=== PATIENT | male | born 1935 | race Caucasian/White ===

== ENCOUNTER 2018-06-18 09:33 | Observation (INO) | payer OTHER, MEDICARE ==
[2018-06-18] MEDS ORDERED: ADENOSINE 6 MG/2 ML VIAL IVPUSH ONE ×2 (09:41→10:01)
--- NOTE | 2018-06-18 09:43 | PDOC ---
Attending Attestation - Resident Resident Name: Franc Reynoso - ED Attending Attestation I have performed the following: I have examined & evaluated the patient, The case was reviewed & discussed with the resident, I agree w/resident's findings & plan, Exceptions are as noted - HPI HPI: 06/18/18 10:12 82y M hx of CABG raynauds syndrome, BPH, HL, hypothryoidism, htn, brought in by PMD for evaluation of sob/palpitations. Pt states he was feelnig unwell for approx 10 days with some weakness when ambulating occasionally but w/o cp, n/v, dipahorsis, cough, n/v, diarrhea, melena, bpr, dysuria. He does endorse some mild occasional discomfort in his R chest when he coughs/sneezes, takes a deep breath. Pt notse he was eating breakfast this morning when he started feeling palpitations. went to dr. grande office had an EKG that showed the pt was in SVT. pt denies any associated cp but notse he had some ROSENBERG/lightheaded this morning. no associated cristino cough, hemoptysis, leg swelling, calf pain, uri like symptoms PMD:Dr. Abdi Card: Dr. Hurt - Physicial Exam PE: 06/18/18 10:17 (exam from arrival) GENERAL: The patient is awake, alert, and fully oriented, Nontoxic - in no acute distress, pale appaering HEAD: Normocephalic, atraumatic. EYES: extraocular movements intact, sclera anicteric, conjunctiva clear. ENT: Normal voice, Moist mucous membranes. NECK: Normal range of motion, supple LUNGS: Breath sounds equal, clear to auscultation bilaterally. No wheezes, no rhonchi, no rales. HEART: tachycardic, ABDOMEN: Soft, nontender, No guarding, no rebound. . No CVA tenderness EXTREMITIES: Normal range of motion, no edema. no calf tenderness, neg homans sign NEUROLOGICAL: No facial assymetry, Normal speech, nromal gait, moving all 4 extremities spontaneously and symmetrically PSYCH: Normal mood, normal affect. SKIN: Warm, Dry, - Critical Care Time Total Critical Care Time: 45 Critical Care Statement: The care of this patient involved high complexity decision making to prevent further life threatening deterioration of the patient 's condition and/or to evaluate & treat vital organ system(s) failure or risk of failure. - Medical Decision Making 06/18/18 10:18 upon arrival, the patient's heart rate was in the 160s appeared regular. The patient was immediately placed on site monitor EKG revealed SVT. Attempted Valsalva without success. The patient was given 6 mg adenosine with success and breaking his SVT into a normal sinus rhythm sinus arrhythmia within improvement of the patient's clinically symptoms with resolution of his shortness of breath, lightheadedness and palpitations. pt placed on site monitor Will obtain blood work to rule out anemia, metabolic derangements, cardaic injury ua to r/o uti will dw dr. Abdi and Dr Hurt 06/18/18 10:46 pts cxr noted for RLL infiltrate vs effusion - suspect this may bethe cause of his discomfort th epast 10 days. labs unremarkble 06/18/18 12:37 cxr noted for effusion without signs of infiltrate will admit for further management of his effusion Heart Score/ECG Review - ECG Impressions Comment:: 06/18/18 10:20 Twelve-lead EKG was performed and reviewed by me. EKG performed at 9:41 HR of 158 axis is normal no st changes suggstive of ischemia impression SVT Twelve-lead EKG was performed and reviewed by me. ekg prformed at 9:49am There is normal sinus rhythm with a normal rate. rate of 94 normal axis There is normal R wave progression There are no ST or T wave abnormalities. Impression: sinus arrythmia
--- NOTE | 2018-06-18 09:59 | PDOC ---
History of Present Illness - General Chief Complaint: Tachycardia Stated Complaint: SVT Time Seen by Provider: 06/18/18 09:34 History Source: Patient, Primary Care Provider (Dr. Abdi accompanied pt to the department with EKG and HPI) Exam Limitations: No Limitations - History of Present Illness Initial Comments: HPI: 82 y/o male presenting to ER from Dr. Justice office complaining of rapid heart rate, palpitations, and shortness of breath. Noted to be in SVT on 12- lead EKG in clinic. Pt states the symptoms started this morning after eating breakfast. Denies caffeine intake or other stimulant use. Took ASA 325mg. Endorses exertional fatigue and loss of appetite over past several weeks. Denies chest pain, orthopnea, nocturnal paroxysmal dyspnea, or lower extremity swelling. Pt denies history of similar symptoms. Denies history of irregular heart rate. Is s/p quadruple CABG at [facility] in 1999 and stent in 2016. Family Hx: - Brother has silent arrhythmia PCP: Dr. Abdi Churn Driller: Dr. Matthew Hurt Social Hx: - Former smoker, 30-40 years, stopped 1999 Medical Hx: - CAD s/p stent 2016 - s/p CABG 1999 - HTN - HLD - Hypothyroidism - Raynauds - Osteoarthritis Surgical Hx: - Hernia repair - Left Hip replacement - Left knee replacement Past History - Past Medical History Allergies/Adverse Reactions: Allergies Allergy/AdvReac Type Severity Reaction Status Date / Time No Known Drug Allergies Allergy NASAL Verified 12/06/14 11:09 CONGESTION/SNEEZING seasonal allergies Allergy Uncoded 12/06/14 11:09 Home Medications: Ambulatory Orders Aspirin [Aspir 81] 81 mg PO DAILY 12/10/12 Cholecalciferol (Vitamin D3) [Vitamin D3] 2,000 unit PO DAILY tablet 02/12/16 Simvastatin 40 mg PO HS 06/18/18 Triamterene/Hydrochlorothiazid [Triamterene-Hctz 37.5-25 mg Cp] 1 each PO DAILY 06/18/18 Anemia: No Asthma: No 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) Cardiac Disorders: Yes (CAD) CVA: No COPD: No CHF: No Dementia: No Diabetes: No GI Disorders: No Disorders: No HTN: Yes Hypercholesterolemia: Yes (DX 1984) Liver Disease: No Seizures: No Thyroid Disease: Yes (HYPOTHYROIDISM) - Surgical History Abdominal Surgery: Yes (INGUINAL HERNIA REPAIR) Appendectomy: No Cardiac Surgery: Yes (QUINTUPLE BYPASS-2000; Stent (2017)) Cholecystectomy: No Lung Surgery: No Neurologic Surgery: No Orthopedic Surgery: Yes (LEFT HIP REPLACEMENT-2009; Left knee replacement) - Family Disease History Family Disease History: Heart Disease: Brother (A-Fib) - Suicide/Smoking/Psychosocial Hx Smoking History: Former smoker Years of Tobacco Use: 40 Have you smoked in the past 12 months: No Number of Cigarettes Smoked Daily: 25 If you are a former smoker, when did you quit?: 1999 Hx Alcohol Use: No Drug/Substance Use Hx: No Substance Use Type: None Hx Substance Use Treatment: No Review of Systems - Review of Systems Able to Perform ROS?: Yes Comments:: In addition to that documented in the HPI above, the additional ROS was obtained : Constitutional: Denies fevers or chills Head: Denies headache ENMT: Denies sore throat CV: Per HPI Resp: Per HPI GI: Denies vomiting or diarrhea : Denies painful urination MSK: Denies recent trauma Skin: Denies new rashes Neuro: Denies new numbness or tingling or weakness Endocrine: Denies polyuria Heme: Denies bleeding or bruising *Physical Exam - Vital Signs Vital Signs (72 hours) 06/18/18 06/18/18 09:34 10:00 Temperature 97.6 F Pulse Rate 159 H Pulse Rate [ 86 Apical] Respiratory 20 18 Rate Blood Pressure 120/107 H Blood Pressure 120/73 [Left Arm] O2 Sat by Pulse 100 99 Oximetry (%) - Physical Exam Comments: Constitutional: Non-toxic elderly male appearing in no acute distress or obvious discomfort. Ambulated unassisted and without difficulty to the ED accompanied by Dr. Abdi. Alert and oriented x4. Answered all questions appropriately and completely. Speech was non-labored, non-pressured. Head: Normocephalic. No obvious external signs of trauma. Eyes: Sclerae white. Ears: Hearing grossly intact. Nose: No nasal discharge. Neck: Supple, trachea is midline. Cardiovascular / Chest: Tachycardic rate and regular rhythm. No murmur, rubs, clicks, or gallops. Peripheral pulses: radial pulses full. Respiratory: Breathing unlabored. Equal chest rise and fall. Clear to auscultation bilaterally. No stridor, no wheezing, no rhonchi. Gastrointestinal: abdomen is soft, non-tender, non-distended. Neuro: Alert and oriented. Moving all four extremities spontaneously. Gait normal. Skin: Warm, dry, and intact. Psych: Affect: appropriate. Mood: normal. ED Treatment Course - LABORATORY CBC & Chemistry Diagram: 06/18/18 10:00 06/18/18 10:00 Medical Decision Making - Medical Decision Making *Reviewed vital signs, nursing notes, and prior visit documentation (if available). 82 y/o male presenting in SVT at a ventricular rate of 158 bpm. Initial vitals unremarkable for hypotension or hypoxia. Attempted vagal maneuvers without success. IV established and 6mg of Adenosine were administered rapid IVP. Continue cardiac tracing captured conversion to sinus rhythm. Repeat 12-lead EKG revealed sinus rhythm at a ventricular rate of [address] segment elevation or depression. Will obtain CXR, CBC, CMP, Troponin, and TSH to further evaluate. CXR revealed lower right pleural effusion. Will obtain noncontrast CT scan to further evaluate given smoking history and unilateral nature. No coughing or additional respiratory symptoms. Chest CT remarkable for moderate pleural effusion with ill-defined left apical nodule. Low suspicion for pneumonia. Will withhold antibiotics at this time. Will defer further workup to inpatient versus outpatient care teams. CBC unremarkable for leukocytosis or anemia. CMP unremarkable for significant electrolyte derangement or LFT elevation. Initial troponin not elevated. Will trend at 3 hour guzman. 12:09 Telephone page sent for Dr. Hurt through clinic staff. Awaiting call back. 12:[address] Hurt. Verbally appraised of the pts HPI, ED course, and current plan of management. Requests pt be admitted for observation and Dr. Orozco be consulted. 12:[address] sent for Dr. Young, attending covering for Dr. Orozco, through clinic staff. Awaiting call back. 12:[address] Young. Verbally appraised of the pts HPI, ED course, and current plan of management. Will evaluate the pt. No additional ordered requested. 12:44 Microblog sent to [facility] for admission. Awaiting call back. 13:15 Telephone consultation with JELANI Plummer. Verbally appraised of the pts HPI, ED course, and current plan of management. Will admit pt to observation on telemetry for attending Dr. Taylor. Pt admitted to telemetry. TSH and repeat troponin pending. *DC/Admit/Observation/Transfer Diagnosis at time of Disposition: SVT (supraventricular tachycardia), Pleural effusion, right, Nodule of left lung - Discharge Dispostion Condition at time of disposition: Good Decision to Admit order: Yes - Referrals Referrals: Andrew Abdi MD [Primary Care Provider] - - Patient Instructions - Post Discharge Activity
[2018-06-18 10:15] VITALS: BMI 27.6
[2018-06-18 10:53] LABS: URINE APPEARANCE Clear; URINE BILIRUBIN Negative (NEGATIVE); URINE COLOR Yellow; URINE GLUCOSE (UA) Negative (NEGATIVE); URINE KETONE Negative (NEGATIVE); URINE LEUK ESTERASE Negative (NEGATIVE); URINE NITRITE Negative (NEGATIVE); URINE PROTEIN Negative (NEGATIVE); URINE UROBILINOGEN 0.2 (0.2-1.0)
[2018-06-18 11:14] LABS: BASO % 0.1 % (0-2.0); EOS % 2.5 % (0-4.5); HEMATOCRIT 43.5 % (35.4-49); HEMOGLOBIN 14.3 GM/dl (11.7-16.9); LYMPH % 13.8 % (8-40); MCH 30.4 pg (25.7-33.7); MCHC 32.9 g/dl (32.0-35.9); MEAN CELL VOLUME 92.4 fl (80-96); MEAN PLT VOLUME 7.4 fl (7.5-11.1); NEUT % 76.6 % (42.8-82.8); PLATELET COUNT 246 K/MM3 (134-434); RBC 4.71 M/mm3 (4.00-5.60); RDW 12.9 % (11.9-15.9); WHITE BLOOD COUNT 7.5 K/mm3 (4.0-10.8)
[2018-06-18 11:25] LABS: ALBUMIN 3.3 g/dl (3.4-5.0); ALK PHOS 74 U/L (45-117); ANION GAP 9 MMOL/L (8-16); BILIRUBIN,TOTAL 0.3 mg/dl (0.2-1); BLOOD UREA NITROGEN 17 mg/dl (7-18); CALCIUM 8.8 mg/dl (8.5-10); CHLORIDE 98 mmol/L (98-107); CO2 26 mmol/L (21-32); CREATININE 1.3 mg/dl (0.55-1.3); GLUCOSE,RANDOM 155 mg/dl (74-106); POTASSIUM 4.2 mmol/L (3.5-5.1); SGOT/AST 23 U/L (15-37); SGPT/ALT 11 U/L (13-61); SODIUM 133 mmol/L (136-145); TOT PROT 6.4 g/dl (6.4-8.2)
[2018-06-18 12:32] LABS: URINE RBC 0-3 /hpf (0-3); URINE WBC 0-3 (0-2)
--- NOTE | 2018-06-18 13:15 | HP ---
CHIEF COMPLAINT: Shortness of breath, palpitations PCP: Dr. Abdi Cardiology: Dr. Hurt/[facility] cardiologists HISTORY OF PRESENT ILLNESS: 82 year-old female with a PMH of HTN, HLD, CAD s/p CABG x 5v s/p stent, hypothyroidism, Raynaud's, and BPH. Patient has been feeling unwell for approximately 10 days, experiencing weakness when ambulating, and right chest discomfort with coughing, sneezing, and deep breathing. When eating breakfast this morning, patient started feeling palpitations. He went to Dr. Abdi's office and had an ECG that showed SVT. Dr. Abdi escorted the patient to the ED. ER course was notable for: (1) SVT @158bpm; vagal maneuvers without success; adenosine 6mg x 1 with conversion to SR @ 94bpm (2) CT chest: moderate RIGHT pleural effusion with an ill-defined LEFT apical nodule (3) Troponin neg x 1 Recent Travel: No PAST MEDICAL HISTORY: Hypertension Hyperlipidemia Coronary artery disease Hypothyroidism Raynaud's BPH Scalp melanoma PAST SURGICAL HISTORY: CABG x 5v (1999) Cardiac stent (2016) Left hip replacement Left knee replacement Inguinal hernia repair Social History: Smoking: quit 1999 Alcohol: quit 1989 Drugs: no Family History: brother with afib Allergies No Known Drug Allergies Allergy (Verified 12/06/14 11:09) NASAL CONGESTION/SNEEZING seasonal allergies Allergy (Uncoded 12/06/14 11:09) HOME MEDICATIONS: Home Medications Medication Instructions Recorded Aspirin [Aspir 81] 81 mg PO DAILY 12/10/12 Cholecalciferol (Vitamin D3) 2,000 unit PO DAILY tablet 02/12/16 [Vitamin D3] Simvastatin 40 mg PO HS 06/18/18 Triamterene/Hydrochlorothiazid 1 each PO DAILY 06/18/18 [Triamterene-Hctz 37.5-25 mg Cp] REVIEW OF SYSTEMS CONSTITUTIONAL: Absent: fever, chills, diaphoresis, generalized weakness, malaise, loss of appetite, weight change HEENT: Absent: rhinorrhea, nasal congestion, throat pain, throat swelling, difficulty swallowing, mouth swelling, ear pain, eye pain, visual changes CARDIOVASCULAR: +palpitations Absent: chest pain, syncope, palpitations, irregular heart rate, lightheadedness , peripheral edema RESPIRATORY: +weakness with ambulation, right chest discomfort with cough/sneeze/deep breathing Absent: cough, shortness of breath, dyspnea with exertion, orthopnea, wheezing, stridor, hemoptysis GASTROINTESTINAL: Absent: abdominal pain, abdominal distension, nausea, vomiting, diarrhea, constipation, melena, hematochezia GENITOURINARY: Absent: dysuria, frequency, urgency, hesitancy, hematuria, flank pain, genital pain MUSCULOSKELETAL: Absent: myalgia, arthralgia, joint swelling, back pain, neck pain SKIN: Absent: rash, itching, pallor HEMATOLOGIC/IMMUNOLOGIC: Absent: easy bleeding, easy bruising, lymphadenopathy, frequent infections ENDOCRINE: +palpitations Absent: unexplained weight gain, unexplained weight loss, heat intolerance, cold intolerance NEUROLOGIC: Absent: headache, focal weakness or paresthesias, dizziness, unsteady gait, seizure, mental status changes, bladder or bowel incontinence PSYCHIATRIC: Absent: anxiety, depression, suicidal or homicidal ideation, hallucinations. PHYSICAL EXAMINATION Vital Signs - 24 hr 06/18/18 06/18/18 06/18/18 09:34 10:00 10:30 Temperature 97.6 F Pulse Rate 159 H Pulse Rate [ 86 86 Apical] Respiratory 20 18 19 Rate Blood Pressure 120/107 H Blood Pressure 120/73 114/60 [Left Arm] O2 Sat by Pulse 100 99 97 Oximetry (%) 06/18/18 11:15 Temperature Pulse Rate Pulse Rate [ 81 Apical] Respiratory 18 Rate Blood Pressure Blood Pressure 112/73 [Left Arm] O2 Sat by Pulse 98 Oximetry (%) GENERAL: Awake, alert, and fully oriented, in no acute distress. HEAD: Normal with no signs of trauma. EYES: Pupils equal, round and reactive to light, extraocular movements intact, sclera anicteric, conjunctiva clear. No lid lag. EARS, NOSE, THROAT: Ears normal, nares patent, oropharynx clear without exudates. Moist mucous membranes. NECK: Normal range of motion, supple without lymphadenopathy, JVD, or masses. LUNGS: Breath sounds equal, clear to auscultation bilaterally. No wheezes, and no crackles. No accessory muscle use. HEART: Regular rate and rhythm, normal S1 and S2 +murmur ABDOMEN: Soft, nontender, not distended, normoactive bowel sounds, no guarding, no rebound tenderness MUSCULOSKELETAL: Normal range of motion at all joints. No bony deformities or tenderness. No CVA tenderness. UPPER EXTREMITIES: 2+ pulses, warm, well-perfused. No cyanosis. No clubbing. No peripheral edema. LOWER EXTREMITIES: 2+ pulses, warm, well-perfused. No calf tenderness. No peripheral edema. NEUROLOGICAL: Cranial nerves II-XII intact. Normal speech. Laboratory Results - last 24 hr 06/18/18 06/18/18 06/18/18 10:00 10:00 10:00 WBC 7.5 RBC 4.71 Hgb 14.3 Hct 43.5 MCV 92.4 MCH 30.4 MCHC 32.9 RDW 12.9 Plt Count 246 MPV 7.4 L Absolute Neuts (auto) 5.8 Neutrophils % 76.6 Lymphocytes % 13.8 D Monocytes % 7.0 Eosinophils % 2.5 Basophils % 0.1 Sodium 133 L Potassium 4.2 Chloride 98 Carbon Dioxide 26 Anion Gap 9 BUN 17 Creatinine 1.3 Creat Clearance w eGFR 52.98 Random Glucose 155 H Calcium 8.8 Total Bilirubin 0.3 AST 23 ALT 11 L Alkaline Phosphatase 74 Troponin I < 0.03 Total Protein 6.4 Albumin 3.3 L Urine Color Urine Appearance Urine pH Ur Specific [place] Urine Protein Urine Glucose (UA) Urine Ketones Urine Blood Urine Nitrite Urine Bilirubin Urine Urobilinogen Ur Leukocyte Esterase Urine RBC Urine WBC 06/18/18 10:40 WBC RBC Hgb Hct MCV MCH MCHC RDW Plt Count MPV Absolute Neuts (auto) Neutrophils % Lymphocytes % Monocytes % Eosinophils % Basophils % Sodium Potassium Chloride Carbon Dioxide Anion Gap BUN Creatinine Creat Clearance w eGFR Random Glucose Calcium Total Bilirubin AST ALT Alkaline Phosphatase Troponin I Total Protein Albumin Urine Color Yellow Urine Appearance Clear Urine pH 6.0 Ur Specific [place] 1.015 Urine Protein Negative Urine Glucose (UA) Negative Urine Ketones Negative Urine Blood Trace-intact H Urine Nitrite Negative Urine Bilirubin Negative Urine Urobilinogen 0.2 Ur Leukocyte Esterase Negative Urine RBC 0-3 Urine WBC 0-3 3 CXR: increased markings right base possibly very early infiltrate 06/18 CT chest: moderate RIGHT pleural effusion with fluid partially loculated within the major fissure; ill-defined nodule within the LEFT lung apex ASSESSMENT/PLAN: 82 year-old female with a PMH of HTN, HLD, CAD s/p CABG x 5v s/p stent, hypothyroidism, Raynaud's, and BPH. Placed on observation following an episode of SVT. Found to have a moderate right pleural effusion with associated pleuritic chest pain. SVT --converted to SR after adenosine 6mg x 1 and has remained in SR --seen and evaluated by cardiology: continue home Toprol XL 25mg daily, BP is on low side --echo pending --telemetry monitoring Hypothyroidism --TSH elevated --inrease levothyroxine from 50 to 75mcg daily CAD s/p CABG s/p stent --serial 6-hour troponins neg x 2; third pending --continue Toprol XL, ASA, Lipitor, isosorbide Hypertension --continue Ramipril, Toprol XL, HCTZ/triamterene Hyperlipidemia --continue Lipitor Right pleural effusion --new finding --no SOB, satting 100% on room air --will discuss with Dr. Abdi in am to discuss further workup BPH --continue finasteride FEN Fluids: PO intake adequate Electrolytes: replete as indicated Nutrition: low sodium DVT prophylaxis: subq heparin Dispo: continues to require observation. Full code. Visit type - Emergency Visit Emergency Visit: Yes ED Registration Date: 06/18/18 Care time: The patient presented to the Emergency Department on the above date and was hospitalized for further evaluation of their emergent condition. - New Patient This patient is new to me today: Yes Date on this admission: 06/18/18 - Critical Care Critical Care patient: No
--- NOTE | 2018-06-18 14:01 | CON.CARD ---
Consult Consult Specialty:: Cardiology Referred by:: Medicine Reason for Consultation:: SVT - History of Present Illness Chief Complaint: palpitations History of Present Illness: 82M h/o CAD s/p stent 2017, s/p CABGx4 1999, HTN, HLD, hypothyroidism p/w palpitations. Was seen by Dr. Abdi this morning in the office had made an appointment for feeling discomfort in his R flank, as he got out of the car today he complained of rapid heart beat, palps and dyspnea, 12 lead EKG shoewd SVT. Also had exertional fatigue and lower appetite recently, no chest pain, orthopnea, edema, syncope. Sees Dr. Hurt for cardio. Vagal maneuvers attempted, given 6 mg adenosine and converted to sinus rhythm. CT chest showed mod R pleural effusion. Now feels at baseline. - History Source History Provided By: Patient - Past Medical History Cardio/Vascular: Yes: CAD, HTN, Hyperlipdemia, Other (Cardiac bypass) Endocrine: Yes: Hypothyroidism - Past Surgical History Past Surgical History: Yes: Bypass (cardiac quintriple 1999 left hip replacement 2009 hernia repair inguinal) - Alcohol/Substance Use Hx Alcohol Use: No - Smoking History Smoking history: Former smoker Have you smoked in the past 12 months: No Aproximately how many cigarettes per day: 25 If you are a former smoker, when did you quit?: 1999 Home Medications - Allergies Allergies/Adverse Reactions: Allergies Allergy/AdvReac Type Severity Reaction Status Date / Time No Known Drug Allergies Allergy NASAL Verified 12/06/14 11:09 CONGESTION/SNEEZING seasonal allergies Allergy Uncoded 12/06/14 11:09 - Home Medications Home Medications: Ambulatory Orders Aspirin [Aspir 81] 81 mg PO DAILY 12/10/12 Cholecalciferol (Vitamin D3) [Vitamin D3] 2,000 unit PO DAILY tablet 02/12/16 Simvastatin 40 mg PO HS 06/18/18 Triamterene/Hydrochlorothiazid [Triamterene-Hctz 37.5-25 mg Cp] 1 each PO DAILY 06/18/18 Family Disease History - Family Disease History Family Disease History: CA: Mother (CRC 80) Review of Systems - Review of Systems Constitutional: reports: No Symptoms Eyes: reports: No Symptoms HENT: reports: No Symptoms Neck: reports: No Symptoms Cardiovascular: reports: Palpitations, Shortness of Breath Respiratory: reports: No Symptoms Gastrointestinal: reports: No Symptoms Genitourinary: reports: No Symptoms Musculoskeletal: reports: No Symptoms Integumentary: reports: No Symptoms Neurological: reports: No Symptoms Endocrine: reports: No Symptoms Hematology/Lymphatic: reports: No Symptoms Psychiatric: reports: No Symptoms Vital Signs: Vital Signs Temperature 97.7 F 06/18/18 13:00 Pulse Rate 84 06/18/18 13:00 Respiratory Rate 19 06/18/18 13:00 Blood Pressure 97/48 L 06/18/18 13:00 O2 Sat by Pulse Oximetry (%) 100 06/18/18 13:00 Constitutional: Yes: No Distress, Calm Eyes: Yes: Conjunctiva Clear, EOM Intact HENT: Yes: Atraumatic, Normocephalic Neck: Yes: Supple, Trachea Midline Respiratory: Yes: Regular, CTA Bilaterally Gastrointestinal: Yes: Normal Bowel Sounds, Soft Cardiovascular: Yes: Regular Rate and Rhythm Heart Sounds: Yes: S1, S2 Musculoskeletal: No: Back Pain Extremities: No: Cold Edema: No Peripheral Pulses WNL: Yes Peripheral Pulses: 2+ Left Doralis Pedis, 2+ Right Dorsalis Pedis Integumentary: No: Jaundice Neurological: Yes: Alert, Oriented Psychiatric: No: Agitated - Other Data Labs, Other Data: CBC, BMP 06/18/18 10:00 06/18/18 10:00 Troponin, BNP 06/18/18 10:00 Troponin I < 0.03 Troponin, BNP 06/18/18 10:00 Troponin I < 0.03 Assessment/Plan EKG initial SVT [address] changes repeat EKG after 6 mg adenosine IV sinus with PACs CT chest mod R pleural effusion tele: sinus SVT - no prior episodes of palps or arrhythmia - now in sinus after adenosine 6 mg IV x1 - on metoprolol 25 mg daily at home, low BP currently, would uptitrate if BP tolerates, continue home dose for now - discussed with patient consideration of outpatient SVT ablation if recurrent, advised close follow up with Dr. Hurt after discharge - echo ordered, if rules out for IL and benign findings on echo no further cardiac workup as inpatient CAD s/p stent, CABG - trop neg x 2, no ischemic changes on EKG, unlikely ACS - continue home aspirin, bb, statin, isosorbide HLD - continue statin HTN - cont current meds R pleural effusion - noted on CT chest here - appears euvolemic, less likely CHF, echo pending - follow up CT and workup per primary
--- NOTE | 2018-06-18 14:04 | EKG ---
Test Reason : Blood Pressure : / mmHG Vent. Rate : 094 BPM Atrial Rate : 094 BPM P-R Int : 132 ms QRS Dur : 084 ms QT Int : 342 ms P-R-T Axes : 001 105 005 degrees QTc Int : 427 ms SINUS RHYTHM WITH PREMATURE SUPRAVENTRICULAR COMPLEXES POSSIBLE RIGHT VENTRICULAR HYPERTROPHY ABNORMAL ECG WHEN COMPARED WITH ECG OF 18-JUN-2018 09:41, FUSION COMPLEXES ARE NO LONGER PRESENT PREMATURE VENTRICULAR COMPLEXES ARE NO LONGER PRESENT PREMATURE SUPRAVENTRICULAR COMPLEXES ARE NOW PRESENT VENT. RATE HAS DECREASED BY 64 BPM Confirmed by AGNES DAMIAN MD ([id number]) on 06/18/2018 2:03:53 PM Referred By: Confirmed By:AGNES DAMIAN MD
--- NOTE | 2018-06-18 14:04 | EKG ---
Test Reason : Blood Pressure : / mmHG Vent. Rate : 081 BPM Atrial Rate : 081 BPM P-R Int : 112 ms QRS Dur : 082 ms QT Int : 376 ms P-R-T Axes : 114 -27 018 degrees QTc Int : 436 ms NORMAL SINUS RHYTHM INFERIOR INFARCT , AGE UNDETERMINED ABNORMAL ECG WHEN COMPARED WITH ECG OF 18-JUN-2018 09:49, PREMATURE SUPRAVENTRICULAR COMPLEXES ARE NO LONGER PRESENT QRS AXIS SHIFTED LEFT INFERIOR INFARCT IS NOW PRESENT NONSPECIFIC T WAVE ABNORMALITY NOW EVIDENT IN LATERAL LEADS Confirmed by AGNES DAMIAN MD ([id number]) on 06/18/2018 2:04:07 PM Referred By: ROSA M MULLINS Confirmed By:AGNES DAMIAN MD
--- NOTE | 2018-06-18 14:05 | EKG ---
Test Reason : Blood Pressure : / mmHG Vent. Rate : 158 BPM Atrial Rate : 049 BPM P-R Int : 000 ms QRS Dur : 086 ms QT Int : 284 ms P-R-T Axes : 000 114 020 degrees QTc Int : 460 ms SUPRAVENTRICULAR TACHYCARDIA WITH PREMATURE VENTRICULAR COMPLEXES OR FUSION COMPLEXES RIGHT AXIS DEVIATION RIGHT VENTRICULAR HYPERTROPHY ABNORMAL ECG NO PREVIOUS ECGS AVAILABLE Confirmed by AGNES DAMIAN MD ([id number]) on 06/18/2018 2:04:38 PM Referred By: Confirmed By:AGNES DAMIAN MD
[2018-06-18] MEDS ORDERED: ATORVASTATIN CA 20 MG TABLET (FP) PO SCH (22:00)
[2018-06-18] MEDS ORDERED: PATIENT'S OWN MEDICATION (NON-FORMULARY) (Simvastatin [Simvastatin] 40 MG) PO SCH (22:00)
[2018-06-19] MEDS: HEPARIN NA (PORCINE) 5,000 UNITS/ML 1ML VIAL SQ SCH ×2 (01:29→10:12)
[2018-06-19 06:47] VITALS: BP 152/72; PULSE 72; TEMP 97.8
[2018-06-19] MEDS ORDERED: LEVOTHYROXINE NA 75 MCG TABLET (FP) PO SCH (07:00)
[2018-06-19] MEDS ORDERED: ISOSORBIDE MONONITRATE 30 MG TAB.SR.24H (FP) PO SCH (07:00)
[2018-06-19] MEDS ORDERED: LEVOTHYROXINE NA 50 MCG TABLET (FP) PO SCH (07:00)
[2018-06-19 07:47] LABS: BASO % 0.5 % (0-2.0); EOS % 4.9 % (0-4.5); HEMATOCRIT 41.5 % (35.4-49); HEMOGLOBIN 13.9 GM/dl (11.7-16.9); MCHC 33.5 g/dl (32.0-35.9); MEAN CELL VOLUME 92.7 fl (80-96); MEAN PLT VOLUME 6.9 fl (7.5-11.1); MONO % 7.3 % (3.8-10.2); NEUT % 70.3 % (42.8-82.8); PLATELET COUNT 222 K/MM3 (134-434); RBC 4.47 M/mm3 (4.00-5.60); RDW 13.1 % (11.9-15.9); WHITE BLOOD COUNT 6.3 K/mm3 (4.0-10.8)
[2018-06-19 07:56] LABS: ALK PHOS 70 U/L (45-117); ANION GAP 7 MMOL/L (8-16); BILIRUBIN,TOTAL 0.7 mg/dl (0.2-1); BLOOD UREA NITROGEN 14 mg/dl (7-18); CALCIUM 8.7 mg/dl (8.5-10); CHLORIDE 101 mmol/L (98-107); CO2 28 mmol/L (21-32); CREATININE 1.2 mg/dl (0.55-1.3); GLUCOSE,RANDOM 115 mg/dl (74-106); POTASSIUM 4.5 mmol/L (3.5-5.1); SGOT/AST 15 U/L (15-37); SGPT/ALT 10 U/L (13-61); SODIUM 136 mmol/L (136-145); TOT PROT 5.8 g/dl (6.4-8.2)
[2018-06-19 07:57] LABS: INR 1.15 (0.82-1.09); PROTHROMBIN TIME (PATIENT) 12.8 SEC (10.2-13.0)
[2018-06-19] MEDS ORDERED: FINASTERIDE 5 MG TABLET (FP) PO SCH (10:00)
[2018-06-19] MEDS ORDERED: TRIAMTERENE AND HCTZ - 37.5 MG/25 MG CAPSULE PO SCH (10:00)
[2018-06-19] MEDS ORDERED: ASPIRIN COATED 81 MG TABLET.EC PO SCH (10:00)
[2018-06-19] MEDS ORDERED: metoPROLOL SUCCINATE 25 MG TAB.SR.24H (FP) PO SCH (10:00)
[2018-06-19] MEDS ORDERED: RAMIPRIL 5 MG CAPSULE (FP) PO SCH (10:00)
--- NOTE | 2018-06-19 10:00 | DS ---
Physical Exam: SUBJECTIVE: Patient seen and examined OBJECTIVE: Vital Signs Period Temp Pulse Resp BP Sys/Li Pulse Ox Last 24 Hr 97.4 F-98.5 F 62-86 16-19 90-152/48-73 96-100 PHYSICAL EXAM GENERAL: The patient is awake, alert, and fully oriented, in no acute distress. HEAD: Normal with no signs of trauma. EYES: PERRL, extraocular movements intact, sclera anicteric, conjunctiva clear. ENT: Ears normal, nares patent, oropharynx clear without exudates, moist mucous membranes. NECK: Trachea midline, full range of motion, supple. LUNGS: Breath sounds equal, clear to auscultation bilaterally, no wheezes, no crackles, no accessory muscle use. HEART: Regular rate and rhythm, S1, S2 without murmur, rub or gallop. ABDOMEN: Soft, nontender, nondistended, normoactive bowel sounds, no guarding, no rebound, no hepatosplenomegaly, no masses. EXTREMITIES: 2+ pulses, warm, well-perfused, no edema. NEUROLOGICAL: Cranial nerves II through XII grossly intact. Normal speech, gait not observed. PSYCH: Normal mood, normal affect. SKIN: Warm, dry, normal turgor, no rashes or lesions noted. LABS Laboratory Results - last 24 hr 06/18/18 06/18/18 06/18/18 10:00 10:00 10:00 WBC 7.5 RBC 4.71 Hgb 14.3 Hct 43.5 MCV 92.4 MCH 30.4 MCHC 32.9 RDW 12.9 Plt Count 246 MPV 7.4 L Absolute Neuts (auto) 5.8 Neutrophils % 76.6 Lymphocytes % 13.8 D Monocytes % 7.0 Eosinophils % 2.5 Basophils % 0.1 PT with INR INR PTT (Actin FS) Sodium 133 L Potassium 4.2 Chloride 98 Carbon Dioxide 26 Anion Gap 9 BUN 17 Creatinine 1.3 Creat Clearance w eGFR 52.98 Random Glucose 155 H Calcium 8.8 Magnesium Total Bilirubin 0.3 AST 23 ALT 11 L Alkaline Phosphatase 74 Troponin I < 0.03 Total Protein 6.4 Albumin 3.3 L TSH 6.15 H D Urine Color Urine Appearance Urine pH Ur Specific [place] Urine Protein Urine Glucose (UA) Urine Ketones Urine Blood Urine Nitrite Urine Bilirubin Urine Urobilinogen Ur Leukocyte Esterase Urine RBC Urine WBC 06/18/18 06/18/18 06/18/18 10:00 10:40 13:05 WBC RBC Hgb Hct MCV MCH MCHC RDW Plt Count MPV Absolute Neuts (auto) Neutrophils % Lymphocytes % Monocytes % Eosinophils % Basophils % PT with INR INR PTT (Actin FS) Sodium Potassium Chloride Carbon Dioxide Anion Gap BUN Creatinine Creat Clearance w eGFR Random Glucose Calcium Magnesium 2.2 Total Bilirubin AST ALT Alkaline Phosphatase Troponin I 0.04 Total Protein Albumin TSH Urine Color Yellow Urine Appearance Clear Urine pH 6.0 Ur Specific [place] 1.015 Urine Protein Negative Urine Glucose (UA) Negative Urine Ketones Negative Urine Blood Trace-intact H Urine Nitrite Negative Urine Bilirubin Negative Urine Urobilinogen 0.2 Ur Leukocyte Esterase Negative Urine RBC 0-3 Urine WBC 0-3 06/18/18 06/18/18 06/19/18 16:05 22:10 07:31 WBC 6.3 RBC 4.47 Hgb 13.9 Hct 41.5 MCV 92.7 MCH 31.0 MCHC 33.5 RDW 13.1 Plt Count 222 MPV 6.9 L Absolute Neuts (auto) 4.4 Neutrophils % 70.3 Lymphocytes % 17.0 D Monocytes % 7.3 Eosinophils % 4.9 H D Basophils % 0.5 D PT with INR INR PTT (Actin FS) Sodium Potassium Chloride Carbon Dioxide Anion Gap BUN Creatinine Creat Clearance w eGFR Random Glucose Calcium Magnesium Total Bilirubin AST ALT Alkaline Phosphatase Troponin I 0.05 0.04 Total Protein Albumin TSH Urine Color Urine Appearance Urine pH Ur Specific [place] Urine Protein Urine Glucose (UA) Urine Ketones Urine Blood Urine Nitrite Urine Bilirubin Urine Urobilinogen Ur Leukocyte Esterase Urine RBC Urine WBC 06/19/18 06/19/18 07:31 07:31 WBC RBC Hgb Hct MCV MCH MCHC RDW Plt Count MPV Absolute Neuts (auto) Neutrophils % Lymphocytes % Monocytes % Eosinophils % Basophils % PT with INR 12.8 INR 1.15 PTT (Actin FS) 29.0 Sodium 136 Potassium 4.5 Chloride 101 Carbon Dioxide 28 Anion Gap 7 L BUN 14 Creatinine 1.2 Creat Clearance w eGFR 58.11 Random Glucose 115 H Calcium 8.7 Magnesium 2.0 Total Bilirubin 0.7 AST 15 ALT 10 L Alkaline Phosphatase 70 Troponin I Total Protein 5.8 L Albumin 3.0 L TSH Urine Color Urine Appearance Urine pH Ur Specific [place] Urine Protein Urine Glucose (UA) Urine Ketones Urine Blood Urine Nitrite Urine Bilirubin Urine Urobilinogen Ur Leukocyte Esterase Urine RBC Urine WBC HOSPITAL COURSE: Date of Admission:06/18/18 Date of Discharge: 06/19/18 Minutes to complete discharge: 35 Discharge Summary Reason For Visit: SUPRAVENTRICULAR TACHYCARDIA,PLEURAL EFFUSION ON R Current Active Problems Nodule of left lung (Acute) Pleural effusion, right (Acute) SVT (supraventricular tachycardia) (Acute) Condition: Good - Instructions Referrals: Andrew Abdi MD [Primary Care Provider] - - Home Medications Comprehensive Discharge Medication List: Ambulatory Orders Aspirin [Aspir 81] 81 mg PO DAILY 12/10/12 Cholecalciferol (Vitamin D3) [Vitamin D3] 2,000 unit PO DAILY tablet 02/12/16 Simvastatin 40 mg PO HS 06/18/18 Triamterene/Hydrochlorothiazid [Triamterene-Hctz 37.5-25 mg Cp] 1 each PO DAILY 06/18/18 This patient is new to me today: No Emergency Visit: Yes ED Registration Date: 06/18/18 Care time: The patient presented to the Emergency Department on the above date and was hospitalized for further evaluation of their emergent condition. Critical Care patient: No - Discharge Referral Referred to [facility] Med P.C.: No
[2018-06-19] MEDS ORDERED: PT OWN MED DRAWER 7, Y5N ONE (10:06)
--- NOTE | 2018-06-19 10:06 | ECHO ---
Name: PURDYROXANN Exam:Adult Echocardiogram Study Date: 06/19/2018 08:27 AM Age: 82 yrs Reason For Study: aortic stenosis MMode/2D Measurements & Calculations Ao root diam: 3.1 cm LVOT diam: 2.2 cm LA dimension: 3.2 cm Doppler Measurements & Calculations MV E max christa: 78.0 cm/sec Ao V2 max: 349.0 cm/sec MV A max christa: 90.0 cm/sec Ao max P.7 mmHg MV E/A: 0.87 Ao V2 mean: 253.3 cm/sec Ao mean P.3 mmHg Ao V2 VTI: 85.5 cm SURENDRA(I,D): 0.98 cm2 SURENDRA(V,D): 0.88 cm2 LV V1 max P.7 mmHg SV(LVOT): 84.2 ml LV V1 mean P.5 mmHg LV V1 max: 82.8 cm/sec LV V1 mean: 57.3 cm/sec LV V1 VTI: 22.7 cm Procedure The study was technically difficult with many images being suboptimal in quality. Left Ventricle Left ventricular systolic function is normal. Ejection Fraction = 50-55%. Regional wall motion abnorm alities cannot be excluded due to limited visualization. Right Ventricle The right ventricle is normal in size and function. Atria Normal left and right atrial size and function. Mitral Valve There is mild mitral annular calcification. There is no mitral valve stenosis. There is trace mitral regurgitation. Tricuspid Valve The tricuspid valve is normal in structure and function. There is mild tricuspid regurgitation. 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 Pulmonic Valve The pulmonic valve is not well seen, but is grossly normal. There is no pulmonic valvular stenosis. Great Vessels The aortic root is normal size. Pericardium/Pleura There is no pericardial effusion. 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 The study was technically difficult with many images being suboptimal in quality. Regional wall motion abnormalities cannot be excluded due to limited visualization. Left ventricular systolic function is normal. Ejection Fraction = 50-55%. The right ventricle is normal in size and function. There is mild mitral annular calcification. There is trace mitral regurgitation. There is mild tricuspid regurgitation. There is no pericardial effusion. MD Vincenzo Frias 06/19/2018 10:06 AM
--- NOTE | 2018-06-19 13:48 | EKG ---
Test Reason : Blood Pressure : / mmHG Vent. Rate : 083 BPM Atrial Rate : 083 BPM P-R Int : 112 ms QRS Dur : 084 ms QT Int : 384 ms P-R-T Axes : 031 -37 062 degrees QTc Int : 451 ms SINUS RHYTHM WITH SINUS ARRHYTHMIA WITH OCCASIONAL PREMATURE VENTRICULAR COMPLEXES LEFT AXIS DEVIATION NONSPECIFIC ST ABNORMALITY ABNORMAL ECG Confirmed by GRACIELA PIZARRO MD ([id number]) on 06/19/2018 1:47:50 PM Referred By: ALMA Confirmed By:GRACIELA PIZARRO MD
== END 2018-06-19 11:45 | disposition home or self-care (01) ==
LOC: FER 09:33 → FM/S 12:35
PROVIDERS: ADMIT Internal Medicine; ATTEND Nurse Practitioner Acute Care
PROC: 3E033GC Introduction of Other Therapeutic Substance into Peripheral Vein, Percutaneous Approach (ICD-10-PCS; principal; 2018-06-18)
PROC: 3E013GC Introduction of Other Therapeutic Substance into Subcutaneous Tissue, Percutaneous Approach (ICD-10-PCS; 2018-06-18)
DX: I47.1 Supraventricular tachycardia (principal); J90 Pleural effusion, not elsewhere classified; R91.1 Solitary pulmonary nodule; I10 Essential (primary) hypertension; E78.5 Hyperlipidemia, unspecified; I25.10 Atherosclerotic heart disease of native coronary artery without angina pectoris; E03.9 Hypothyroidism, unspecified; I73.00 Raynaud's syndrome without gangrene; M19.90 Unspecified osteoarthritis, unspecified site; N40.0 Benign prostatic hyperplasia without lower urinary tract symptoms; Z85.820 Personal history of malignant melanoma of skin; Z96.642 Presence of left artificial hip joint; Z96.652 Presence of left artificial knee joint; Z95.1 Presence of aortocoronary bypass graft; Z95.5 Presence of coronary angioplasty implant and graft; Z87.891 Personal history of nicotine dependence; Z79.82 Long term (current) use of aspirin
CPT/HCPCS: 36415; 71045-TC-FY; 71250-TC; 80053; 81003; 81015; 83735; 84443; 84484; 85025; 85610; 85730; 93005; 93306-TC; 96372; 96374; 99285-25; G0378; J1644

== ENCOUNTER 2018-06-30 12:01 | Day surgery (SDC) | payer OTHER, MEDICARE ==
[2018-06-30 12:59] VITALS: BMI 27.6
[2018-06-30] MEDS ORDERED: ACETAMINOPHEN 325 MG TABLET (FP) ONE (15:25)
[2018-06-30 15:40] LABS: BF WBC & OTHER NUCLEATED CELLS 1547 /mm3
[2018-06-30 16:00] LABS: BODY FLUID BASOPHIL 1 %; BODY FLUID MACROPHAGES 15 %; BODY FLUID MESOTHELIAL 3 %; BODY FLUID MONOCYTE 17 %; BODYL FLD EOSINOPHIL 2 %
[2018-06-30 19:00] VITALS: BP 120/70; PULSE 68; TEMP 97.6
[2018-07-01 15:24] LABS: BODY FLUID ALBUMIN 3.2 g/dL (.)
--- NOTE | 2018-07-03 13:18 | PATH ---
Cytology Non-Gynecological Report Patient Name: ROXANN PURDY Med. Rec. #: [id number] /Age/Gender: 1935 (Age: 82) / M Account: [id number] Location: RADIOLOGY INTER Taken: 06/30/2018 Received: 07/01/2018 Reported: 07/03/2018 Physicians: Jonnathan Veras M.D. Specimen(s) Received A: RIGHT PLEURAL FLUID RECEIVED IN 50% ALCOHOL B: RIGHT PLEURAL FLUID RECEIVED FRESH Clinical History History of malignant melanoma Final Diagnosis PLEURAL FLUID, RIGHT, THORACENTESIS: SATISFACTORY FOR EVALUATION NO MALIGNANT CELLS IDENTIFIED. MESOTHELIAL CELLS, macrophages, and RARE LYMPHOCYTES PRESENT. Electronically Signed Peterson Campos M.D. Gross Description A. Approximately 50cc of yellow fluid received fixed in 50% alcohol. One slide and one cellblock prepared. B. Approximately 900cc of yellow fluid received fresh. One slide and one cellblock prepared.
== END 2018-06-30 16:45 | disposition home or self-care (01) ==
LOC: JRADIR 12:01
PROVIDERS: ATTEND Internal Medicine Pulmonary Disease
PROC: 0W993ZZ Drainage of Right Pleural Cavity, Percutaneous Approach (ICD-10-PCS; principal; 2018-06-30)
PROC: BB4BZZZ Ultrasonography of Pleura (ICD-10-PCS; 2018-06-30)
DX: J90 Pleural effusion, not elsewhere classified (principal)
CPT/HCPCS: 36415; 71045-TC-FY; 76942; 82042; 82150; 82465; 82945; 83615; 83986; 84157; 84478; 87070; 87075; 87102; 87116; 87205; 87206; 87210; 88108; 88305-TC

== ENCOUNTER 2018-07-20 07:22 | Inpatient (IN) | payer OTHER, MEDICARE ==
[2018-07-20] MEDS ORDERED: ADENOSINE 6 MG/2 ML VIAL IVPUSH ONE ×2 (07:27→08:08)
[2018-07-20 07:48] VITALS: BMI 28.6
--- NOTE | 2018-07-20 07:55 | PDOC ---
History of Present Illness - General Chief Complaint: Irregular Heart Beat Stated Complaint: Irregular Heart Beat Time Seen by Provider: 07/20/18 07:25 History Source: Patient Exam Limitations: No Limitations - History of Present Illness Initial Comments: Pt is an 82 yo M, with PMH of [place] (CABG, multiple stents), HTN, and hypothyroidism, who is presenting from pre-op surgery for tachycardia. Pt was at [facility] for a scheduled removal of lung fluid and lung biopsy with Dr. Ross. Pt presented to pre-op with palpitations and was in SVT. Pt had similar episode 2 weeks ago, around the same time that the fluid was last drained from his R lung. Pt states he has been compliant with his medications. The episode was relieved at that time with 6 mg IV adenosine (at [facility]) . Pt denies any recent fevers/chills, headache, vision changes, syncope, chest pain, productive cough, SOB, orthopnea/PND, nausea/vomiting, abdominal pain, urinary symptoms, diarrhea/constipation, or leg swelling. Social: Pt denies any cigarette, alcohol, or drug use. Pt denies any recent travel or sick contacts. Surgical: lung effusion drainage 2 weeks, CABG and stents as above. Family: brother with A-fib and SD. 07/20/18 08:18 Past History - Travel Traveled outside of the country in the last 30 days: No Close contact w/someone who was outside of country & ill: No - Past Medical History Allergies/Adverse Reactions: Allergies Allergy/AdvReac Type Severity Reaction Status Date / Time No Known Drug Allergies Allergy NASAL Verified 06/29/18 15:11 CONGESTION/SNEEZING seasonal allergies Allergy Uncoded 12/06/14 11:09 Home Medications: Ambulatory Orders Aspirin [Aspir 81] 81 mg PO DAILY 12/10/12 Cholecalciferol (Vitamin D3) [Vitamin D3] 2,000 unit PO ASDIR tablet 02/12/16 Simvastatin 40 mg PO HS 06/18/18 Triamterene/Hydrochlorothiazid [Triamterene-Hctz 37.5-25 mg Cp] 1 each PO DAILY 06/18/18 Levothyroxine [Synthroid -] 50 mcg PO DAILY@0700 06/29/18 Anemia: No Asthma: No 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) Cardiac Disorders: Yes (CAD; SVT) CVA: No COPD: No CHF: No Dementia: No Diabetes: No GI Disorders: No Disorders: No HTN: Yes Hypercholesterolemia: Yes (DX 1985) Liver Disease: No Seizures: No Thyroid Disease: Yes (HYPOTHYROIDISM) - Surgical History Abdominal Surgery: Yes (INGUINAL HERNIA REPAIR) Appendectomy: No Cardiac Surgery: Yes (QUINTUPLE BYPASS-1999; Stent (2017)) Cholecystectomy: No Lung Surgery: No (thoracentesis) Neurologic Surgery: No Orthopedic Surgery: Yes (LEFT HIP REPLACEMENT-2009; righ hip replacement) - Family Disease History Family Disease History: Heart Disease: Brother (A-Fib) - Immunization History Immunization Up to Date: Yes - Suicide/Smoking/Psychosocial Hx Smoking History: Never smoked Years of Tobacco Use: 40 Have you smoked in the past 12 months: No Number of Cigarettes Smoked Daily: 25 If you are a former smoker, when did you quit?: 1999 Information on smoking cessation initiated: No Hx Alcohol Use: No Drug/Substance Use Hx: No Substance Use Type: None Hx Substance Use Treatment: No Review of Systems - Review of Systems Able to Perform ROS?: Yes Is the patient limited Citizen [place] proficient: No Constitutional: Yes: Weight Stable. No: Chills, Diaphoresis, Fever, Loss of Appetite, Malaise, Weakness HEENTM: No: Blurred Vision, Recent change in vision, Double Vision, Nose Pain, Nose Congestion, Throat Pain, Throat Swelling, Difficulty Swallowing Respiratory: No: Cough, Orthopnea, Shortness of Breath, Wheezing, Productive cough, Hemoptysis Cardiac (ROS): Yes: Irregular Heart Rate, Palpitations. No: Chest Pain, Edema, Lightheadedness, Syncope, Chest Tightness ABD/GI: No: Constipated, Diarrhea, Nausea, Poor Appetite, Poor Fluid Intake, Rectal Bleeding, Vomiting : No: Burning, Dysuria, Pain, Urgency Musculoskeletal: No: Back Pain, Joint Pain Integumentary: No: Erythema, Flushing, Rash Neurological: No: Headache, Numbness, Weakness, Unsteady Gait, Dizziness Psychiatric: No: Sleep Pattern Change, Change in Appetite Endocrine: No: Increased Urine, Change in Weight Hematologic/Lymphatic: No: Anemia, Blood Clots, Easy Bleeding, Easy Bruising All Other Systems: Reviewed and Negative *Physical Exam - Vital Signs Last Vital Signs Temp Pulse Resp BP Pulse Ox 84 17 117/65 100 07/20/18 07:48 07/20/18 07:48 07/20/18 07:48 07/20/18 07:51 - Physical Exam Comments: SVT on arrival (narrow complex tachycardia on ECG in 150s), BP 88/60, pt afebrile. Pt appears anxious, mildly diaphoretic. Normal body habitus. PE showed pt alert and oriented. 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 Head normocephalic, atraumatic. Eyes PERRLA, EOMI. Oropharynx without erythema or exudates, no LAD b/l. No nasal congestion, hearing intact. Tachycardic on auscultation, regular rhythm. Clear heart sounds, S1/S2, no JVD, b/l pedal edema, or heart murmur. Diminished lung sounds on R anterior lobes, no respiratory distress, wheezes, crackles, or accessory muscle use. No abdominal or CVA tenderness to palpation, no rebound, no guarding. Abdomen soft, non-distended, and with normoactive bowel sounds. Skin without jaundice or rash. 07/20/18 08:13 ED Treatment Course - LABORATORY CBC & Chemistry Diagram: 07/20/18 07:52 07/20/18 07:56 Medical Decision Making - Medical Decision Making Pt was seen at bedside, also will be seen by attending Dr. Ramirez. Pt presenting from pre-op surgery for tachycardia. Pt was at [facility] for a scheduled removal of lung fluid and lung biopsy with Dr. Ross. Pt presented to pre-op with palpitations and was in SVT. Pt had similar episode 2 weeks ago, around the same time that the fluid was last drained from his R lung. Pt states he has been compliant with his medications. The episode was relieved at that time with 6 mg IV adenosine (at [facility]). Pt denies any recent fevers/chills, headache, vision changes, syncope, chest pain, productive cough, SOB, orthopnea/ PND, nausea/vomiting, abdominal pain, urinary symptoms, diarrhea/constipation, or leg swelling. SVT likely 2/2 to pulmonary effusion, as symptoms started around the same time. ECG showed no new ST segment changes, no chest pain. Ordered work-up including CBC, CMP, troponin, TSH to r/o other secondary causes of SVT (hyperthyroid, infection) and will get troponin due to increased cardiac demand. Provided 6 mg IV adenosine for improvement of tachycardia. Will continue to reassess pt and monitor for symptomatic improvement. ECG: SVT, HR 151, QRS 84, QTc 456. No TWIs or significant ST segment changes. No significant changes from prior ECG (06/19/2018). Post adenosine, pt HR improved to 80s, BP 117/65, pt feeling much more comfortable. Repeat ECG: Sinus with occasional PVCs (HR 82, QRS 84, Qtc 427), no ST segment changes. LAD (present on prior ECG). Paging Dr. Orozco to discuss work-up and if pt can return for procedure vs observation/admission. 07/20/18 08:13 Dr. Orzoco will come to see the pt to clear from cardiology perspective. CBC and CMP, troponin, TFTs pending. 07/20/18 08:[address] Orozco to determine ETA and to update on pt labs. CBC WNL. CMP generally WNL, TSH 7, trop <.02 -- TSH unlikely contributing to SVT, as hypothyroidism should cause lower HR. 07/20/18 10:01 Pt cleared with cardiology, admitted to PACU under Dr. Ross. Pt stable in ED, no further episodes of SVT. 07/20/18 10:27 *DC/Admit/Observation/Transfer Diagnosis at time of Disposition: SVT (supraventricular tachycardia) - Discharge Dispostion Condition at time of disposition: Improved Decision to Admit order: Yes - Referrals - Patient Instructions - Post Discharge Activity
--- NOTE | 2018-07-20 08:07 | PDOC ---
Attending Attestation - Resident Resident Name: Mayuri Choi - ED Attending Attestation I have performed the following: I have examined & evaluated the patient, The case was reviewed & discussed with the resident, I agree w/resident's findings & plan, Exceptions are as noted - HPI HPI: 07/20/18 08:06 Agree with resident HPI - Physicial Exam PE: 07/20/18 08:06 agree with resident exam - Medical Decision Making 07/20/18 08:06 82yo M hx [place] (CABG, multiple stents), HTN, hypothyroidism, lung mass with effusion presents to the ED from [facility] after he was found to be tachycardic to 160. EKG consistent with SVT. Pt was set to get lung biosy/catheter placed for effusion. Pt successfully converted to sinus after adenosine 6mg. 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 \ 07/20/18 10:[address] Orozco, he is cleared for procedure Labs wnl, TSH elevated to 7, but pt has no clinical signs of hypothyroidism Spoke with Dr. Ross, pt admitted to [facility] unit Case discussed in detail with admitting physician including history, physical exam and ancillary studies. Admitting physician has assumed care for the patient, will follow all pending diagnostics and will complete the evaluation and treatment. *DC/Admit/Observation/Transfer Diagnosis at time of Disposition: SVT (supraventricular tachycardia) - Discharge Dispostion Condition at time of disposition: Improved Decision to Admit order: Yes - Referrals - Patient Instructions - Post Discharge Activity - Attestations Physician Attestion: 07/20/18 10:17 I, Dr. Shonna Ramirez MD, attest that this document has been prepared under my direction and personally reviewed by me in its entirety. I further attest, that it accurately reflects all work, treatment, procedures and medical decision -making performed by me. Heart Score/ECG Review #1 07/20/18 09:20 Twelve-lead EKG was performed and reviewed by me. Supraventricular tachycardia, rate 151. LAD, no SARAH #2 07/20/18 09:22 Twelve-lead EKG was performed and reviewed by me. Sinus rhythm, rate 82. Left axis deviation. Frequent PVCs. No ST elevations. No TWI
[2018-07-20 08:14] LABS: BASO % 0.5 % (0-2.0); EOS % 3.6 % (0-4.5); HEMATOCRIT 43.5 % (35.4-49); LYMPH % 11.6 % (8-40); MCH 31.7 pg (25.7-33.7); MCHC 34.4 g/dl (32.0-35.9); MEAN PLT VOLUME 7.2 fl (7.5-11.1); MONO % 7.8 % (3.8-10.2); NEUT % 76.5 % (42.8-82.8); PLATELET COUNT 294 K/MM3 (134-434); RBC 4.73 M/mm3 (4.00-5.60); RDW 13.6 % (11.9-15.9); WHITE BLOOD COUNT 9.5 K/mm3 (4.0-10.0)
[2018-07-20 08:37] LABS: ALBUMIN 3.4 g/dl (3.4-5.0); ALK PHOS 92 U/L (45-117); ANION GAP 8 MMOL/L (8-16); BILIRUBIN,TOTAL 0.5 mg/dL (0.2-1); BLOOD UREA NITROGEN 20 mg/dL (7-18); CALCIUM 9.1 mg/dL (8.5-10.1); CHLORIDE 96 mmol/L (98-107); CO2 28 mmol/L (21-32); CREATININE 1.3 mg/dL (0.55-1.3); GLUCOSE,RANDOM 135 mg/dL (74-106); POTASSIUM 4.1 mmol/L (3.5-5.1); SGOT/AST 12 U/L (15-37); SGPT/ALT 14 U/L (13-61); SODIUM 133 mmol/L (136-145)
--- NOTE | 2018-07-20 09:19 | CON.CARD ---
Consult Consult Specialty:: cardio - History of Present Illness Chief Complaint: SVT History of Present Illness: 82 M with suspected advanced lung cancer, pleural effusion, here for biopsy and noted to be in SVT. felt vague, mild palpitations during SVT today, no cp, sob. had palpit as well during SVT 06/30. no arrhythmia sx's since then. walks 1 flight of stairs normal pace without sx's. feels sob/tired on hills--chronic sx for 2 yrs or more he says. no chest pain. sees dr gomez. PMH: remote CABG. s/p PCI 2016 HTN HPL hypothyroidism - Past Medical History Cardio/Vascular: Yes: CAD, HTN, Hyperlipdemia, Other (Cardiac bypass) Endocrine: Yes: Hypothyroidism - Past Surgical History Past Surgical History: Yes: Bypass (cardiac quintriple 1999 left hip replacement 2008 hernia repair inguinal) - Alcohol/Substance Use Hx Alcohol Use: No - Smoking History Smoking history: Former smoker Have you smoked in the past 12 months: No Aproximately how many cigarettes per day: 25 If you are a former smoker, when did you quit?: 1999 Home Medications - Allergies Allergies/Adverse Reactions: Allergies Allergy/AdvReac Type Severity Reaction Status Date / Time No Known Drug Allergies Allergy NASAL Verified 06/29/18 15:11 CONGESTION/SNEEZING seasonal allergies Allergy Uncoded 12/06/14 11:09 - Home Medications Home Medications: Ambulatory Orders Aspirin [Aspir 81] 81 mg PO DAILY 12/10/12 Cholecalciferol (Vitamin D3) [Vitamin D3] 2,000 unit PO ASDIR tablet 02/12/16 Simvastatin 40 mg PO HS 06/18/18 Triamterene/Hydrochlorothiazid [Triamterene-Hctz 37.5-25 mg Cp] 1 each PO DAILY 06/18/18 Levothyroxine [Synthroid -] 50 mcg PO DAILY@0700 06/29/18 Family Disease History - Family Disease History Family Disease History: CA: Mother (CRC 80) Review of Systems - Review of Systems Constitutional: denies: Chills, Fever Eyes: denies: Eye Pain HENT: denies: Nasal Congestion Neck: denies: Stiffness Cardiovascular: reports: Palpitations. denies: Edema Respiratory: denies: Orthopnea, PND Gastrointestinal: denies: Diarrhea, Rectal Bleeding Genitourinary: denies: Burning, Hematuria Musculoskeletal: denies: Muscle Pain Integumentary: denies: Rash Neurological: denies: Numbness, Seizure, Syncope Endocrine: denies: Excessive Sweating Hematology/Lymphatic: denies: Excessive Bleeding Vital Signs: Vital Signs Temperature 97.4 F L 07/20/18 06:48 Pulse Rate 154 H 07/20/18 06:48 Respiratory Rate 18 07/20/18 06:48 Blood Pressure 128/75 07/20/18 06:48 O2 Sat by Pulse Oximetry (%) 97 07/20/18 06:46 Constitutional: Yes: Well Nourished, No Distress Eyes: No: Sclera Icterus HENT: No: Nasal Congestion Neck: No: Decreased ROM Respiratory: Yes: CTA Bilaterally, Diminished (R base). No: Accessory Muscle Use, Rales, Wheezes Gastrointestinal: Yes: Normal Bowel Sounds. No: Distention, Hepatomegaly, Palpable Mass, Tenderness Cardiovascular: Yes: Regular Rate and Rhythm JVD: No Carotid Bruit: No PMI: Non-Displaced Heart Sounds: Yes: S1, S2. No: Gallop Murmur: Yes: Systolic Murmur (soft early peaking JD lusb, s1/s2 soft intensity no split heard). No: Diastolic Murmur Musculoskeletal: Yes: Other (No kyphosis) Extremities: No: Cool, Cyanosis Edema: No Peripheral Pulses: 2+ Left Carotid, 2+ Right Carotid, 2+ Left Doralis Pedis, 2+ Right Dorsalis Pedis Integumentary: No: Jaundice Neurological: Yes: Alert, Oriented (x3) Psychiatric: No: Agitated Assessment/Plan ECG 07/20: SVT at 151 bpm (no p waves visible); old IWMI. ST depressions #2: NSR. old IWMI. no STs Echo 06/30 (): TDS. nl LVSF. nl RV. nl LA. mod-sev note: labs not showing up under this admit but reviewed with resident-- unrevealing SVT - presented 06/30 with sx's of palps and dyspnea, aborted with adenosine (6mg x1) - on metoprolol 25 mg daily previous regimen--continued at that time - again today when came for lung biopsy - rec increase metoprolol to 25 bid at home when discharged, to prophylax recurrent symptomatic SVT CAD s/p stent, CABG - rate related ST changes during SVT (no sx's)--resolved promptly on 2nd ecg when in sinus - no angina at home or during SVT here. troponin neg. - continue home aspirin, bb, statin, isosorbide aortic stenosis: -cath at [facility] 02/2017 with no significant -echo here 06/30 with moderate to severe . the prior echo images reviewed by me , with severe restriction of parasternal long axis images, however short axis images while TDS appear to show less than severe restriction of mobility ( probably [id number] or moderate) and gradients are in moderate range. -repeat echo done by dr gomez 06/30 (verabl report from him) without significant -he has had preserved functional capacity WHICH IS STABLE FOR COUPLE OF YEARS NOW, i.e. prior to 02/2017 cath which showed no . hence he has no attributable sx's lung malignancy with pleural effusion, preop CV eval: - has been seen by dr chase and planned for biopsy today - [id number] Ao stenosis on echo done at hospital 06/30. - revised CV risk index = 1, preserved functional capacity. no s/sx of active cad or chf. - his SVT is hemodynamically stable when occurs with minimal sx's, and resolves promptly (x2 now) with adenosine 6mg IV dose. - at acceptable risk for periop CV complications, may proceed without further testing - i recommend have adenosine on hand and ready in case has PSVT recurrence during surgery HLD - continue statin HTN - bp controlled - cont current meds
[2018-07-20] MEDS ORDERED: VERAPAMIL HCL 5 MG/2 ML VIAL IVPUSH ONE (10:46)
[2018-07-20] MEDS ORDERED: PROPOFOL 20 ML ONE (10:47)
[2018-07-20] MEDS ORDERED: ROCURONIUM BROMIDE 50 MG/5 ML VIAL ONE (10:47)
[2018-07-20] MEDS ORDERED: MIDAZOLAM HCL 2 MG/2 ML SINGLE DOSE VIAL ONE (10:47)
[2018-07-20] MEDS ORDERED: ETOMIDATE 20 MG/10 ML AMPUL IVPUSH ONE (10:47)
[2018-07-20] MEDS ORDERED: SODIUM CHLORIDE 0.9% P/F 10 ML VIAL IJ ONE (10:51)
[2018-07-20] MEDS ORDERED: BUPIVACAINE HCL/PF 0.25% (2.5MG/ML) 10 ML VIAL ONE (11:40)
[2018-07-20] MEDS ORDERED: LIDOCAINE 1%-EPI 1:100,000 30 ML MDV IJ ONE ×2 (11:40)
[2018-07-20] MEDS ORDERED: ONDANSETRON 4 MG/2 ML VIAL IVPUSH PRN (13:21)
[2018-07-20] MEDS ORDERED: ACETAMINOPHEN 325 MG TABLET (FP) PO PRN (13:27)
--- NOTE | 2018-07-20 13:38 | PN ---
Progress Note (short form) - Note Progress Note: PULMONARY CONSULTATION DICTATED 07/20/18 IMP R PLEURAL EFFUSION S/P R VAT ,PLEURAL BX,PLEUR-X CATH INSERTION SVT ASHD S/P CABG,STENTS PROSTATE CA H/O MELANOMA SCALP S/P RESECTION PLAN ANALGESICS O2 INCENTIVE SPIROMETER CARDIAC MONITORING CHECK PATH DR PABON Problem List - Problems (2) SVT (supraventricular tachycardia) Code(s): I47.1 - SUPRAVENTRICULAR TACHYCARDIA (3) Melanoma of scalp Code(s): C43.4 - MALIGNANT MELANOMA OF SCALP AND NECK (4) Nodule of left lung Code(s): R91.1 - SOLITARY PULMONARY NODULE (5) Pleural effusion, right Code(s): J90 - PLEURAL EFFUSION, NOT ELSEWHERE CLASSIFIED (6) Aortic stenosis Code(s): I35.0 - NONRHEUMATIC AORTIC (VALVE) STENOSIS
--- NOTE | 2018-07-20 14:19 | OP ---
Operative Note - Note: Operative Date: 07/20/18 Pre-Operative Diagnosis: Right pleural effusion Operation: Bronchoscopy right vats pleural and diaphragmatic pleura biopsy placement of pleur-x Findings: Multiple pleural nodules, ~800cc pleural fluid not bloody Surgeon: Rick Ross Display Trimmer: Joanne Lopez Anesthesia: General Estimated Blood Loss (mls): 5 Drains & Tubes with Location: Right pleurx Operative Report Dictated: Yes
--- NOTE | 2018-07-20 14:31 | OPR ---
Patient Name: Taj Yen MR#: [id number] Procedure Date: 07/20/2018; Date of Admission: 07/20/2018; Inpatient Procedure. Preoperative Diagnosis: 1. Pleural effusion; H/O: 2. Melanoma; 3. Prostate Cancer; 4. CAD s/p CABG; 5. SVT; 6. Hypothyroid. Postoperative Diagnosis: Same Procedure: 1. Flexible Bronchoscopy; 2. Right thoracoscopy, pleural biopsy, intercostal nerve block; 3. Placement of pleur-x. Indication: Pleural effusion (recurrent); Surgeon(s): Rick Ross MD Cosurgeon: na Superintendent Institution Surgeon: MAKAYLA Bird Anesthesia: General endotracheal with double-lumen tube; Findings: Bronchoscopy: no lesions; but collapsed edematous airway with secretions Thoracoscopy: ~900cc serous fluid. Specimens Sent: 1. Pleural fluid for cytology; 2. Diaphragmatic pleura for frozen and permanent; 3. Pleura for permanent. Complications: none Drains / Tubes / Catheters: na Hardware / Implants: na Blood / Fluid Losses: 10cc Post-Operative Condition: Stable. Indications: This patient is an 81 year-old male former smoker referred for a recurrent effusion and dyspnea on exertion. Risks, benefits, and alternatives of the procedure were discussed with the patient. All questions were addressed and answered and he agreed to surgery. Details of Procedure: The patient was brought into the operating room. He was placed supine on the table, sedated, and intubated. A bronchoscopy was performed with the above findings through the double-lumen. Next, he was placed in the left lateral decubitus position. The lung was collapsed and the patient was prepared and draped. We made one incision and surveyed the pleura. We gave an intercostal block. Fluid was removed and biopsies were taken. Next we obtained hemostasis and placed a tunneled pleur-x and secured it. The lung was expanded. All wounds were closed. Sterile dressings were placed. He was awakened and extubated and tolerated the procedure well. I was present for the entire procedure and was available postoperatively to care for him. I will follow him as an inpatient and as an outpatient.
--- NOTE | 2018-07-20 14:58 | CONSULT ---
Consult Consult Specialty:: Internal Medicine Referred by:: Dr Ross Reason for Consultation:: Medical management - History of Present Illness Chief Complaint: I feel ok History of Present Illness: Mr Yen is a very pleasant 82 year old male who is s/o VATS procedure. He is currently comfortable, he says that he was having pain at the site of the chest tube but this improved with medication. Aside from this he is feeling well. He denies fevers, chills, lightheadedness, dizziness, chest pain or pressure, shortness of breath, nausea, vomiting, diarrhea, swelling, or any other concerns. Looks very comfortable. - History Source History Provided By: Patient Limitations to Obtaining History: No Limitations - Past Medical History Cardio/Vascular: Yes: CAD, HTN, Hyperlipdemia, Other (Cardiac bypass) Endocrine: Yes: Hypothyroidism - Past Surgical History Past Surgical History: Yes: Bypass (cardiac quintriple 1999 left hip replacement 2008 hernia repair inguinal), Joint Replacement - Alcohol/Substance Use Hx Alcohol Use: No - Smoking History Smoking history: Former smoker Have you smoked in the past 12 months: No Aproximately how many cigarettes per day: 25 If you are a former smoker, when did you quit?: 1999 - Social History ADL: Independent Home Medications - Allergies Allergies/Adverse Reactions: Allergies Allergy/AdvReac Type Severity Reaction Status Date / Time No Known Drug Allergies Allergy NASAL Verified 06/29/18 15:11 CONGESTION/SNEEZING seasonal allergies Allergy Uncoded 12/06/14 11:09 - Home Medications Home Medications: Ambulatory Orders Aspirin [Aspir 81] 81 mg PO DAILY 12/10/12 Cholecalciferol (Vitamin D3) [Vitamin D3] 2,000 unit PO ASDIR tablet 02/12/16 Simvastatin 40 mg PO HS 06/18/18 Triamterene/Hydrochlorothiazid [Triamterene-Hctz 37.5-25 mg Cp] 1 each PO DAILY 06/18/18 Levothyroxine [Synthroid -] 50 mcg PO DAILY@0700 06/29/18 Family Disease History - Family Disease History Family Disease History: CA: Mother (CRC 80), Other: Father () Review of Systems Findings/Remarks: Full review of systems obtained, as per HPI and otherwise negative Physical Exam Vital Signs: Vital Signs Temperature 36.5 C 07/20/18 13:18 Pulse Rate 68 07/20/18 14:45 Respiratory Rate 15 07/20/18 14:45 Blood Pressure 132/63 07/20/18 14:45 O2 Sat by Pulse Oximetry (%) 100 07/20/18 14:45 Constitutional: Yes: Well Nourished, No Distress, Calm Eyes: Yes: Conjunctiva Clear, EOM Intact, PERRL Cardiovascular: Yes: Regular Rate and Rhythm. No: Gallop, Murmur, Rub Respiratory: Yes: Regular, CTA Bilaterally, Other (chest tube in place with serosanguinous drainage). No: Rales, Rhonchi, Wheezes Gastrointestinal: Yes: Normal Bowel Sounds, Soft. No: Distention, Tenderness Extremities: Yes: WNL Edema: No Labs: CBC, BMP 07/20/18 07:52 07/20/18 07:56 Imaging - Results Chest X-ray: Report Reviewed Problem List - Problems (1) S/P thoracotomy Assessment/Plan: -CT surgery following -Chest tube in place -ICU monitoring (2) SVT (supraventricular tachycardia) Assessment/Plan: -resolved Code(s): I47.1 - SUPRAVENTRICULAR TACHYCARDIA (3) HTN (hypertension) Assessment/Plan: -continue toprol xl -continue triamterene HCTZ -continue imdur Code(s): I10 - ESSENTIAL (PRIMARY) HYPERTENSION (4) HLD (hyperlipidemia) Assessment/Plan: -continue statin Code(s): E78.5 - HYPERLIPIDEMIA, UNSPECIFIED (5) CAD (coronary artery disease) Assessment/Plan: -quiescent Code(s): I25.10 - ATHSCL HEART DISEASE OF [place] CORONARY ARTERY W/O ANG PCTRS (6) BPH (benign prostatic hyperplasia) Assessment/Plan: -continue proscar Code(s): N40.0 - BENIGN PROSTATIC HYPERPLASIA WITHOUT LOWER URINRY TRACT SYMP (7) Hypothyroid Assessment/Plan: -continue synthroid Code(s): E03.9 - HYPOTHYROIDISM, UNSPECIFIED
--- NOTE | 2018-07-20 15:21 | EKG ---
Test Reason : Blood Pressure : / mmHG Vent. Rate : 082 BPM Atrial Rate : 082 BPM P-R Int : 130 ms QRS Dur : 084 ms QT Int : 366 ms P-R-T Axes : 029 -47 027 degrees QTc Int : 427 ms SINUS RHYTHM WITH OCCASIONAL PREMATURE VENTRICULAR COMPLEXES LEFT AXIS DEVIATION INFERIOR INFARCT (CITED ON OR BEFORE 20-JUL-2018) ABNORMAL ECG WHEN COMPARED WITH ECG OF 20-JUL-2018 06:49, PREMATURE VENTRICULAR COMPLEXES ARE NOW PRESENT VENT. RATE HAS DECREASED BY 69 BPM Confirmed by ELOISE KIM MD ([id number]) on 07/20/2018 3:20:57 PM Referred By: Confirmed By:ELOISE KIM MD
[2018-07-20] MEDS ORDERED: oxyCODONE HCL 5 MG TABLET PO PRN (18:34)
[2018-07-20] MEDS: MORPHINE SULFATE 2 MG/ML VIAL IVPUSH PRN (18:52)
--- NOTE | 2018-07-20 18:55 | CONS ---
DATE OF CONSULTATION: 07/20/2018 PULMONARY CONSULTATION REFERRING PHYSICIAN: Rick Ross MD HISTORY OF PRESENT ILLNESS: The patient is an 82-year-old white male with a past medical history of ASHD status post bypass graft in 1999, status post stent in 2016, history of hip arthroplasty, BPH, history of prostate CA, history of melanoma on scalp status post removal, hypertension, hyperlipidemia, history of tobacco use quit in 1999, admitted to [facility] right VATS and pleural biopsy. Originally saw the patient in my office approximately 1 month ago. At the time , he was evaluated with complaints of shortness of breath. He had chest x-ray performed which revealed right pleural effusion, subsequently underwent a right thoracentesis and pleural fluid was consistent with exudate by T.P,albumin gradient and cholesterol criteria. Cytology was negative a. He underwent a PET scan and it showed a nodule implants in the right pleura region, right 8 distal pleural mass suv of 8.5 and a right lung lesion that is suv 12.6. Patient was referred to Dr. Ross for further evaluation. Patient underwent a right VATS with pleural biopsy and Pleurx placement earlier today and tolerated procedure well. Of note is prior to procedure had episode of SVT, for which he was transferred to the ER, and was given adenosine with conversion back to normal sinus rhythm. The patient has a history of tobacco use. No history of COPD or asthma in the past. 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 There is no recent history of travel. PAST MEDICAL HISTORY: Again includes ASHD status post coronary bypass graft, as well as stent, hypertension, hyperlipidemia, melanoma to scalp in November 2014, prostate CA. 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 MEDICATION: Prior to admission include metoprolol ER, Zocor, Altace, Proscar, aspirin, Imdur, levothyroxine, and triamterene. REVIEW OF SYSTEMS: Currently patient is in recovery room, groggy and drowsy, unable to obtain review of systems at this time. PHYSICAL EXAMINATION: GENERAL: The patient is a well-developed, well-nourished male, drowsy but in no acute distress. He is afebrile. VITAL SIGNS: Blood pressure 122/73, respiratory rate 17, O2 saturation is 100% . HEENT: Normocephalic, atraumatic. NECK: Supple. HEART: Regular S1, S2. CHEST: Clear. ABDOMEN: Soft, bowel sounds positive. EXTREMITIES: No cyanosis, edema. LABORATORY: WBC 9.5, hemoglobin 15, hematocrit 43.5 with platelet count of 294, 000. Chemistries: BUN 20, creatinine 1.3. Chest x-ray preoperative: Moderate right pleural effusion. IMPRESSION: 1. Right pleural effusion status post right video-assisted thoracoscopic surgery, pleural biopsy, Pleurx placement. 2. Likely metastatic bronchogenic carcinoma with avid nodules, pleural lesions. 3. Supraventricular tachycardia status post conversion with adenosine. 4. Arteriosclerotic heart disease status post stent. 5. History of prostate carcinoma. 6. History of melanoma status post resection. PLAN: Analgesics, O2, monitor heart rate, cardiac monitoring, incentive spirometer, and check final pathology. Further workup pending. ANGEL PABON M.D. [id number] MTDD
[2018-07-20] MEDS: LACTATED RINGERS SOLUTION 1,000 ML IV SCH (21:56)
[2018-07-20] MEDS: DOCUSATE SODIUM 100 MG CAPSULE (FP) PO SCH (21:56)
[2018-07-20] MEDS: HEPARIN NA (PORCINE) 5,000 UNITS/ML 1ML VIAL SQ SCH (21:56)
[2018-07-20] MEDS ORDERED: PATIENT'S OWN MEDICATION (NON-FORMULARY) (Simvastatin [Simvastatin] 40 MG) PO SCH (22:00)
[2018-07-20] MEDS ORDERED: ATORVASTATIN CA 20 MG TABLET (FP) PO SCH (22:00)
[2018-07-21] MEDS: MORPHINE SULFATE 2 MG/ML VIAL IVPUSH PRN
[2018-07-21] MEDS ORDERED: LEVOTHYROXINE NA 50 MCG TABLET (FP) PO SCH (07:00)
[2018-07-21] MEDS ORDERED: ISOSORBIDE MONONITRATE 30 MG TAB.SR.24H (FP) PO SCH (07:00)
[2018-07-21 07:05] LABS: BASO % 0.4 % (0-2.0); EOS % 2.4 % (0-4.5); HEMATOCRIT 40.5 % (35.4-49); HEMOGLOBIN 14.3 GM/dL (11.7-16.9); LYMPH % 8.3 % (8-40); MCH 32.1 pg (25.7-33.7); MCHC 35.3 g/dl (32.0-35.9); MEAN CELL VOLUME 91.1 fl (80-96); MEAN PLT VOLUME 6.9 fl (7.5-11.1); MONO % 7.9 % (3.8-10.2); PLATELET COUNT 258 K/MM3 (134-434); RBC 4.45 M/mm3 (4.00-5.60); RDW 13.9 % (11.9-15.9); WHITE BLOOD COUNT 8.7 K/mm3 (4.0-10.0)
[2018-07-21 07:34] LABS: ALBUMIN 2.8 g/dl (3.4-5.0); ALK PHOS 84 U/L (45-117); ANION GAP 6 MMOL/L (8-16); BILIRUBIN,TOTAL 0.7 mg/dL (0.2-1); BLOOD UREA NITROGEN 18 mg/dL (7-18); CALCIUM 8.4 mg/dL (8.5-10.1); CHLORIDE 100 mmol/L (98-107); CO2 31 mmol/L (21-32); CREATININE 1.3 mg/dL (0.55-1.3); GLUCOSE,RANDOM 114 mg/dL (74-106); POTASSIUM 4.6 mmol/L (3.5-5.1); SGOT/AST 11 U/L (15-37); SGPT/ALT 10 U/L (13-61); SODIUM 137 mmol/L (136-145); TOT PROT 5.8 g/dl (6.4-8.2)
--- NOTE | 2018-07-21 08:59 | SURG ---
Surgery Application Support Intern Note Application Support Intern: Joanne Lopez PA-C Date of Service: 07/21/18 Diagnosis: Right pleural effusion Procedure: Bronchoscopy right vats pleural and diaphragmatic pleura biopsy placement of pleur-x I was present for the entirety of the operative procedure. For further detail, please refer to operative report. Visit type - Case Type Case Type: Scheduled - Emergency Emergency Visit: No - New patient This patient is new to me today: Yes Date on this admission: 07/21/18
--- NOTE | 2018-07-21 09:20 | PN ---
Progress Note (short form) - Note Progress Note: Surgery POD #1 Bronchoscopy right vats pleural and diaphragmatic pleura biopsy placement of pleur-x, patient seen and examined at bedside with no new complaints. He has been OOB to the bathroom and tolerating his diet. His pain is controlled and he denies any Cp, N/V/D, fever or chills. Vital Signs Temp 97.7 F 07/21/18 06:00 Pulse 80 07/21/18 06:00 Resp 20 07/21/18 06:00 BP 127/66 07/21/18 06:00 Pulse Ox 97 07/21/18 05:00 Intake & Output 07/20/18 07/20/18 07/21/18 11:59 23:59 11:59 Intake Total 600 900 Output Total 480 250 Balance 120 650 Weight 172 lb Intake: IV 600 900 Lactated Ringers Solution 900 1,000 ml @ 75 mls/hr IV ASDIR SAVANNA Rx#:[id number] Output: Chest Tube Drainage 470 250 Right Lateral Chest 250 Urine 0 Estimated Blood Loss 10 Other: Voiding Method Toilet Toilet # Unmeasured Voids Void 3 Height 5 ft 5 in Body Mass Index (BMI) 28.6 Weight Measurement Method Est/Stated by Patient CBC, BMP 07/21/18 06:30 07/21/18 06:30 PE: A&Ox3, NAD, VSS Unlabored resp on 2L NC right chest pleur-x catheter site and surgical site dressings, C/D/I with surrounding tissue intact, no tracking erythema edema or ecchymosis. Pleur-X output 750cc post op. moving all extremities without limitation. Chest X-ray: progressive fluid c atelectasis or infiltrate in Right hemithorax, right chest tube and SQ air. No evidence of pneumothorax Problem List - Problems (1) Pleural effusion Assessment/Plan: POD #1 Bronchoscopy right vats pleural and diaphragmatic pleura biopsy placement of pleur-x doing well. 1) Cardiology recommendations for d/c appreciated 2) D/c planning with [facility]NS today if medicine agrees 3) OOb as tolerated 4) Encourage pulmonary toilet Evaluation and plan discussed with Dr Ross Code(s): J90 - PLEURAL EFFUSION, NOT ELSEWHERE CLASSIFIED
[2018-07-21] MEDS ORDERED: PATIENT'S OWN MEDICATION (NON-FORMULARY) (Ramipril [Ramipril] 10 MG) PO SCH (10:00)
[2018-07-21] MEDS ORDERED: FINASTERIDE 5 MG TABLET (FP) PO SCH (10:00)
[2018-07-21] MEDS ORDERED: RAMIPRIL 5 MG CAPSULE (FP) PO SCH (10:00)
[2018-07-21] MEDS ORDERED: TRIAMTERENE AND HCTZ - 37.5 MG/25 MG CAPSULE PO SCH (10:00)
[2018-07-21] MEDS ORDERED: metoPROLOL SUCCINATE 25 MG TAB.SR.24H (FP) PO SCH ×2 (10:00→22:00)
[2018-07-21] MEDS ORDERED: ASPIRIN COATED 81 MG TABLET.EC PO SCH (10:00)
[2018-07-21] MEDS: DOCUSATE SODIUM 100 MG CAPSULE (FP) PO SCH (10:26)
[2018-07-21] MEDS: HEPARIN NA (PORCINE) 5,000 UNITS/ML 1ML VIAL SQ SCH (10:26)
--- NOTE | 2018-07-21 11:00 | PN ---
Progress Note (short form) - Note Progress Note: s: no chest pain, palps, dizziness, dyspnea Current Medications Acetaminophen (Tylenol -) 650 mg PO Q4H PRN PRN Reason: PAIN LEVEL 4 - 6 Aspirin (Ecotrin -) 81 mg PO DAILY [facility] Last Admin: 07/21/18 10:26 Dose: 81 mg Atorvastatin Calcium (Lipitor -) 20 mg PO HS [facility] Last Admin: 07/20/18 21:57 Dose: Not Given Docusate Sodium (Colace -) 100 mg PO BID [facility] Last Admin: 07/21/18 10:26 Dose: 100 mg Finasteride (Proscar -) 5 mg PO DAILY [facility] Last Admin: 07/21/18 10:26 Dose: 5 mg Heparin Sodium (Porcine) (Heparin -) 5,000 unit SQ BID [facility] Last Admin: 07/21/18 10:26 Dose: 5,000 unit Lactated Ringer's (Lactated Ringers Solution) 1,000 mls @ 75 mls/hr IV ASDIR [facility] Last Admin: 07/20/18 21:56 Dose: 75 mls/hr Isosorbide Mononitrate (Imdur -) 30 mg PO AM [facility] Last Admin: 07/21/18 06:04 Dose: 30 mg Levothyroxine Sodium (Synthroid -) 50 mcg PO DAILY@0700 [facility] Last Admin: 07/21/18 06:04 Dose: 50 mcg Metoprolol Succinate (Toprol Xl -) 25 mg PO DAILY [facility] Last Admin: 07/21/18 10:26 Dose: 25 mg Morphine Sulfate (Morphine Sulfate) 1 mg IVPUSH Q4H PRN PRN Reason: PAIN LEVEL 6-10 Last Admin: 07/21/18 00:00 Dose: 1 mg Ondansetron HCl (Zofran Injection) 4 mg IVPUSH Q6H PRN PRN Reason: NAUSEA AND/OR VOMITING Oxycodone HCl (Roxicodone -) 5 mg PO Q4H PRN PRN Reason: PAIN LEVEL 4 - 6 Ramipril (Altace -) 10 mg PO DAILY [facility] Last Admin: 07/21/18 10:25 Dose: 10 mg Triamterene/HCTZ (Dyazide 25/37.5mg) 1 cap PO DAILY [facility] Last Admin: 07/21/18 10:26 Dose: 1 cap Vital Signs: Vital Signs Period Temp Pulse Resp BP Sys/Li Pulse Ox Last 24 Hr 97.4 F-98.6 F 64-82 14-22 105-142/49-74 97-100 Constitutional: Yes: Well Nourished, No Distress Eyes: No: Sclera Icterus HENT: No: Nasal Congestion Neck: No: Decreased ROM Respiratory: Yes: CTA Bilaterally, Diminished (R base). No: Accessory Muscle Use, Rales, Wheezes Gastrointestinal: Yes: Normal Bowel Sounds. No: Distention, Hepatomegaly, Palpable Mass, Tenderness Cardiovascular: Yes: Regular Rate and Rhythm JVD: No Carotid Bruit: No PMI: Non-Displaced Heart Sounds: Yes: S1, S2. No: Gallop Murmur: Yes: Systolic Murmur (soft early peaking JD lusb, s1/s2 soft intensity no split heard). No: Diastolic Murmur Musculoskeletal: Yes: Other (No kyphosis) Extremities: No: Cool, Cyanosis Edema: No Peripheral Pulses: 2+ Left Carotid, 2+ Right Carotid, 2+ Left Doralis Pedis, 2+ Right Dorsalis Pedis Integumentary: No: Jaundice Neurological: Yes: Alert, Oriented (x3) Psychiatric: No: Agitated Assessment/Plan ECG 07/20: SVT at 151 bpm (no p waves visible); old IWMI. ST depressions #2: NSR. old IWMI. no STs Echo 06/30 (): TDS. nl LVSF. nl RV. nl LA. mod-sev tele: sinus SVT - presented 06/30 with sx's of palps and dyspnea, aborted with adenosine (6mg x1) - on metoprolol 25 mg daily previous regimen--continued at that time - again on admission when came for lung biopsy - increase metoprolol succinate to 25 mg BID on discharge, prophylaxis for recurrent symptomatic SVT - stable for dc from cardiac perspective CAD s/p stent, CABG - rate related ST changes during SVT (no sx's)--resolved promptly on 2nd ecg when in sinus - no angina at home or during SVT here. troponin neg. - continue home aspirin, bb, statin, isosorbide aortic stenosis: -cath at [facility] 02/2017 with no significant -echo here 06/30 with moderate to severe . the prior echo images reviewed by Dr. Orozco with severe restriction of parasternal long axis images, however short axis images while TDS appear to show less than severe restriction of mobility (probably [id number] or moderate) and gradients are in moderate range. -repeat echo done by dr gomez 06/30 (verbal report from him) without significant -he has had preserved functional capacity WHICH IS STABLE FOR COUPLE OF YEARS NOW, i.e. prior to 02/2017 cath which showed no . hence he has no attributable sx's lung malignancy with pleural effusion, preop CV eval: - s/p bronch, VATS and pleurx placement - manage per surgery HLD - continue statin HTN - bp controlled - cont current meds
[2018-07-21] MEDS ORDERED: POLYETHYLENE GLYCOL 3350 119 GM BTL PO ONE (12:45)
[2018-07-21] MEDS ORDERED: TAMSULOSIN HCL 0.4 MG CAP PO ONE (12:45)
[2018-07-21] MEDS: LACTATED RINGERS SOLUTION 1,000 ML IV SCH (12:57)
[2018-07-21 15:19] VITALS: BP 109/54; PULSE 77; TEMP 98.1
--- NOTE | 2018-07-21 17:16 | DS ---
Physical Examination Vital Signs: Vital Signs Temperature 36.7 C 07/21/18 14:00 Pulse Rate 77 07/21/18 14:00 Respiratory Rate 18 07/21/18 14:00 Blood Pressure 109/54 L 07/21/18 14:00 O2 Sat by Pulse Oximetry (%) 97 07/21/18 13:00 Constitutional: Yes: Well Nourished, No Distress, Calm Cardiovascular: Yes: Regular Rate and Rhythm. No: Gallop, Murmur, Rub Respiratory: Yes: Regular, CTA Bilaterally. No: Rales, Rhonchi, Wheezes Gastrointestinal: Yes: Normal Bowel Sounds, Soft. No: Distention, Tenderness Extremities: Yes: WNL Edema: No Labs: CBC, BMP 07/21/18 06:30 07/21/18 06:30 Discharge Summary Reason For Visit: SUPRAVENTRICULAR TACHYCARDIA PLEURAL EFFUSION ON R Current Active Problems Aortic stenosis (Acute) BPH (benign prostatic hyperplasia) (Acute) CAD (coronary artery disease) (Acute) HLD (hyperlipidemia) (Acute) HTN (hypertension) (Acute) Hypothyroid (Acute) Pleural effusion (Acute) S/P thoracotomy (Acute) S/P thoracotomy (Acute) SVT (supraventricular tachycardia) (Acute) Hospital Course: 1) S/P thoracotomy (2) SVT (supraventricular tachycardia) Code(s): I47.1 - SUPRAVENTRICULAR TACHYCARDIA (3) HTN (hypertension) Code(s): I10 - ESSENTIAL (PRIMARY) HYPERTENSION (4) HLD (hyperlipidemia) Code(s): E78.5 - HYPERLIPIDEMIA, UNSPECIFIED (5) CAD (coronary artery disease) Code(s): I25.10 - ATHSCL HEART DISEASE OF [place] CORONARY ARTERY W/O ANG PCTRS (6) BPH (benign prostatic hyperplasia) Code(s): N40.0 - BENIGN PROSTATIC HYPERPLASIA WITHOUT LOWER URINRY TRACT SYMP (7) Hypothyroid Code(s): E03.9 - HYPOTHYROIDISM, UNSPECIFIED Mr Yen is a very pleasant 82 year old male who was admitted after thoracotomy. He was monitored on telemetry and did well. His pain was controlled with oxycodone. He was seen this morning and was noted to have urinary retention, he does not have a history of this and expect this is secondary to anesthesia. He was given flomax and this resolved. He was able to urinate without difficulty and was safe for discharge home. 32 minutes spent in preparation of this discharge Condition: Good - Instructions Diet, Activity, Other Instructions: Dr. Ross Discharge Instructions Dear ROXANN YEN, Post Operative Instructions Physical activity Resume your normal everyday activity as tolerated no heavy lifting or exercise until seen by your surgeon. You may walk unlimited amounts of and climb stairs. You may resume driving the car when you feel safe and comfortable behind the wheel and are no longer taking narcotic medication. Wound care Keep your pleur-x site clean and dry. Clean and drain bottles as instructed by your visiting nurse service. Drain Pleur-x @500cc every other day. Keep surgical and drain sites clean and dry. Your surgeon will advise you as to when you can shower. Diet There are no dietary restrictions. Eat healthy, high-fiber foods. Drink 6 to 8 glasses of liquid each day. This will assist in keeping your bowels are regular. Pain management You may take Tylenol or acetaminophen or Ibuprofen (for example, Motrin, Advil etc.) Any pain prescription medication ordered should be taken as prescribed for moderate to severe pain. Call Dr. Ross for any of the following: Severe pain not relieved by medication Fever of 101 or higher Excessive bleeding or drainage on dressing Inability to urinate If you experience any chest pain or shortness of breath please seek emergency treatment immediately. Follow up with your earth science technical officer as out patient. Call the office to confirm your post operative appointment. Referrals: Andrew Abdi MD [Primary Care Provider] - Rick Ross MD [Staff Physician] - Disposition: HOME - Home Medications Comprehensive Discharge Medication List: Ambulatory Orders Aspirin [Aspir 81] 81 mg PO DAILY 12/10/12 Cholecalciferol (Vitamin D3) [Vitamin D3] 2,000 unit PO ASDIR tablet 02/12/16 Simvastatin 40 mg PO HS 06/18/18 Triamterene/Hydrochlorothiazid [Triamterene-Hctz 37.5-25 mg Cp] 1 each PO DAILY 06/18/18 Levothyroxine [Synthroid -] 50 mcg PO DAILY@0700 06/29/18 Docusate Sodium [Colace -] 100 mg PO BID #60 capsule 07/21/18 Metoprolol Succinate [Toprol XL -] 25 mg PO DAILY #60 tab.sr.24h 07/21/18 oxyCODONE HCL [Roxicodone -] 5 mg PO Q4H PRN #14 tablet MDD 20mg 07/21/18
--- NOTE | 2018-07-27 10:25 | PATH ---
Surgical Pathology Report Patient Name: ROXANN PURDY [facility]. Rec. #: [id number] /Age/Gender: 1935 (Age: 82) / M Account: [id number] Location: 4 SO PEDS/ADOL Taken: 07/20/2018 Received: 07/20/2018 Reported: 07/27/2018 Physicians: Rick Ross M.D. Specimen(s) Received A: RIGHT DIAPHRAGM NODULE B: RIGHT DIAPHRAGM C: RIGHT PLEURAL TISSUE Clinical History Right diaphragm nodule Intraoperative Consult Diagnosis Right diaphragm nodule for frozen section: Lesional tissue. Defer to permanent sections for definitive classification and immunophenotypic workup. Kenneth Asencio M.D., 07/20/2018 Final Diagnosis A. DIAPHRAGM NODULE, RIGHT, BIOPSY (FS): ADENOCARCINOMA. SEE PART C. B. DIAPHRAGM TISSUE, RIGHT, BIOPSY: ADENOCARCINOMA. SEE PART C. C. PLEURAL TISSUE, RIGHT, BIOPSY: ADENOCARCINOMA, POORLY DIFFERENTIATED, COMPATIBLE WITH LUNG ORIGIN. SEE COMMENT. Comment: The tumor in parts A-C are morphologically similar, primarily differ in cellularity, and comprised of diffusely infiltrating malignant epithelial cells dispersed as clusters, cords and single cells in a desmoplastic background. Immunohistochemical stains performed and interpreted at [facility] (parts A & C) show the tumor is positive for AE1/3, and CK7, while negative for TTF-1. S100 shows non-specific staining. Additional Immunohistochemical stains performed at [place], [place] ([id number], part C) and interpreted at [facility] show the tumor is positive for GALLO, Cade-ep4 and MOC-31, while negative for Napsin A, WT-1, D2-40, calretinin, PSAP, DULCE MARIA-3, CK20, Melan-A, and SOX-10. NKX-3.1 shows weak focal non-specific staining .Although non-specific, this immunophenotype is compatible with a poorly differentiated adenocarcinoma of lung origin. However the possibility of upper GI and pancreaticobiliary tract cannot be completely excluded. Suggest clinical and radiologic correlation. History of melanoma and prostate carcinoma noted. See concurrent cytology ([id number]). Case seen in intradepartmental review with consensus in diagnosis. PDL-1 pending, results will be signed out as an addendum. Findings discussed with Dr. Ross. Electronically Signed Roya Castro M.D. Addendum Reported: 07/31/2018 Addendum Diagnosis PD-L1 performed and reported by [facility], [place], [place] shows the following: Marker Tumor Proportion Score Interpretation Description PD-L1 Lung (KEYTRUDA) >50% High Expression Programmed Ligand 1 (PD-L1), Clone 22C3 pharmDx(tm) kit for KEYTRUDA in lung cancer Reference Range: TPS = Tumor Proportion Score = % of at least 100 viable tumor cells showing complete or partial membrane staining at > 1+. TPS < 1% = No Expression. TPS 1 49% = Low Expression. Eligible for second-line treatment with KEYTRUDA (pembrolizumab). TPS > 50% = High Expression. Eligible for first or second-line treatment with KEYTRUDA (pembrolizumab). See [facility] report (Specimen #: [id number]) for additional details. Roya Castro M.D. Gross Description A. Received fresh labeled "right diaphragm nodule," is a 0.7 x 0.6 x 0.1 cm rojo-pink soft tissue fragment. The specimen is submitted in toto for frozen section. The frozen section residue is entirely submitted in one cassette. B. Received in formalin labeled "right diaphragm tissue," is a 0.4 cm in greatest dimension rojo soft tissue fragment. The specimen is submitted in toto in one cassette. C. Received in formalin labeled "right pleural tissue," is a 1.1 x 1.0 x 0.3 cm aggregate of rojo-yellow soft tissue fragments. The specimen is submitted in toto in one cassette. 07/20/2018 saudi07/20/2018
--- NOTE | 2018-08-03 11:07 | EKG ---
Test Reason : Blood Pressure : / mmHG Vent. Rate : 151 BPM Atrial Rate : 159 BPM P-R Int : 000 ms QRS Dur : 084 ms QT Int : 288 ms P-R-T Axes : 000 -51 049 degrees QTc Int : 456 ms SUPRAVENTRICULAR TACHYCARDIA LEFT AXIS DEVIATION INFERIOR INFARCT , AGE UNDETERMINED ABNORMAL ECG WHEN COMPARED WITH ECG OF 19-JUN-2018 09:30, PREMATURE VENTRICULAR COMPLEXES ARE NO LONGER PRESENT VENT. RATE HAS INCREASED BY 68 BPM Confirmed by ELOISE KIM MD ([id number]) on 07/20/2018 3:21:33 PM Also confirmed by ELOISE KIM MD ([id number]), dictionary editor MARIANA BERGER ([id number]) on 08/03/2018 11:07:15 AM Referred By: Mariana Ross Confirmed By:ELOISE KIM MD
== END 2018-07-21 17:35 | disposition home health service (06) | DRG 167 ==
LOC: JER 07:22 → JASUSAT 10:17 → JERBED 10:18 → J4S 16:18
PROVIDERS: ADMIT Internal Medicine; ATTEND Surgery
PROC: 0WH Anatomical Regions, General, Insertion (ICD-10-PCS; 2018-07-20)
PROC: 0W9940Z Drainage of Right Pleural Cavity with Drainage Device, Percutaneous Endoscopic Approach (ICD-10-PCS; principal; 2018-07-20 08:00)
PROC: 0BJ08ZZ Inspection of Tracheobronchial Tree, Via Natural or Artificial Opening Endoscopic (ICD-10-PCS; 2018-07-20 08:00)
DX: J90 Pleural effusion, not elsewhere classified (principal); J98.11 Atelectasis; I47.1 Supraventricular tachycardia; I35.0 Nonrheumatic aortic (valve) stenosis; Z95.1 Presence of aortocoronary bypass graft; I10 Essential (primary) hypertension; I25.10 Atherosclerotic heart disease of native coronary artery without angina pectoris; N40.0 Benign prostatic hyperplasia without lower urinary tract symptoms; I25.2 Old myocardial infarction; E03.9 Hypothyroidism, unspecified; E78.00 Pure hypercholesterolemia, unspecified; Z87.891 Personal history of nicotine dependence; Z96.643 Presence of artificial hip joint, bilateral; Z85.46 Personal history of malignant neoplasm of prostate
CPT/HCPCS: 36415; 71045-TC-FY; 80053; 84443; 84484; 85025; 86850; 86900; 86901; 88108; 88305-TC; 88331-TC; 88341-TC; 88342-TC; 93005; 93010; 94760; 99285-25; J1644

== ENCOUNTER 2018-11-26 10:52 | Emergency (ER) | payer OTHER, MEDICARE | END 2018-11-26 13:32 | disposition home or self-care (01) | LOC: FER 10:52 ==

== ENCOUNTER 2019-02-08 13:45 | Observation (INO) | payer OTHER, MEDICARE ==
[2019-02-08 13:52] VITALS: BMI 24.5
[2019-02-08] MEDS ORDERED: SODIUM CHLORIDE 0.9% 1000 ML INFUS.BAG IV ONE ×2 (14:18→17:01)
[2019-02-08 14:48] LABS: HEMATOCRIT 34.8 % (35.4-49); HEMOGLOBIN 11.8 GM/dl (11.7-16.9); MCH 31.5 pg (25.7-33.7); MCHC 34.1 g/dl (32.0-35.9); MEAN CELL VOLUME 92.4 fl (80-96); MEAN PLT VOLUME 7.4 fl (7.5-11.1); PLATELET COUNT 114 K/MM3 (134-434); RBC 3.76 M/mm3 (4.00-5.60); RDW 14.7 % (11.9-15.9); WHITE BLOOD COUNT 2.1 K/mm3 (4.0-10.8)
[2019-02-08 14:52] LABS: ALBUMIN 2.3 g/dl (3.4-5.0); BILIRUBIN,TOTAL 0.1 mg/dl (0.2-1); CALCIUM 8.2 mg/dl (8.5-10); CREATININE 1.3 mg/dl (0.55-1.3); POTASSIUM 4.4 mmol/L (3.5-5.1); TOT PROT 5.7 g/dl (6.4-8.2)
--- NOTE | 2019-02-08 15:52 | EKG ---
Test Reason : Blood Pressure : / mmHG Vent. Rate : 070 BPM Atrial Rate : 070 BPM P-R Int : 154 ms QRS Dur : 098 ms QT Int : 418 ms P-R-T Axes : 028 -52 -01 degrees QTc Int : 451 ms NORMAL SINUS RHYTHM LEFT AXIS DEVIATION ABNORMAL ECG WHEN COMPARED WITH ECG OF 20-JUL-2018 07:26, PREMATURE VENTRICULAR COMPLEXES ARE NO LONGER PRESENT T WAVE VARIATION Confirmed by JULIO DOWLING, ELOISE ([id number]) on 02/08/2019 3:52:12 PM Referred By: AGNES LUNDBERG Confirmed By:ELOISE KIM MD
--- NOTE | 2019-02-08 16:44 | PDOC ---
Documentation entered by Angeles Moreira SCRIBE, acting as scribe for Stanton Ahuja MD. Stanton Ahuja MD: This documentation has been prepared by the Harish pop Aiswarya, SCRIBE, under my direction and personally reviewed by me in its entirety. I confirm that the documentation accurately reflects all work, treatment, procedures, and medical decision making performed by me. History of Present Illness - General Chief Complaint: Lightheaded Stated Complaint: LIGHTHEADED,ACHY LEGS, ARMS,CHEST PAIN WHEN MOVING Time Seen by Provider: 02/08/19 13:56 - History of Present Illness Initial Comments: 02/08/19 14:45 The patient is a 83 year old male, with a significant PMH of melanoma scalp diagnosed 11/2014, CAD,SVT, HTN, HLD, and hypothyroidism, who presents to the emergency department with chest pain that began a few days ago. Patient states non radiating , intermittent chest pain is located to the left anterior chest wall that is exacerbated with movement. He state he endorses associated symptoms of generalized leg and arm weakness, lightheadedness, intermittent cough, nasal congestion and a fever of 101 at home. The patient denies shortness of breath, headache and dizziness.Denies fever, chills, nausea, vomit , diarrhea and constipation.Denies dysuria, frequency, urgency and hematuria. Allergies: sulfa Past surgical history: inguinal hernia repair, quintuple bypass 1999, stent done 2016, thoracentesis, and left hip replacement 2008 Social history: None reported PCP: Andrew Abdi Past History - Past Medical History Allergies/Adverse Reactions: Allergies Allergy/AdvReac Type Severity Reaction Status Date / Time Sulfa (Sulfonamide Allergy Verified 02/08/19 13:47 Antibiotics) sulfamethoxazole Allergy Verified 02/08/19 13:47 [From Bactrim] trimethoprim [From Bactrim] Allergy Verified 02/08/19 13:47 Home Medications: Ambulatory Orders Aspirin [Aspir 81] 81 mg PO DAILY 12/10/12 Cholecalciferol (Vitamin D3) [Vitamin D3] 2,000 unit PO DAILY tablet 02/12/16 Simvastatin 40 mg PO HS 06/18/18 Levothyroxine [Synthroid -] 50 mcg PO DAILY@0700 06/29/18 Dabrafenib Mesylate [Tafinlar] 100 mg PO BID 11/26/18 Metoprolol Succinate [Toprol XL -] 37.5 mg PO AM 11/26/18 Ramipril 5 mg PO DAILY 11/26/18 Trametinib Dimethyl Sulfoxide [Mekinist] 1.5 mg PO DAILY 11/26/18 Anemia: No Asthma: No 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) Cardiac Disorders: Yes (CAD; SVT) CVA: No COPD: No CHF: No Dementia: No Diabetes: No GI Disorders: No Disorders: No HTN: Yes Hypercholesterolemia: Yes (DX 1984) Liver Disease: No Seizures: No Thyroid Disease: Yes (HYPOTHYROIDISM) - Surgical History Abdominal Surgery: Yes (INGUINAL HERNIA REPAIR) Appendectomy: No Cardiac Surgery: Yes (QUINTUPLE BYPASS-1999; Stent (2016)) Cholecystectomy: No Lung Surgery: (thoracentesis) Neurologic Surgery: No Orthopedic Surgery: Yes (LEFT HIP REPLACEMENT-2008; righ hip replacement) - Immunization History Immunization Up to Date: Yes - Psycho Social/Smoking Cessation Hx Smoking History: Never smoked Years of Tobacco Use: 40 Have you smoked in the past 12 months: No Number of Cigarettes Smoked Daily: 25 If you are a former smoker, when did you quit?: 1999 Information on smoking cessation initiated: No Hx Alcohol Use: No Drug/Substance Use Hx: No Substance Use Type: None Hx Substance Use Treatment: No Cardiac Specific PMH - Complaint Specific PMHX Pacemaker: No Review of Systems - Review of Systems Able to Perform ROS?: Yes Comments:: 02/08/19 14:46 A complete review of 10 out of 10 review of systems is taken and is negative apart from what is previously mentioned below and in the HPI. *Physical Exam - Vital Signs Last Vital Signs Temp Pulse Resp BP Pulse Ox 98.9 F 67 18 137/60 100 02/08/19 17:19 02/08/19 17:19 02/08/19 17:19 02/08/19 17:19 02/08/19 17:19 - Physical Exam Comments: 02/08/19 14:46 Vitals: Triage Vital signs reviewed General Appearance: no acute distress, well nourished well developed, Chest Wall: Nontender Cardiac: Regular rate and rhythm, no murmurs, no rubs, no gallops, Lungs: Clear to auscultation bilateral, good air movement bilaterally, Rectal: Exam deferred Extremities: Full range of motion to all extremities, no cyanosis, clubbing, or edema Skin: Warm and dry, no rashes or lesions, no petechiae Neuro: AOX3; Cranial Nerves 2-12 grossly c intact, Strength intact to all extremities, Sensation intact to all extremities. Psych: normal mood, normal affect Heart Score/ECG Review - ECG Impressions Comment:: 02/08/19 17:26 EKG performed at 1356 demonstrates normal sinus rhythm left axis deviation no ST elevations isolated T wave inversion in lead III Interpreted by me ED Treatment Course - LABORATORY CBC & Chemistry Diagram: 02/08/19 14:09 02/08/19 14:09 - ADDITIONAL ORDERS Additional order review: Laboratory Results 02/08/19 02/08/19 02/08/19 16:12 14:30 14:09 Sodium Potassium Chloride Carbon Dioxide Anion Gap BUN Creatinine Est GFR (CKD-EPI)AfAm Est GFR (CKD-EPI)NonAf Random Glucose Lactic Acid 1.9 Calcium Total Bilirubin AST ALT Alkaline Phosphatase Troponin I < 0.03 Total Protein Albumin Urine Color Yellow Urine Appearance Clear Urine pH 5.5 D Urine Protein 1+ H Urine Glucose (UA) Negative Urine Ketones Negative Urine Blood Negative Urine Nitrite Negative Urine Bilirubin Negative Urine Urobilinogen 0.2 Ur Leukocyte Esterase Negative 02/08/19 14:09 Sodium 130 L Potassium 4.4 Chloride 98 Carbon Dioxide 25 Anion Gap 7 L BUN 27.0 H Creatinine 1.3 Est GFR (CKD-EPI)AfAm 58.89 Est GFR (CKD-EPI)NonAf 50.81 Random Glucose 160 H Lactic Acid Calcium 8.2 L Total Bilirubin 0.1 L AST 54 H ALT 23 Alkaline Phosphatase 102 Troponin I Total Protein 5.7 L Albumin 2.3 L Urine Color Urine Appearance Urine pH Urine Protein Urine Glucose (UA) Urine Ketones Urine Blood Urine Nitrite Urine Bilirubin Urine Urobilinogen Ur Leukocyte Esterase 02/08/19 14:09 RBC 3.76 L MCV 92.4 MCHC 34.1 RDW 14.7 MPV 7.4 L Neutrophils % No Result Required. Lymphocytes % No Result Required. - RADIOLOGY Radiology Studies Ordered: Category Date Time Status CXRPORT [CHEST X-RAY PORTABLE*] [RAD] Stat Radiology 02/08/19 13:59 Completed - Medications Given in the ED: ED Medications Discontinued Medications Generic Name Dose Route Start Last Admin Trade Name Freq PRN Reason Stop Dose Admin Sodium Chloride 1,000 ml 02/08/19 14:18 02/08/19 14:20 Normal Saline - IV 02/08/19 14:19 1,000 ml ONCE ONE Administration Sodium Chloride 1,000 ml 02/08/19 17:01 02/08/19 16:00 Normal Saline - IV 02/08/19 17:02 1,000 ml ONCE ONE Administration Medical Decision Making - Medical Decision Making 02/08/19 17:26 83 years old with episode of fever yesterday dizziness lightheadedness and intermittent chest pressure. EKG nonischemic troponin negative laboratory analysis notable for mild hyponatremia serum and urine osmolarity added on as well as urine lites Will observe overnight for ACS lightheadedness and hyponatremia Discharge - Discharge Information Problems reviewed: Yes Clinical Impression/Diagnosis: Hyponatremia Chest pain Qualifiers: Chest pain type: unspecified Qualified Code(s): R07.9 - Chest pain, unspecified Condition: Stable - Admission Yes - Follow up/Referral - Patient Discharge Instructions - Post Discharge Activity
[2019-02-08] MEDS ORDERED: SODIUM CHLORIDE 1,000 ML IV SCH (17:30)
--- NOTE | 2019-02-08 17:37 | HP ---
CHIEF COMPLAINT:worsening weakness, chest pain and fever PCP:Dr. Andrew Rivers Sanitation Tank Washer:Dr. Vincenzo Hurt Oncologist: Dr. Caraballo at [facility] HISTORY OF PRESENT ILLNESS: 83 year old male with a significant past medical history of scalp melanoma diagnosed 11/2014, coronary artery disease, prior CABG X4 in 1999 and stent in 2016,SVT, HTN, HLD,hypothyroidism and lung cancer on targeted therapy -on Mekinst and Tafinlar, follows with Dr. Caraballo at [facility] who presents to the emergency department with intermittent, nonradiating chest pain that began a few days ago and worse on positional changes. He reported generalized leg and arm weakness, lightheadedness, intermittent cough, nasal congestion and a fever of 101.2 at home this morning. He denied shortness of breath, headache,dizziness, syncopy, chills, nausea, vomit, diarrhea and constipation.Denies dysuria, frequency, urgency and hematuria. Upon workup in the ER he was found to have a sodium of 130, creatinine 1.3, WBC 2.1, platelets 113,000, hemoglobin 11.8 and hematocrit 34.8. He has a normal troponin. EKG- normal sinus rhythm ,no acute ischemia. UA and influenzae negative. SBP ranging in the 90's Recent Travel: denies PAST MEDICAL HISTORY: Scalp melanoma diagnosed 11/2014 Coronary artery disease prior CABG X4 in 1999 and stent in 2016 SVT HTN HLD Hypothyroidism Lung cancer PAST SURGICAL HISTORY: inguinal hernia repair, quintuple bypass 1999, stent done 2016, thoracentesis, and left hip replacement 2008 Social History: Smoking:denies Alcohol:denies Drugs: denies Allergies Sulfa (Sulfonamide Antibiotics) Allergy (Verified 02/08/19 13:47) sulfamethoxazole [From Bactrim] Allergy (Verified 02/08/19 13:47) trimethoprim [From Bactrim] Allergy (Verified 02/08/19 13:47) HOME MEDICATIONS: Home Medications Medication Instructions Recorded Aspirin [Aspir 81] 81 mg PO DAILY 12/10/12 Cholecalciferol (Vitamin D3) 2,000 unit PO DAILY tablet 02/12/16 [Vitamin D3] Simvastatin 40 mg PO HS 06/18/18 Levothyroxine [Synthroid -] 50 mcg PO DAILY@0700 06/29/18 Dabrafenib Mesylate [Tafinlar] 100 mg PO BID 11/26/18 Metoprolol Succinate [Toprol XL -] 37.5 mg PO AM 11/26/18 Ramipril 5 mg PO DAILY 11/26/18 Trametinib Dimethyl Sulfoxide 1.5 mg PO DAILY 11/26/18 [Mekinist] REVIEW OF SYSTEMS CONSTITUTIONAL: Absent: fever, chills, diaphoresis, generalized weakness, malaise, loss of appetite, weight change HEENT: Absent: rhinorrhea, nasal congestion, throat pain, throat swelling, difficulty swallowing, mouth swelling, ear pain, eye pain, visual changes CARDIOVASCULAR: Absent: chest pain, syncope, palpitations, irregular heart rate, lightheadedness , peripheral edema RESPIRATORY: Absent: cough, shortness of breath, dyspnea with exertion, orthopnea, wheezing, stridor, hemoptysis GASTROINTESTINAL: Absent: abdominal pain, abdominal distension, nausea, vomiting, diarrhea, constipation, melena, hematochezia GENITOURINARY: Absent: dysuria, frequency, urgency, hesitancy, hematuria, flank pain, genital pain MUSCULOSKELETAL: Absent: myalgia, arthralgia, joint swelling, back pain, neck pain SKIN: Absent: rash, itching, pallor HEMATOLOGIC/IMMUNOLOGIC: Absent: easy bleeding, easy bruising, lymphadenopathy, frequent infections ENDOCRINE: Absent: unexplained weight gain, unexplained weight loss, heat intolerance, cold intolerance NEUROLOGIC: Absent: headache, focal weakness or paresthesias, dizziness, unsteady gait, seizure, mental status changes, bladder or bowel incontinence PSYCHIATRIC: Absent: anxiety, depression, suicidal or homicidal ideation, hallucinations. PHYSICAL EXAMINATION Vital Signs - 24 hr 02/08/19 02/08/19 02/08/19 13:45 13:50 14:00 Temperature 98.3 F 99.2 F Pulse Rate 68 Pulse Rate [ 68 Left Apical] Respiratory 18 16 Rate Blood Pressure 107/56 L Blood Pressure 89/57 L [Right Arm] O2 Sat by Pulse 100 97 Oximetry (%) 02/08/19 02/08/19 02/08/19 15:13 16:34 17:00 Temperature 98.3 F 98.3 F Pulse Rate Pulse Rate [ 67 64 69 Left Apical] Respiratory 16 16 16 Rate Blood Pressure Blood Pressure 93/54 L 103/58 L 95/64 [Right Arm] O2 Sat by Pulse 100 97 99 Oximetry (%) 02/08/19 17:19 Temperature 98.9 F Pulse Rate 67 Pulse Rate [ Left Apical] Respiratory 18 Rate Blood Pressure 137/60 Blood Pressure [Right Arm] O2 Sat by Pulse 100 Oximetry (%) GENERAL: awake, alert, and fully oriented no acute distress HEAD: normal EYES: pupils equal, round and reactive to light EARS, NOSE, THROAT: ears normal, nares patent, oropharynx clear without exudates NECK: normal LUNGS: breath sounds equal and clear to auscultation bilaterally no rales no wheezing HEART: regular rate and rhythm normal S1 and S2 without murmur ABDOMEN: soft nontender not distended, normoactive bowel sounds, no guarding, no rebound, no masses MUSCULOSKELETAL: normal range of motion at all joints UPPER EXTREMITIES: 2+ pulses warm well-perfused LOWER EXTREMITIES: 2+ pulses warm, well-perfused no pitting edema NEUROLOGICAL: normal speech PSYCHIATRIC: cooperative good eye contact SKIN: warm dry no rashes or lesions noted normal capillary refill Laboratory Results - last 24 hr 02/08/19 02/08/19 02/08/19 14:09 14:09 14:09 WBC 2.1 L RBC 3.76 L Hgb 11.8 Hct 34.8 L MCV 92.4 MCH 31.5 MCHC 34.1 RDW 14.7 Plt Count 114 L D MPV 7.4 L Absolute Neuts (auto) 1.4 Neutrophils % No Result Required. Lymphocytes % No Result Required. Sodium 130 L Potassium 4.4 Chloride 98 Carbon Dioxide 25 Anion Gap 7 L BUN 27.0 H Creatinine 1.3 Est GFR (CKD-EPI)AfAm 58.89 Est GFR (CKD-EPI)NonAf 50.81 Random Glucose 160 H Lactic Acid Calcium 8.2 L Total Bilirubin 0.1 L AST 54 H ALT 23 Alkaline Phosphatase 102 Troponin I < 0.03 Total Protein 5.7 L Albumin 2.3 L Urine Color Urine Appearance Urine pH Urine Protein Urine Glucose (UA) Urine Ketones Urine Blood Urine Nitrite Urine Bilirubin Urine Urobilinogen Ur Leukocyte Esterase Influenza A (Rapid) Influenza B (Rapid) 02/08/19 02/08/19 02/08/19 14:30 14:30 16:12 WBC RBC Hgb Hct MCV MCH MCHC RDW Plt Count MPV Absolute Neuts (auto) Neutrophils % Lymphocytes % Sodium Potassium Chloride Carbon Dioxide Anion Gap BUN Creatinine Est GFR (CKD-EPI)AfAm Est GFR (CKD-EPI)NonAf Random Glucose Lactic Acid 1.9 Calcium Total Bilirubin AST ALT Alkaline Phosphatase Troponin I Total Protein Albumin Urine Color Yellow Urine Appearance Clear Urine pH 5.5 D Urine Protein 1+ H Urine Glucose (UA) Negative Urine Ketones Negative Urine Blood Negative Urine Nitrite Negative Urine Bilirubin Negative Urine Urobilinogen 0.2 Ur Leukocyte Esterase Negative Influenza A (Rapid) Negative Influenza B (Rapid) Negative ASSESSMENT/PLAN: In summary Mr. Yen is a 83 year old male with a significant past medical history of scalp melanoma diagnosed 11/2014, coronary artery disease, prior CABG X4 in 1999 and stent in 2017, SVT,hypertension,hyperlipidemia,hypothyroidism and lung cancer on Mekinst and Tafinlar, follows with Dr. Caraballo at [facility] with intermittent, nonradiating chest pain that began a few days ago and worse on positional changes associtaed with generalized leg and arm weakness, lightheadedness, intermittent cough, nasal congestion and a fever of 101.2 at home this morning. He denied shortness of breath, headache,dizziness , syncopy, chills, nausea, vomit, diarrhea and constipation.Denies dysuria, frequency, urgency and hematuria. He is being admitted to observation for hyponatremia and R/O SD. #1 Weakness likely secondary to Hyponatremia Continue with NS at 75cc/hr BMP in am Urine osmolarity pending #2 Atypical Chest Pain/History CAD/CABG and Stent now asymptomatic, first troponin normal, EKG -nsr w/ no acute ischemia Continue to trend troponins Continue with aspirin and statin therapy Hold ramipril, imdur and metoprolol in setting of SBP in the 90's Cardiology - Dr. Pyle consulted Check echocardiogram #3 Lung Cancer CBC abnormal w/ WBC 2.1, platelets 113,000 Continue with Mekinst Continue with Tafinlar #4 Fever ?Neutropenic Fever lactic acid, normal, WBC 2.1 urine and blood culture pending Continue to monitor #5 Hypothyroidism Check thyroid profile Continue with synthroid #6 Hypertension SBP 90's Hold ramipril, metoprolol and imdur Resume meds as above once blood pressure improves DVT Lovenox 40 mg once daily FEN IVF NS at 75c/hr low sodium diet repeat BMP in am, monitor electrolytes closely Visit type - Emergency Visit Emergency Visit: Yes ED Registration Date: 02/08/19 Care time: The patient presented to the Emergency Department on the above date and was hospitalized for further evaluation of their emergent condition. - New Patient This patient is new to me today: Yes Date on this admission: 02/08/19 - Critical Care Critical Care patient: No
[2019-02-08 17:55] LABS: CREATININE, URINE RANDOM 152.7 mg/dL
[2019-02-08] MEDS: ENOXAPARIN NA (PORCINE) 40 MG/0.4 ML DISP.SYRIN SQ SCH (18:18)
[2019-02-08 20:57] LABS: PLATELET ESTIMATE SLT DECREASE
[2019-02-08 20:57] LABS: CALCIUM OXALATE CRYSTALS FEW /hpf (NONE SEEN)
[2019-02-08] MEDS ORDERED: ATORVASTATIN CA 20 MG TABLET (FP) PO SCH (22:00)
[2019-02-09] MEDS ORDERED: LEVOTHYROXINE NA 50 MCG TABLET (FP) PO SCH (07:00)
[2019-02-09 08:17] LABS: CALCIUM 7.5 mg/dl (8.5-10); POTASSIUM 4.3 mmol/L (3.5-5.1)
[2019-02-09 08:30] LABS: HEMATOCRIT 32.1 % (35.4-49); HEMOGLOBIN 11.1 GM/dl (11.7-16.9); MCH 31.7 pg (25.7-33.7); MCHC 34.7 g/dl (32.0-35.9); MEAN CELL VOLUME 91.4 fl (80-96); MEAN PLT VOLUME 8.5 fl (7.5-11.1); PLATELET COUNT 101 K/MM3 (134-434); RBC 3.51 M/mm3 (4.00-5.60); RDW 14.9 % (11.9-15.9)
--- NOTE | 2019-02-09 08:44 | CON.CARD ---
Consult Consult Specialty:: cardiology Reason for Consultation:: chest pain; hx CABG - History of Present Illness History of Present Illness: The patient is an 83 year old male, with a significant PMH of lung CA, melanoma scalp diagnosed 11/2014, CAD, s/p CABG 1999 and coronary stent 2016,normal LVEF with moderately severe on 06/2018 ECHO, SVT, HTN, HLD, and hypothyroidism, who presents to the emergency department with chest pain that began a few days ago. Patient states non radiating , intermittent chest pain is located to the left anterior chest wall that is exacerbated with movement. He state he endorses associated symptoms of generalized leg and arm weakness, lightheadedness, intermittent cough, nasal congestion and a fever of 101 at home. The patient denies shortness of breath, headache and dizziness.Denies fever, chills, nausea, vomit, diarrhea and constipation.Denies dysuria, frequency, urgency and hematuria. Allergies: sulfa Past surgical history: inguinal hernia repair, quintuple bypass 1999, stent done 2016, thoracentesis, and left hip replacement 2008 Social history: None reported PCP: Andrew Abdi - History Source History Provided By: Patient, Medical Record - Past Medical History Cardio/Vascular: Yes: CAD, HTN, Hyperlipdemia, Other (Cardiac bypass) Pulmonary: Yes: Cancer (lung; melanoma) Endocrine: Yes: Hypothyroidism - Past Surgical History Past Surgical History: Yes: Bypass (cardiac quintriple 1999 left hip replacement 2008 hernia repair inguinal), Joint Replacement - Alcohol/Substance Use Hx Alcohol Use: No - Smoking History Smoking history: Never smoked Have you smoked in the past 12 months: No Aproximately how many cigarettes per day: 25 If you are a former smoker, when did you quit?: 1999 - Social History ADL: Independent Home Medications - Allergies Allergies/Adverse Reactions: Allergies Allergy/AdvReac Type Severity Reaction Status Date / Time Sulfa (Sulfonamide Allergy Verified 02/08/19 13:47 Antibiotics) sulfamethoxazole Allergy Verified 02/08/19 13:47 [From Bactrim] trimethoprim [From Bactrim] Allergy Verified 02/08/19 13:47 - Home Medications Home Medications: Ambulatory Orders Aspirin [Aspir 81] 81 mg PO DAILY 12/10/12 Cholecalciferol (Vitamin D3) [Vitamin D3] 2,000 unit PO DAILY tablet 02/12/16 Simvastatin 40 mg PO HS 06/18/18 Levothyroxine [Synthroid -] 50 mcg PO DAILY@0700 06/29/18 Dabrafenib Mesylate [Tafinlar] 100 mg PO BID 11/26/18 Metoprolol Succinate [Toprol XL -] 37.5 mg PO AM 11/26/18 Ramipril 5 mg PO DAILY 11/26/18 Trametinib Dimethyl Sulfoxide [Mekinist] 1.5 mg PO DAILY 11/26/18 Vital Signs: Vital Signs Temperature 98.5 F 02/09/19 05:00 Pulse Rate 79 02/09/19 05:00 Respiratory Rate 18 02/09/19 07:36 Blood Pressure 125/57 L 02/09/19 05:00 O2 Sat by Pulse Oximetry (%) 97 02/09/19 07:36 - Other Data Labs, Other Data: CBC, BMP 02/09/19 06:59 Troponin, BNP 02/08/19 02/08/19 02/09/19 14:09 16:14 04:00 Troponin I < 0.03 < 0.02 B-Natriuretic Peptide 2143.4 H Troponin, BNP 02/08/19 02/08/19 02/09/19 14:09 16:14 04:00 Troponin I < 0.03 < 0.02 B-Natriuretic Peptide 2143.4 H Problem List - Problems (1) Moderate to severe aortic stenosis Assessment/Plan: ECHO 06/2018: normal LVEF; moderately severe ; mild TR; no pericardial effusion. For ECHO today. Code(s): I35.0 - NONRHEUMATIC AORTIC (VALVE) STENOSIS (2) Lung cancer Assessment/Plan: PT says he is scheduled for brain MRI here in am. Marked leukopenia; SOB; weakness. F/u with oncologist (pt is anxious, says he already has an oncologist at [facility]). Code(s): C34.90 - MALIGNANT NEOPLASM OF UNSP PART OF UNSP BRONCHUS OR LUNG (3) Leukopenia Code(s): D72.819 - DECREASED WHITE BLOOD CELL COUNT, UNSPECIFIED (4) Atypical chest pain Assessment/Plan: Pt played tennis Friday; no chest pain then. He slept on his left side on Friday or Friday evening, and woke up with mild ( 2/10) sharp/achy pain left anterior chest wall that lasted a few seconds; it came back a few times throughout the day when he moved left arm/side. TNI 0.03-->0.02. EKG: NSR; LAD; no acute ST-T changes. 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 Vincenzo Hurt. Pt had CABG 1999, + stress MIBI 2016-->coronary stent at [facility]. Moderately severe Aortic stenosis. Pt has had lung CA diagnosed 06/2018, with pleural effusion requiring right thoracentesis; significant amount noted now on CXR.He has been having serial PET scans, and is on chemotherapy.Worsening leukopenia. Will manage chest pain conservatively at the moment. F/u ECHO today for LVEF,wall motion; state of , r/o pericardial effusion. Code(s): R07.89 - OTHER CHEST PAIN (5) Anxiety Code(s): F41.9 - ANXIETY DISORDER, UNSPECIFIED (6) Melanoma of scalp Code(s): C43.4 - MALIGNANT MELANOMA OF SCALP AND NECK (7) Pleural effusion, right Code(s): J90 - PLEURAL EFFUSION, NOT ELSEWHERE CLASSIFIED (9) SVT (supraventricular tachycardia) Code(s): I47.1 - SUPRAVENTRICULAR TACHYCARDIA
[2019-02-09 08:54] LABS: WHITE BLOOD COUNT 1.6 K/mm3 (4.0-10.8)
[2019-02-09] MEDS: ASPIRIN COATED 81 MG TABLET.EC PO SCH ×2 (09:16→10:25)
[2019-02-09] MEDS: ENOXAPARIN NA (PORCINE) 40 MG/0.4 ML DISP.SYRIN SQ SCH (09:16)
[2019-02-09] MEDS ORDERED: FINASTERIDE 5 MG TABLET (FP) PO SCH (10:00)
[2019-02-09] MEDS ORDERED: CHOLECALCIFEROL (VIT D3) 1,000 UNIT (25 MCG) TABLET PO SCH (10:00)
[2019-02-09] MEDS ORDERED: TRAMETINIB DIMETHYL SULFOXIDE PO SCH (10:00)
--- NOTE | 2019-02-09 10:12 | PN ---
Progress Note, Physician Chief Complaint: 24HR Events Seen by cardiology on the morning of 02/09 WBC dropped to 1.6 this morning. Patient reports speaking with his oncologist yesterday (02/08) and was told to hold Mekinist and Tafinlar due to decreasing WBCs. History of Present Illness: 83 year old male with a significant past medical history of scalp melanoma diagnosed 11/2014, coronary artery disease, prior CABG X4 in 1999 and stent in 2016,SVT, HTN, HLD,hypothyroidism and lung cancer on targeted therapy -on Mekinst and Tafinlar, follows with Dr. Caraballo at [facility] who presents to the emergency department with intermittent, nonradiating chest pain that began a few days ago and worse on positional changes. He reported generalized leg and arm weakness, lightheadedness, intermittent cough, nasal congestion and a fever of 101.2 at home this morning. He denied shortness of breath, headache,dizziness, syncopy, chills, nausea, vomit, diarrhea and constipation.Denies dysuria, frequency, urgency and hematuria. Upon workup in the ER he was found to have a sodium of 130, creatinine 1.3, WBC 2.1, platelets 113,000, hemoglobin 11.8 and hematocrit 34.8. He has a normal troponin. EKG- normal sinus rhythm ,no acute ischemia. UA and influenzae negative. SBP ranging in the 90's therefore ramipril, imdur and metoprolol placed on hold at time of admission - Current Medication List Current Medications: Active Medications Aspirin (Ecotrin -) 81 mg PO DAILY [facility] Last Admin: 02/09/19 09:16 Dose: 81 mg Atorvastatin Calcium (Lipitor -) 20 mg PO HS [facility] Last Admin: 02/08/19 21:11 Dose: 20 mg Cholecalciferol (Vitamin D3 -) 2,000 unit PO DAILY [facility] Last Admin: 02/09/19 09:16 Dose: 2,000 unit Enoxaparin Sodium (Lovenox -) 40 mg SQ DAILY [facility] Last Admin: 02/09/19 09:16 Dose: 40 mg Finasteride (Proscar -) 5 mg PO DAILY [facility] Last Admin: 02/09/19 09:16 Dose: 5 mg Sodium Chloride (Normal Saline -) 1,000 mls @ 75 mls/hr IV ASDIR [facility] Last Admin: 02/08/19 18:18 Dose: 75 mls/hr Isosorbide Mononitrate (Imdur -) 30 mg PO DAILY [facility] Levothyroxine Sodium (Synthroid -) 50 mcg PO DAILY@0700 [facility] Last Admin: 02/09/19 08:19 Dose: Not Given Metoprolol Succinate (Toprol Xl -) 37.5 mg PO DAILY [facility] - Objective Vital Signs: Vital Signs Temperature 98.1 F 02/09/19 09:57 Pulse Rate 78 02/09/19 09:57 Respiratory Rate 20 02/09/19 09:57 Blood Pressure 121/56 L 02/09/19 09:57 O2 Sat by Pulse Oximetry (%) 97 02/09/19 07:36 Constitutional: Yes: Cachectic, Thin Eyes: Yes: PERRL, Ptosis, Other (conjunctiva w/ erythema) HENT: Yes: Atraumatic, Normocephalic Neck: Yes: Supple Cardiovascular: Yes: Regular Rate and Rhythm, Murmur (systolic murmur) Respiratory: Yes: Regular, Other (rhonchi/rales b/l lower lung herrera) Gastrointestinal: Yes: Soft, Hyperactive Bowel Sounds ...Rectal Exam: Yes: Deferred Genitourinary: Yes: Other (voids freely) Musculoskeletal: Yes: Muscle Weakness Extremities: Yes: WNL Edema: Yes Edema: LLE: Trace Peripheral Pulses WNL: Yes Peripheral Pulses: Left Radial: 2+, Right Radial: 2+, Left Doralis Pedis: 2+, Right Dorsalis Pedis: 2+ Neurological: Yes: Alert, Oriented ...Motor Strength: WNL Psychiatric: Yes: Alert, Oriented Labs: CBC, BMP 02/09/19 06:59 02/09/19 06:59 - ....Imaging Chest X-ray: Report Reviewed (CXR 02/08/2019 Comparison studies: 09/17/2018 Normal heart size, median sternotomy wires and CABG clips in place with normal aeration left lung. Normal aeration right upper lobe. Interval improvement with interval decrease in right pleural effusion. Persistent blunting right costophrenic angle, residual right pleural effusion suspected. CT scan correlation recommended Impression: Persistence of right pleural effusion suspected, CT scan correlation recommended. Reported By: Franc Early MD 1600) Problem List - Problems (1) Prophylactic measure Assessment/Plan: SCDs SC lovenox 40mg once daily OOB to chair Ambulate as tolerated start colace BID Code(s): Z29.9 - ENCOUNTER FOR PROPHYLACTIC MEASURES, UNSPECIFIED (2) Leukopenia Assessment/Plan: trend WBCs trend temp curve heme-onc consult placed follow up blood and urine cultures neutropenic precautions Problems reviewed: Yes Code(s): D72.819 - DECREASED WHITE BLOOD CELL COUNT, UNSPECIFIED Qualifiers: Neutropenia type: secondary to cancer chemotherapy (3) Lung cancer Assessment/Plan: hold Mekinist and Tafinlar PRN O2 NC Problems reviewed: Yes Code(s): C34.90 - MALIGNANT NEOPLASM OF UNSP PART OF UNSP BRONCHUS OR LUNG (4) Moderate to severe aortic stenosis Assessment/Plan: echo pending to reassess valve function cardiology following Code(s): I35.0 - NONRHEUMATIC AORTIC (VALVE) STENOSIS (5) BPH (benign prostatic hyperplasia) Assessment/Plan: continue proscar monitor urine output, observe for retention Problems reviewed: Yes Code(s): N40.0 - BENIGN PROSTATIC HYPERPLASIA WITHOUT LOWER URINRY TRACT SYMP (6) CAD (coronary artery disease) Assessment/Plan: continue ASA/ statin restart Imdur and BB hold ramipril as BP well controlled continuous tele monitoring serial EKGs cardiac enzymes if pt c/o chest pain/dyspnea Problems reviewed: Yes Code(s): I25.10 - ATHSCL HEART DISEASE OF [place] CORONARY ARTERY W/O ANG PCTRS (7) HLD (hyperlipidemia) Assessment/Plan: ASA 81mg lipitor 20mg qhs cardiac -neutropenic diet Problems reviewed: Yes Code(s): E78.5 - HYPERLIPIDEMIA, UNSPECIFIED (8) HTN (hypertension) Assessment/Plan: norvasc at bedtime Toprol XL 37.5mg qam holding ACEi Code(s): I10 - ESSENTIAL (PRIMARY) HYPERTENSION (9) Hypothyroid Assessment/Plan: synthroid 50mcg qam TSH elevated, T4 Free to be sent with AM labs Code(s): E03.9 - HYPOTHYROIDISM, UNSPECIFIED (10) Pleural effusion, right Assessment/Plan: serial CXRs will hold off on CT scan, since pt is due for PET scan with oncologist and can perform if discharged within the next 48hrs O2 via NC as needed d/c IVF, encourage PO intake BNP with AM labs Code(s): J90 - PLEURAL EFFUSION, NOT ELSEWHERE CLASSIFIED Impression/Plan Impression/Plan: Code status: Full code TIME SPENT: 45min Visit type - Emergency Visit Emergency Visit: Yes ED Registration Date: 02/08/19 Care time: The patient presented to the Emergency Department on the above date and was hospitalized for further evaluation of their emergent condition. - New Patient This patient is new to me today: Yes Date on this admission: 02/09/19 - Critical Care Critical Care patient: No - Discharge Referral Referred to [facility] Med P.C.: No
[2019-02-09] MEDS: DABRAFENIB MESYLATE PO SCH (10:25)
[2019-02-09] MEDS ORDERED: DOCUSATE SODIUM 100 MG CAPSULE (FP) PO SCH ×2 (10:53→22:00)
--- NOTE | 2019-02-09 11:07 | EKG ---
Test Reason : Blood Pressure : / mmHG Vent. Rate : 073 BPM Atrial Rate : 073 BPM P-R Int : 158 ms QRS Dur : 098 ms QT Int : 384 ms P-R-T Axes : 021 -47 017 degrees QTc Int : 423 ms SINUS RHYTHM WITH OCCASIONAL PREMATURE VENTRICULAR COMPLEXES LEFT AXIS DEVIATION ABNORMAL ECG WHEN COMPARED WITH ECG OF 08-FEB-2019 13:56, PREMATURE VENTRICULAR COMPLEXES ARE NOW PRESENT Confirmed by Nito Dai MD ([id number]) on 02/09/2019 11:06:39 AM Referred By: TOYA Confirmed By:Nito Dai MD
[2019-02-09] MEDS ORDERED: metoPROLOL SUCCINATE 25 MG TAB.SR.24H (FP) PO SCH ×3 (12:00→22:00)
[2019-02-09] MEDS ORDERED: ISOSORBIDE MONONITRATE 30 MG TAB.SR.24H (FP) PO SCH (12:00)
[2019-02-09 14:12] VITALS: BP 113/42; PULSE 75; TEMP 97.9
--- NOTE | 2019-02-09 15:40 | ECHO ---
Version: 1 Name: ROXANN PURDY Exam: Adult Echocardiogram Study Date: 02/09/2019, 2:00 PM Age: 83 Years MMode/2D Measurements & Calculations IVSd: 0.91 cm LVIDs: 3.7 cm LVIDd: 4.8 cm LVPWd: 0.93 cm LVOT diam: 1.99 cm Ao root diam: 2.9 cm LA dimension: 3.5 cm Doppler Measurements & Calculations MV E max christa: 86.1 cm/sec MV A max christa: 82.8 cm/sec MV E/A: 1.04 MR max P.8 mmHg Ao max P.8 mmHg SURENDRA(I,D): 0.68 cm Ao mean P.3 mmHg LV V1 mean: 47.7 cm/sec Ao V2 max: 286.5 cm/sec LV V1 mean P.02 mmHg TR max christa: 270.5 cm/sec TR max P.5 mmHg Left Ventricle Normal LV size with mild LV dysfunction. EF 47%. Abnormal diastolic relaxation. Right Ventricle The right ventricle is normal in size and function. Atria Mild left atrial enlargement. Right atrial size is normal. Mitral Valve The mitral valve is normal. Mild to moderate MR. Tricuspid Valve The tricuspid valve is normal. Mild to moderate TR, PASP 38 mmHG. Aortic Valve Calicified aortic valve with moderate aortic stenosis. SURENDRA 0.75 cm2, Peak Gradient 33 mmHg, Mean 21 mmHg. Pulmonic Valve The pulmonic valve is not well visualized. Great Vessels The aortic root is normal size. Pericardium/Pleura There is no pericardial effusion. Summary Statements Normal LV size with mild LV dysfunction. EF 47% Abnormal diastolic relaxation The right ventricle is normal in size and function. Mild left atrial enlargement Right atrial size is normal. Mild to moderate MR Mild to moderate TR, PASP 38 mmHG SURENDRA 0.75 cm2, Peak Gradient 33 mmHg, Mean 21 mmHg Calicified aortic valve with moderate aortic stenosis. The aortic root is normal size. There is no pericardial effusion. MD Rick Arcos 02/09/2019, 2:39 PM Ordering Physician: Amalia Lloyd Performed By: Diane Vallejo
[2019-02-09] MEDS ORDERED: ASPIRIN COATED 81 MG TABLET.EC PO SCH (22:00)
--- NOTE | 2019-02-10 09:15 | PN ---
Progress Note, Physician History of Present Illness: 83 year old M with H/O scalp melanoma diagnosed 11/2014, CAD s/p CABG X4 in 1999 and stent in 2016,SVT, HTN, HLD,hypothyroidism and lung cancer on targeted therapy -on Mekinst and Tafinlar, follows with Dr. Caraballo at [facility] admitted with intermittent, non-radiating chest pain that began a few days ago and worse on positional changes. He reported generalized leg and arm weakness, lightheadedness, intermittent cough, nasal congestion, t amx 101.2 at home - Current Medication List Current Medications: Active Medications Aspirin (Ecotrin -) 81 mg PO HS [facility] Atorvastatin Calcium (Lipitor -) 20 mg PO HS [facility] Last Admin: 02/08/19 21:11 Dose: 20 mg Cholecalciferol (Vitamin D3 -) 2,000 unit PO DAILY [facility] Last Admin: 02/09/19 09:16 Dose: 2,000 unit Docusate Sodium (Colace -) 100 mg PO BID [facility] Enoxaparin Sodium (Lovenox -) 40 mg SQ DAILY [facility] Last Admin: 02/09/19 09:16 Dose: 40 mg Finasteride (Proscar -) 5 mg PO DAILY [facility] Last Admin: 02/09/19 09:16 Dose: 5 mg Isosorbide Mononitrate (Imdur -) 30 mg PO DAILY@1200 [facility] Last Admin: 02/09/19 11:20 Dose: 30 mg Levothyroxine Sodium (Synthroid -) 50 mcg PO DAILY@0700 [facility] Last Admin: 02/09/19 08:19 Dose: Not Given Metoprolol Succinate (Toprol Xl -) 25 mg PO DAILY@1200 [facility] Last Admin: 02/09/19 11:20 Dose: 25 mg Metoprolol Succinate (Toprol Xl -) 12.5 mg PO DAILY@2200 [facility] - Objective Vital Signs: Vital Signs Temperature 97.9 F 02/09/19 14:10 Pulse Rate 75 02/09/19 14:10 Respiratory Rate 18 02/09/19 17:00 Blood Pressure 113/42 L 02/09/19 14:10 O2 Sat by Pulse Oximetry (%) 94 L 02/09/19 17:00 Elderly M remained stable not in distress HEENT: Mm moist, mild anemia NECK: No JVd No Bruit CHEST: CTA B/L CVS: S1S2 R ABDL No distention, non tender EXT: No ninfa afeet YARN WRAPPER: AOX3 non focal Labs: CBC, BMP 02/09/19 06:59 02/09/19 06:59 - ....Imaging Chest X-ray: Report Reviewed (Rt sided effusion) Other: Report Reviewed (ECHO EF 47 % Diastolic dysfunction, Modertae ) Problem List - Problems (1) Atypical chest pain Code(s): R07.89 - OTHER CHEST PAIN (2) Moderate to severe aortic stenosis Code(s): I35.0 - NONRHEUMATIC AORTIC (VALVE) STENOSIS (3) Lung cancer Code(s): C34.90 - MALIGNANT NEOPLASM OF UNSP PART OF UNSP BRONCHUS OR LUNG (4) Leukopenia Code(s): D72.819 - DECREASED WHITE BLOOD CELL COUNT, UNSPECIFIED Qualifiers: Neutropenia type: secondary to cancer chemotherapy Qualified Code(s): D70.1 - Agranulocytosis secondary to cancer chemotherapy; T45.1X5A - Adverse effect of antineoplastic and immunosuppressive drugs, initial encounter (5) CAD (coronary artery disease) Code(s): I25.10 - ATHSCL HEART DISEASE OF [place] CORONARY ARTERY W/O ANG PCTRS (6) HLD (hyperlipidemia) Code(s): E78.5 - HYPERLIPIDEMIA, UNSPECIFIED (7) Prophylactic measure Code(s): Z29.9 - ENCOUNTER FOR PROPHYLACTIC MEASURES, UNSPECIFIED (8) HTN (hypertension) Code(s): I10 - ESSENTIAL (PRIMARY) HYPERTENSION (9) Pleural effusion Code(s): J90 - PLEURAL EFFUSION, NOT ELSEWHERE CLASSIFIED Assessment/Plan signed AMA last night
--- NOTE | 2019-02-10 09:48 | PN ---
Progress Note, Physician History of Present Illness: The patient is an 83 year old male, with a significant PMH of lung CA, melanoma scalp diagnosed 11/2014, CAD, s/p CABG 1999 and coronary stent 2016,normal LVEF with moderately severe on 06/2018 ECHO, SVT, HTN, HLD, and hypothyroidism, who presents to the emergency department with chest pain that began a few days ago. Patient states non radiating , intermittent chest pain is located to the left anterior chest wall that is exacerbated with movement. He state he endorses associated symptoms of generalized leg and arm weakness, lightheadedness, intermittent cough, nasal congestion and a fever of 101 at home. The patient denies shortness of breath, headache and dizziness.Denies fever, chills, nausea, vomit, diarrhea and constipation.Denies dysuria, frequency, urgency and hematuria. Allergies: sulfa Past surgical history: inguinal hernia repair, quintuple bypass 1999, stent done 2016, thoracentesis, and left hip replacement 2008 Social history: None reported PCP: Andrew Abdi - Current Medication List Current Medications: Active Medications Aspirin (Ecotrin -) 81 mg PO HS [facility] Atorvastatin Calcium (Lipitor -) 20 mg PO [facility] Last Admin: 02/08/19 21:11 Dose: 20 mg Cholecalciferol (Vitamin D3 -) 2,000 unit PO DAILY [facility] Last Admin: 02/09/19 09:16 Dose: 2,000 unit Docusate Sodium (Colace -) 100 mg PO BID [facility] Enoxaparin Sodium (Lovenox -) 40 mg SQ DAILY [facility] Last Admin: 02/09/19 09:16 Dose: 40 mg Finasteride (Proscar -) 5 mg PO DAILY [facility] Last Admin: 02/09/19 09:16 Dose: 5 mg Isosorbide Mononitrate (Imdur -) 30 mg PO DAILY@1200 [facility] Last Admin: 02/09/19 11:20 Dose: 30 mg Levothyroxine Sodium (Synthroid -) 50 mcg PO DAILY@0700 [facility] Last Admin: 02/09/19 08:19 Dose: Not Given Metoprolol Succinate (Toprol Xl -) 25 mg PO DAILY@1200 [facility] Last Admin: 02/09/19 11:20 Dose: 25 mg Metoprolol Succinate (Toprol Xl -) 12.5 mg PO DAILY@2200 [facility] - Objective Vital Signs: Vital Signs Temperature 97.9 F 02/09/19 14:10 Pulse Rate 75 02/09/19 14:10 Respiratory Rate 18 02/09/19 17:00 Blood Pressure 113/42 L 02/09/19 14:10 O2 Sat by Pulse Oximetry (%) 94 L 02/09/19 17:00 Eyes: Yes: WNL, Conjunctiva Clear, EOM Intact HENT: Yes: WNL, Atraumatic, Normocephalic Neck: Yes: WNL, Supple, Trachea Midline Cardiovascular: Yes: WNL, Regular Rate and Rhythm Respiratory: Yes: Diminished Gastrointestinal: Yes: WNL, Normal Bowel Sounds Genitourinary: Yes: WNL Musculoskeletal: Yes: WNL Extremities: Yes: WNL Edema: No Integumentary: Yes: WNL Neurological: Yes: WNL, Alert, Oriented ...Motor Strength: WNL Psychiatric: Yes: WNL Labs: CBC, BMP 02/09/19 06:59 02/09/19 06:59 Assessment/Plan - Problems (1) Moderate to severe aortic stenosis Assessment/Plan: ECHO 06/2018: normal LVEF; moderately severe ; mild TR; no pericardial effusion. For ECHO today. Code(s): I35.0 - NONRHEUMATIC AORTIC (VALVE) STENOSIS (2) Lung cancer Assessment/Plan: PT says he is scheduled for brain MRI here in am. Marked leukopenia; SOB; weakness. F/u with oncologist (pt is anxious, says he already has an oncologist at [facility]). Code(s): C34.90 - MALIGNANT NEOPLASM OF UNSP PART OF UNSP BRONCHUS OR LUNG (3) Leukopenia Code(s): D72.819 - DECREASED WHITE BLOOD CELL COUNT, UNSPECIFIED (4) Atypical chest pain Assessment/Plan: Pt played tennis Friday; no chest pain then. He slept on his left side on Friday or Friday evening, and woke up with mild ( 2/10) sharp/achy pain left anterior chest wall that lasted a few seconds; it came back a few times throughout the day when he moved left arm/side. TNI 0.03-->0.02. EKG: NSR; LAD; no acute ST-T changes. 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 Vincenzo Hurt. Pt had CABG 1999, + stress MIBI 2016-->coronary stent at [facility]. Moderately severe Aortic stenosis. Pt has had lung CA diagnosed 06/2018, with pleural effusion requiring right thoracentesis; significant amount noted now on CXR.He has been having serial PET scans, and is on chemotherapy.Worsening leukopenia. Will manage chest pain conservatively at the moment. F/u ECHO today for LVEF,wall motion; state of , r/o pericardial effusion. Code(s): R07.89 - OTHER CHEST PAIN (5) Anxiety Code(s): F41.9 - ANXIETY DISORDER, UNSPECIFIED (6) Melanoma of scalp Code(s): C43.4 - MALIGNANT MELANOMA OF SCALP AND NECK (7) Pleural effusion, right Code(s): J90 - PLEURAL EFFUSION, NOT ELSEWHERE CLASSIFIED (9) SVT (supraventricular tachycardia) Code(s): I47.1 - SUPRAVENTRICULAR TACHYCARDIA
--- NOTE | 2019-02-10 09:49 | DS ---
Physical Examination Vital Signs: Vital Signs Temperature 97.9 F 02/09/19 14:10 Pulse Rate 75 02/09/19 14:10 Respiratory Rate 18 02/09/19 17:00 Blood Pressure 113/42 L 02/09/19 14:10 O2 Sat by Pulse Oximetry (%) 94 L 02/09/19 17:00 Elderly M remained stable not in distress HEENT: Mm moist, mild anemia NECK: No JVd No Bruit CHEST: CTA B/L CVS: S1S2 R ABD: No distention, non tender EXT: No edema feet GLOBAL COORDINATOR: AOX3 non focal Labs: CBC, BMP 02/09/19 06:59 02/09/19 06:59 Discharge Summary Problems reviewed: Yes Reason For Visit: CHEST PAIN-HTN Current Active Problems Anxiety (Acute) Atypical chest pain (Acute) Leukopenia (Acute) Lung cancer (Acute) Moderate to severe aortic stenosis (Acute) Prophylactic measure (Acute) Hospital Course: 83 year old M with H/O scalp melanoma diagnosed 11/2014, CAD s/p CABG X4 in 1999 and stent in 2016,SVT, HTN, HLD,hypothyroidism and lung cancer on targeted therapy -on Mekinst and Tafinlar, follows with Dr. Caraballo at [facility] admitted with intermittent, non-radiating chest pain that began a few days ago and worse on positional changes. He reported generalized leg and arm weakness, lightheadedness, intermittent cough, nasal congestion, t amx 101.2 at home , while recovering patient signed AMA Condition: Stable - Instructions Diet, Activity, Other Instructions: Low Salt low Cholstrol Referrals: Andrew Abdi MD [Primary Care Provider] - Disposition: AGAINST MEDICAL ADVICE - Home Medications Comprehensive Discharge Medication List: Ambulatory Orders Aspirin [Aspir 81] 81 mg PO DAILY 12/10/12 Cholecalciferol (Vitamin D3) [Vitamin D3] 2,000 unit PO DAILY tablet 02/12/16 Simvastatin 40 mg PO HS 06/18/18 Levothyroxine [Synthroid -] 50 mcg PO DAILY@0700 06/29/18 Dabrafenib Mesylate [Tafinlar] 100 mg PO BID 11/26/18 Metoprolol Succinate [Toprol XL -] 37.5 mg PO AM 11/26/18 Ramipril 5 mg PO DAILY 11/26/18 Trametinib Dimethyl Sulfoxide [Mekinist] 1.5 mg PO DAILY 11/26/18
== END 2019-02-09 19:15 | disposition left against medical advice (07) ==
LOC: FER 13:45 → FM/S 16:56
PROVIDERS: ATTEND Internal Medicine
PROC: 3E013GC Introduction of Other Therapeutic Substance into Subcutaneous Tissue, Percutaneous Approach (ICD-10-PCS; principal; 2019-02-08)
PROC: 3E0337Z Introduction of Electrolytic and Water Balance Substance into Peripheral Vein, Percutaneous Approach (ICD-10-PCS; 2019-02-08)
DX: E87.1 Hypo-osmolality and hyponatremia (principal); R07.89 Other chest pain; I10 Essential (primary) hypertension; E78.5 Hyperlipidemia, unspecified; E03.9 Hypothyroidism, unspecified; I25.10 Atherosclerotic heart disease of native coronary artery without angina pectoris; E53.1 Pyridoxine deficiency; D50.9 Iron deficiency anemia, unspecified; I35.0 Nonrheumatic aortic (valve) stenosis; D72.819 Decreased white blood cell count, unspecified; J90 Pleural effusion, not elsewhere classified; F41.9 Anxiety disorder, unspecified; I47.1 Supraventricular tachycardia; N40.0 Benign prostatic hyperplasia without lower urinary tract symptoms; C34.90 Malignant neoplasm of unspecified part of unspecified bronchus or lung; Z95.1 Presence of aortocoronary bypass graft; Z95.5 Presence of coronary angioplasty implant and graft; Z96.643 Presence of artificial hip joint, bilateral; Z79.82 Long term (current) use of aspirin; Z88.1 Allergy status to other antibiotic agents; Z85.820 Personal history of malignant melanoma of skin; Z29.8 Encounter for other specified prophylactic measures
CPT/HCPCS: 36415; 71045-TC-FY; 80048; 80053; 81003; 81015; 82565; 83605; 83880; 83930; 83935; 84300; 84436; 84443; 84479; 84484; 85025; 85027; 87040; 87086; 87804; 93005; 93306-TC; 96372; 99284-25; G0378; J7030

== ENCOUNTER 2019-06-08 14:13 | Inpatient (IN) | payer OTHER, MEDICARE ==
[2019-06-08 14:46] VITALS: BMI 25.7
[2019-06-08 15:47] LABS: BASO % 0.4 % (0-2.0); EOS % 0.5 % (0-4.5); HEMATOCRIT 20.6 % (35.4-49); LYMPH % 28.7 % (8-40); MCH 31.1 pg (25.7-33.7); MCHC 32.6 g/dl (32.0-35.9); MEAN CELL VOLUME 95.5 fl (80-96); MEAN PLT VOLUME 6.8 fl (7.5-11.1); NEUT % 59.4 % (42.8-82.8); PLATELET COUNT 412 K/MM3 (134-434); RBC 2.15 M/mm3 (4.00-5.60); RDW 17.3 % (11.9-15.9); WHITE BLOOD COUNT 5.8 K/mm3 (4.0-10.8)
[2019-06-08 15:49] LABS: HEMOGLOBIN 6.7 GM/dl (11.7-16.9)
[2019-06-08 15:55] LABS: ALBUMIN 2.2 g/dl (3.4-5.0); BILIRUBIN,TOTAL 0.5 mg/dl (0.2-1); CALCIUM 7.9 mg/dl (8.5-10); POTASSIUM 4.1 mmol/L (3.5-5.1); TOT PROT 5.1 g/dl (6.4-8.2)
[2019-06-08 16:00] LABS: INR 1.16 (0.82-1.09); PROTHROMBIN TIME (PATIENT) 12.9 SEC (10.2-13.0)
--- NOTE | 2019-06-08 16:08 | PDOC ---
Documentation entered by Roya Claros SCRIBE, acting as scribe for Stanton Ahuja MD. Stanton Ahuja MD: This documentation has been prepared by the scribeHarlan Maria, SCRIBE, under my direction and personally reviewed by me in its entirety. I confirm that the documentation accurately reflects all work, treatment, procedures, and medical decision making performed by me. History of Present Illness - General Chief Complaint: Shortness of Breath Stated Complaint: ANEMIA Time Seen by Provider: 06/08/19 14:29 History Source: Patient - History of Present Illness Initial Comments: 06/08/19 15:21 The patient is an 83 year old male with a significant past medical history of scalp melanoma diagnosed 11/2014, prior CABG X4 in 1999 and stent in 2016,CAD,SVT , HTN, HLD, hypothyroidism and lung cancer on targeted therapy who presents to the emergency room for evaluation of having a hemoglobin of 7. As per patient, he reports coming into [place] for his routine blood work for Dr. Abdi and was referred to the emergency room by phlebotomy due to a low hemoglobin, he reports having his blood drawn on 05/05/19, and states having a hemoglobin of 12.1. Patient also endorses associated shortness of breath and worsens with exertion, generalized weakness, multiple episodes of dark stools, and lightheadedness. Denies loss of consciousness. He denies any recent fevers, chills.He denies any recent chest pain or shortness of breath. He denies any recent dysuria, frequency, urgency or hematuria. Allergies: Sulfa,sulfamethoxazole and trimethoprim. Past surgical history: Inguinal hernia repair, quintuple bypass-1999; Stent ( 2016), thoracentesis, Left hip replacement 2008, right hip replacement Past History - Past Medical History Allergies/Adverse Reactions: Allergies Allergy/AdvReac Type Severity Reaction Status Date / Time Sulfa (Sulfonamide Allergy Verified 06/08/19 14:14 Antibiotics) sulfamethoxazole Allergy Verified 06/08/19 14:14 [From Bactrim] trimethoprim [From Bactrim] Allergy Verified 06/08/19 14:14 Home Medications: Ambulatory Orders Aspirin [Aspir 81] 81 mg PO DAILY 12/10/12 Cholecalciferol (Vitamin D3) [Vitamin D3] 2,000 unit PO DAILY tablet 10/31/16 Simvastatin 40 mg PO HS 06/18/18 Levothyroxine [Synthroid -] 50 mcg PO DAILY@0700 06/29/18 Dabrafenib Mesylate [Tafinlar] 100 mg PO BID 11/26/18 Metoprolol Succinate [Toprol XL -] 37.5 mg PO AM 11/26/18 Ramipril 5 mg PO DAILY 11/26/18 Trametinib Dimethyl Sulfoxide [Mekinist] 1.5 mg PO DAILY 11/26/18 Anemia: No Asthma: No 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) Cardiac Disorders: Yes (CAD; SVT) CVA: No COPD: No CHF: No Dementia: No Diabetes: No GI Disorders: No Disorders: No HTN: Yes Hypercholesterolemia: Yes (DX 1984) Liver Disease: No Seizures: No Thyroid Disease: Yes (HYPOTHYROIDISM) - Surgical History Abdominal Surgery: Yes (INGUINAL HERNIA REPAIR) Appendectomy: No Cardiac Surgery: Yes (QUINTUPLE BYPASS-1999; Stent (2016)) Cholecystectomy: No Lung Surgery: (thoracentesis) Neurologic Surgery: No Orthopedic Surgery: Yes (LEFT HIP REPLACEMENT-2008; righ hip replacement) - Immunization History Immunization Up to Date: Yes - Psycho Social/Smoking Cessation Hx Smoking History: Unknown if ever smoked Years of Tobacco Use: 40 Have you smoked in the past 12 months: No Number of Cigarettes Smoked Daily: 25 If you are a former smoker, when did you quit?: 1999 Information on smoking cessation initiated: No Hx Alcohol Use: No Drug/Substance Use Hx: No Substance Use Type: None Hx Substance Use Treatment: No Review of Systems - Review of Systems Able to Perform ROS?: Yes Comments:: 06/08/19 15:22 A complete review of 10 out of 10 review of systems is taken and is negative apart from what is previously mentioned below and in the HPI. *Physical Exam - Vital Signs Last Vital Signs Temp Pulse Resp BP Pulse Ox 97.4 F L 81 20 105/44 L 99 06/08/19 14:14 06/08/19 14:14 06/08/19 14:14 06/08/19 14:14 06/08/19 14:14 - Physical Exam 06/08/19 15:25 Vitals: Triage Vital signs reviewed General Appearance:+Pale. No acute distress, well nourished well developed, Head: Atraumatic, normocephalic Neck: Supple;No Nuchal rigidity Chest Wall: Nontender Cardiac: Regular rate and rhythm, no murmurs, no rubs, no gallops, Lungs: Clear to auscultation bilateral, good air movement bilaterally, Abdomen: Soft, nondistended, normal bowel sounds, nontender to palpation Rectal: Exam deferred Extremities: Full range of motion to all extremities, no cyanosis, clubbing, or edema Skin: Warm and dry, no rashes or lesions, no petechiae Psych: normal mood, normal affect ED Treatment Course - LABORATORY CBC & Chemistry Diagram: 06/08/19 15:14 06/08/19 15:14 - ADDITIONAL ORDERS Additional order review: Laboratory Results 06/08/19 06/08/19 06/08/19 15:17 15:14 15:14 PT with INR 12.9 INR 1.16 PTT (Actin FS) Sodium 136 Potassium 4.1 Chloride 107 Carbon Dioxide 26 Anion Gap 3 L BUN 16.0 Creatinine 1.0 Est GFR (CKD-EPI)AfAm 80.88 Est GFR (CKD-EPI)NonAf 69.78 Random Glucose 153 H Calcium 7.9 L Total Bilirubin 0.5 AST 22 ALT 21 Alkaline Phosphatase 106 Total Protein 5.1 L Albumin 2.2 L Stool Occult Blood Blood Type Cancelled 06/08/19 06/08/19 15:14 15:00 PT with INR INR PTT (Actin FS) 29.9 Sodium Potassium Chloride Carbon Dioxide Anion Gap BUN Creatinine Est GFR (CKD-EPI)AfAm Est GFR (CKD-EPI)NonAf Random Glucose Calcium Total Bilirubin AST ALT Alkaline Phosphatase Total Protein Albumin Stool Occult Blood Negative Blood Type 06/08/19 15:14 RBC 2.15 L MCV 95.5 MCHC 32.6 RDW 17.3 H MPV 6.8 L Neutrophils % 59.4 D Lymphocytes % 28.7 D Monocytes % 11.0 H Eosinophils % 0.5 Basophils % 0.4 - RADIOLOGY Radiology Studies Ordered: Category Date Time Status CXRPORT [CHEST X-RAY PORTABLE*] [RAD] Stat Radiology 06/08/19 14:33 Completed Medical Decision Making - Medical Decision Making 06/08/19 16:07 Symptomatic anemia hemoglobin 6.73 to 4 days of melena now resolved guaiac negative brown stool on exam today very remote GI history last colonoscopy was by Dr. Zavaleta with the [facility] many years ago per the patient No evidence of active bleed at this time will transfuse 2 units PRBC and admit to medicine for further management. Discharge - Discharge Information Problems reviewed: Yes Clinical Impression/Diagnosis: GI bleed Qualifiers: GI bleed type/associated pathology: melena Qualified Code(s): K92.1 - Melena Condition: Fair - Admission Yes - Follow up/Referral - Patient Discharge Instructions - Post Discharge Activity
[2019-06-08 20:02] LABS: MAGNESIUM 1.8 mg/dL (1.8-2.4); PHOSPHOROUS 3.4 mg/dl (2.5-4.9)
[2019-06-08 21:09] LABS: IRON SERUM 21 ug/dL (50-175); TOTAL IRON BINDING CAPACITY 228 ug/dL (250-450)
[2019-06-08] MEDS ORDERED: ATORVASTATIN CA 20 MG TABLET (FP) PO SCH (22:00)
--- NOTE | 2019-06-08 22:11 | HP ---
CHIEF COMPLAINT: fatigue PCP: Edmundoer HISTORY OF PRESENT ILLNESS: This is an 83 year old male with a past medical history significant for CAD s/p CABG and PCI, lung CA on tafinlar and mekinist who presented to the ED at the request of his PCP for anemia. Pt reports feeling fatigued with lightheadedness for the past week. He had routine lab work today which revealed H/H 7.0/21.3. He denies chest pain, palpitations but reports dyspnea on exertion. Denies abdominal pain, N/V/D, poor appetite. ER course was notable for: (1) Hgb 6.7 Recent Travel: pt denies PAST MEDICAL HISTORY: melanoma 2014, CAD, 5vCABG 200, PCI 2017, SVT, HTN, HLD, hypothyroid, lung CA PAST SURGICAL HISTORY: CABG L hip replacement approx 10y ago R hip replacement 01/2018 hernia repair many years ago Social History: Smoking: quit 1999, 45 pack year history Alcohol: none x 20 years Drugs: pt denies Allergies Sulfa (Sulfonamide Antibiotics) Allergy (Verified 06/08/19 14:14) sulfamethoxazole [From Bactrim] Allergy (Verified 06/08/19 14:14) HOME MEDICATIONS: 3 Medication Instructions Recorded Aspirin [Aspir 81] 81 mg PO DAILY 12/10/12 Cholecalciferol (Vitamin D3) 2,000 unit PO DAILY tablet 02/12/16 [Vitamin D3] Simvastatin 40 mg PO HS 06/18/18 Levothyroxine [Synthroid -] 50 mcg PO DAILY@0700 06/29/18 Dabrafenib Mesylate [Tafinlar] 100 mg PO BID 11/26/18 Metoprolol Succinate [Toprol XL -] 25 mg PO AM; 12.5mg HS 11/26/18 Ramipril 5 mg PO DAILY 11/26/18 Trametinib Dimethyl Sulfoxide 1.5 mg PO DAILY 11/26/18 [Mekinist] REVIEW OF SYSTEMS CONSTITUTIONAL: Present: generalized weakness, malaise Absent: fever, chills, diaphoresis, loss of appetite, weight change HEENT: Absent: rhinorrhea, nasal congestion, throat pain, throat swelling, difficulty swallowing, mouth swelling, ear pain, eye pain, visual changes CARDIOVASCULAR: Absent: chest pain, syncope, palpitations, irregular heart rate, lightheadedness , peripheral edema RESPIRATORY: Present: dyspnea with exertion Absent: cough, orthopnea, wheezing, stridor, hemoptysis GASTROINTESTINAL: Absent: abdominal pain, abdominal distension, nausea, vomiting, diarrhea, constipation, melena, hematochezia GENITOURINARY: Absent: dysuria, frequency, urgency, hesitancy, hematuria, flank pain, genital pain MUSCULOSKELETAL: Absent: myalgia, arthralgia, joint swelling, back pain, neck pain SKIN: Absent: rash, itching, pallor HEMATOLOGIC/IMMUNOLOGIC: Absent: easy bleeding, easy bruising, lymphadenopathy, frequent infections ENDOCRINE: Absent: unexplained weight gain, unexplained weight loss, heat intolerance, cold intolerance NEUROLOGIC: Absent: headache, focal weakness or paresthesias, dizziness, unsteady gait, seizure, mental status changes, bladder or bowel incontinence PSYCHIATRIC: Absent: anxiety, depression, suicidal or homicidal ideation, hallucinations. PHYSICAL EXAMINATION Vital Signs - 24 hr 3 06/08/19 06/08/19 06/08/19 14:14 18:00 18:03 Temperature 97.4 F L 97.8 F 98.1 F Pulse Rate 81 79 86 Respiratory 20 16 20 Rate Blood Pressure 105/44 L 129/53 L 100/50 L O2 Sat by Pulse 99 Oximetry (%) 3 06/08/19 20:57 Temperature 98.1 F Pulse Rate 78 Respiratory 18 Rate Blood Pressure 111/48 L O2 Sat by Pulse Oximetry (%) GENERAL: Awake, alert, and fully oriented, in no acute distress. HEAD: Normal with no signs of trauma. EYES: Pupils equal, round and reactive to light, extraocular movements intact, sclera anicteric, conjunctiva clear. No lid lag. EARS, NOSE, THROAT: Ears normal, nares patent, oropharynx clear without exudates. Moist mucous membranes. NECK: Normal range of motion, supple without lymphadenopathy, JVD, or masses. LUNGS: Breath sounds diminished right base, otherwise clear to auscultation bilaterally. No wheezes, and no crackles. No accessory muscle use. HEART: Regular rate and rhythm, normal S1 and S2 without murmur, rub or gallop. ABDOMEN: Soft, nontender, not distended, normoactive bowel sounds, no guarding, no rebound, no masses. No hepatomegaly or splenomegaly. MUSCULOSKELETAL: Normal range of motion at all joints. No bony deformities or tenderness. No CVA tenderness. UPPER EXTREMITIES: 2+ pulses, warm, well-perfused. No cyanosis. No clubbing. No peripheral edema. LOWER EXTREMITIES: 2+ pulses, warm, well-perfused. No calf tenderness. tr peripheral edema right. NEUROLOGICAL: Cranial nerves II-XII intact. Normal speech. Normal gait. PSYCHIATRIC: Cooperative. Good eye contact. Appropriate mood and affect. SKIN: Warm, dry, normal turgor, no rashes or lesions noted, normal capillary refill. Laboratory Results - last 24 hr 3 06/08/19 06/08/19 06/08/19 15:00 15:14 15:14 WBC 5.8 RBC 2.15 L Hgb 6.7 L* Hct 20.6 L MCV 95.5 MCH 31.1 MCHC 32.6 RDW 17.3 H Plt Count 412 MPV 6.8 L Absolute Neuts (auto) 3.5 Neutrophils % 59.4 D Lymphocytes % 28.7 D Monocytes % 11.0 H Eosinophils % 0.5 Basophils % 0.4 PT with INR INR PTT (Actin FS) 29.9 Sodium Potassium Chloride Carbon Dioxide Anion Gap BUN Creatinine Est GFR (CKD-EPI)AfAm Est GFR (CKD-EPI)NonAf Random Glucose Calcium Phosphorus Magnesium Iron TIBC Iron Saturation Unsaturated IBC Total Bilirubin AST ALT Alkaline Phosphatase LD Total Troponin I Total Protein Albumin Vitamin B12 Serum Folate TSH Stool Occult Blood Negative Blood Type Antibody Screen Crossmatch 3 06/08/19 06/08/19 06/08/19 15:14 15:14 15:14 WBC RBC Hgb Hct MCV MCH MCHC RDW Plt Count MPV Absolute Neuts (auto) Neutrophils % Lymphocytes % Monocytes % Eosinophils % Basophils % PT with INR 12.9 INR 1.16 PTT (Actin FS) Sodium 136 Potassium 4.1 Chloride 107 Carbon Dioxide 26 Anion Gap 3 L BUN 16.0 Creatinine 1.0 Est GFR (CKD-EPI)AfAm 80.88 Est GFR (CKD-EPI)NonAf 69.78 Random Glucose 153 H Calcium 7.9 L Phosphorus Magnesium Iron TIBC Iron Saturation Unsaturated IBC Total Bilirubin 0.5 AST 22 ALT 21 Alkaline Phosphatase 106 LD Total Troponin I Total Protein 5.1 L Albumin 2.2 L Vitamin B12 Serum Folate TSH Stool Occult Blood Blood Type O POSITIVE Antibody Screen Negative Crossmatch See Detail 3 06/08/19 06/08/19 06/08/19 15:14 15:17 18:10 WBC RBC Hgb Hct MCV MCH MCHC RDW Plt Count MPV Absolute Neuts (auto) Neutrophils % Lymphocytes % Monocytes % Eosinophils % Basophils % PT with INR INR PTT (Actin FS) Sodium Potassium Chloride Carbon Dioxide Anion Gap BUN Creatinine Est GFR (CKD-EPI)AfAm Est GFR (CKD-EPI)NonAf Random Glucose Calcium Phosphorus 3.4 Magnesium 1.8 Iron 21 L TIBC 228 L Iron Saturation 9 L Unsaturated IBC 207 Total Bilirubin AST ALT Alkaline Phosphatase LD Total 125 Troponin I < 0.03 < 0.03 Total Protein Albumin Vitamin B12 629 Serum Folate > 20 H TSH 6.39 H D Stool Occult Blood Blood Type Cancelled Antibody Screen Crossmatch ECG: Normal sinus rhythm rate 73, QYC 418 T wave inversions lead 3, aVF, V4-V6, flattening lead 2; new when c/w ECG 2018 CXR: A single view the chest was been submitted. Since the prior study of 02/08/2019 , again noted is the pleural fluid and atelectasis at the right base with sternal sutures and clips and clear left lung. The right upper lobe is clear. Correlation recommended. ASSESSMENT/PLAN: 83 year old male with a past medical history significant for CAD s/p CABG and PCI, lung CA on tafinlar and mekinist who presented to the ED at the request of his PCP for anemia now admitted for acute anemia. anemia - likely SOL, ? GI bleed - 2uPRBC as ordered - stool for occult blood - GI consult - NPO after midnight lung cancer - hold tafinlar and mekinist for now CAD/HTN/HLD - cont home lipitor, bp meds held for now in s/o soft BP, resume in am if BP ok - trop neg hypothyroid - resume home levothyroxine FEN - liquids as tolerated until MN - BMP in am, replete lytes as indicated - NPO after MN Dispo: pt currently requires inpatient management of his emergent condition. Family Medical History Family Hx Cardiac Disorders: Mother Family Hx Coronary Artery Disease: Brother Visit type - Emergency Visit Emergency Visit: Yes ED Registration Date: 06/08/19 Care time: The patient presented to the Emergency Department on the above date and was hospitalized for further evaluation of their emergent condition. - New Patient This patient is new to me today: Yes Date on this admission: 06/08/19 - Critical Care Critical Care patient: No
[2019-06-08] MEDS ORDERED: FUROSEMIDE 40 MG/4 ML INJECTABLE VIAL IVPUSH ONE (22:35)
[2019-06-08] MEDS ORDERED: MAGNESIUM SULF 50% (8.12 MEQ/2 ML-1 GM VIAL) IVPB ONE (22:45)
[2019-06-09 06:35] VITALS: BP 145/56; PULSE 69; TEMP 98.2
[2019-06-09] MEDS ORDERED: LEVOTHYROXINE NA 50 MCG TABLET (FP) PO SCH (07:00)
[2019-06-09 07:51] LABS: ALBUMIN 2.2 g/dl (3.4-5.0); BILIRUBIN,TOTAL 0.5 mg/dl (0.2-1); CALCIUM 7.9 mg/dl (8.5-10); PHOSPHOROUS 3.4 mg/dl (2.5-4.9); POTASSIUM 4.3 mmol/L (3.5-5.1); TOT PROT 5.2 g/dl (6.4-8.2)
[2019-06-09 07:53] LABS: BASO % 0.2 % (0-2.0); EOS % 0.6 % (0-4.5); HEMATOCRIT 27.7 % (35.4-49); HEMOGLOBIN 9.4 GM/dl (11.7-16.9); MCH 30.9 pg (25.7-33.7); MCHC 33.7 g/dl (32.0-35.9); MEAN CELL VOLUME 91.7 fl (80-96); MEAN PLT VOLUME 6.7 fl (7.5-11.1); MONO % 11.2 % (3.8-10.2); PLATELET COUNT 363 K/MM3 (134-434); RBC 3.02 M/mm3 (4.00-5.60); RDW 15.2 % (11.9-15.9); WHITE BLOOD COUNT 5.9 K/mm3 (4.0-10.8)
[2019-06-09] MEDS ORDERED: LIDOCAINE HCL/PF 2% SDV 5ML VIAL ONE (09:02)
[2019-06-09] MEDS ORDERED: PROPOFOL 20 ML ONE ×2 (09:02)
--- NOTE | 2019-06-09 09:05 | PN ---
Progress Note (short form) - Note Progress Note: Patient seen and consult dictated. Appears improved s/p PRBC transfusion. Would hold aspirin, treat empirically with PPI daily and to arrange for EGD this am.
--- NOTE | 2019-06-09 09:41 | PN ---
Physical Exam: SUBJECTIVE: Patient seen and examined OBJECTIVE: Vital Signs Period Temp Pulse Resp BP Sys/Li Pulse Ox Last 24 Hr 97.4 F-98.5 F 68-86 16-20 100-145/44-58 98-100 GENERAL: The patient is awake, alert, and fully oriented, in no acute distress. HEAD: Normal with no signs of trauma. EYES: PERRL, extraocular movements intact, sclera anicteric, conjunctiva clear. No ptosis. ENT: Ears normal, nares patent, oropharynx clear without exudates, moist mucous membranes. NECK: Trachea midline, full range of motion, supple. LUNGS: Breath sounds equal, clear to auscultation bilaterally, no wheezes, no crackles, no accessory muscle use. HEART: Regular rate and rhythm, S1, S2 without murmur, rub or gallop. ABDOMEN: Soft, nontender, nondistended, normoactive bowel sounds, no guarding, no rebound, no hepatosplenomegaly, no masses. EXTREMITIES: 2+ pulses, warm, well-perfused, no edema. NEUROLOGICAL: Cranial nerves II through XII grossly intact. Normal speech, gait not observed. PSYCH: Normal mood, normal affect. SKIN: Warm, dry, normal turgor, no rashes or lesions noted Laboratory Results - last 24 hr 06/08/19 06/08/19 06/08/19 15:00 15:14 15:14 WBC 5.8 RBC 2.15 L Hgb 6.7 L* Hct 20.6 L MCV 95.5 MCH 31.1 MCHC 32.6 RDW 17.3 H Plt Count 412 MPV 6.8 L Absolute Neuts (auto) 3.5 Neutrophils % 59.4 D Lymphocytes % 28.7 D Monocytes % 11.0 H Eosinophils % 0.5 Basophils % 0.4 PT with INR INR PTT (Actin FS) 29.9 Sodium Potassium Chloride Carbon Dioxide Anion Gap BUN Creatinine Est GFR (CKD-EPI)AfAm Est GFR (CKD-EPI)NonAf POC Glucometer Random Glucose Calcium Phosphorus Magnesium Iron TIBC Iron Saturation Unsaturated IBC Total Bilirubin AST ALT Alkaline Phosphatase LD Total Troponin I Total Protein Albumin Vitamin B12 Serum Folate TSH Stool Occult Blood Negative Blood Type Antibody Screen Crossmatch 06/08/19 06/08/19 06/08/19 15:14 15:14 15:14 WBC RBC Hgb Hct MCV MCH MCHC RDW Plt Count MPV Absolute Neuts (auto) Neutrophils % Lymphocytes % Monocytes % Eosinophils % Basophils % PT with INR 12.9 INR 1.16 PTT (Actin FS) Sodium 136 Potassium 4.1 Chloride 107 Carbon Dioxide 26 Anion Gap 3 L BUN 16.0 Creatinine 1.0 Est GFR (CKD-EPI)AfAm 80.88 Est GFR (CKD-EPI)NonAf 69.78 POC Glucometer Random Glucose 153 H Calcium 7.9 L Phosphorus Magnesium Iron TIBC Iron Saturation Unsaturated IBC Total Bilirubin 0.5 AST 22 ALT 21 Alkaline Phosphatase 106 LD Total Troponin I Total Protein 5.1 L Albumin 2.2 L Vitamin B12 Serum Folate TSH Stool Occult Blood Blood Type O POSITIVE Antibody Screen Negative Crossmatch See Detail 06/08/19 06/08/19 06/08/19 15:14 15:17 18:10 WBC RBC Hgb Hct MCV MCH MCHC RDW Plt Count MPV Absolute Neuts (auto) Neutrophils % Lymphocytes % Monocytes % Eosinophils % Basophils % PT with INR INR PTT (Actin FS) Sodium Potassium Chloride Carbon Dioxide Anion Gap BUN Creatinine Est GFR (CKD-EPI)AfAm Est GFR (CKD-EPI)NonAf POC Glucometer Random Glucose Calcium Phosphorus Magnesium Iron TIBC Iron Saturation Unsaturated IBC Total Bilirubin AST ALT Alkaline Phosphatase LD Total 125 Troponin I < 0.03 Total Protein Albumin Vitamin B12 Serum Folate TSH 6.39 H D Stool Occult Blood Blood Type Cancelled Antibody Screen Crossmatch 06/08/19 06/08/19 06/08/19 18:10 18:10 18:10 WBC RBC Hgb Hct MCV MCH MCHC RDW Plt Count MPV Absolute Neuts (auto) Neutrophils % Lymphocytes % Monocytes % Eosinophils % Basophils % PT with INR INR PTT (Actin FS) Sodium Potassium Chloride Carbon Dioxide Anion Gap BUN Creatinine Est GFR (CKD-EPI)AfAm Est GFR (CKD-EPI)NonAf POC Glucometer Random Glucose Calcium Phosphorus Magnesium Iron 21 L TIBC 228 L Iron Saturation 9 L Unsaturated IBC 207 Total Bilirubin AST ALT Alkaline Phosphatase LD Total Troponin I < 0.03 Total Protein Albumin Vitamin B12 629 Serum Folate > 20 H TSH Stool Occult Blood Blood Type Antibody Screen Crossmatch 06/08/19 06/09/19 06/09/19 18:10 06:18 07:10 WBC 5.9 RBC 3.02 L Hgb 9.4 L Hct 27.7 L D MCV 91.7 MCH 30.9 MCHC 33.7 RDW 15.2 D Plt Count 363 MPV 6.7 L Absolute Neuts (auto) 3.6 Neutrophils % 60.0 Lymphocytes % 28.0 Monocytes % 11.2 H Eosinophils % 0.6 Basophils % 0.2 PT with INR INR PTT (Actin FS) Sodium Potassium Chloride Carbon Dioxide Anion Gap BUN Creatinine Est GFR (CKD-EPI)AfAm Est GFR (CKD-EPI)NonAf POC Glucometer 121 Random Glucose Calcium Phosphorus 3.4 Magnesium 1.8 Iron TIBC Iron Saturation Unsaturated IBC Total Bilirubin AST ALT Alkaline Phosphatase LD Total Troponin I Total Protein Albumin Vitamin B12 Serum Folate TSH Stool Occult Blood Blood Type Antibody Screen Crossmatch 06/09/19 07:10 WBC RBC Hgb Hct MCV MCH MCHC RDW Plt Count MPV Absolute Neuts (auto) Neutrophils % Lymphocytes % Monocytes % Eosinophils % Basophils % PT with INR INR PTT (Actin FS) Sodium 136 Potassium 4.3 Chloride 102 Carbon Dioxide 28 Anion Gap 6 L BUN 14.0 Creatinine 1.0 Est GFR (CKD-EPI)AfAm 80.88 Est GFR (CKD-EPI)NonAf 69.78 POC Glucometer Random Glucose 124 H Calcium 7.9 L Phosphorus 3.4 Magnesium 2.0 Iron TIBC Iron Saturation Unsaturated IBC Total Bilirubin 0.5 AST 18 ALT 19 Alkaline Phosphatase 110 LD Total Troponin I Total Protein 5.2 L Albumin 2.2 L Vitamin B12 Serum Folate TSH Stool Occult Blood Blood Type Antibody Screen Crossmatch Active Medications Generic Name Dose Route Start Last Admin Trade Name Freq PRN Reason Stop Dose Admin Atorvastatin Calcium 20 mg 06/08/19 22:00 06/08/19 21:57 Lipitor - PO 20 mg HS [facility] Administration Cholecalciferol 2,000 unit 06/09/19 10:00 Vitamin D3 - PO DAILY SAVANNA Finasteride 5 mg 06/09/19 10:00 Proscar - PO DAILY SAVANNA Levothyroxine Sodium 50 mcg 06/09/19 07:00 06/09/19 06:21 Synthroid - PO 50 mcg DAILY@0700 SAVANNA Administration ASSESSMENT/PLAN:
--- NOTE | 2019-06-09 09:47 | PN ---
Progress Note (short form) - Note Progress Note: Upper endoscopy performed with findings notable for a moderate-sized duodenal bulb ulcer and moderate gastritis. No active bleeding seen and report in chart. Rec: avoid ASA, NSAIDs begin PPI clear liquid diet follow CBC await gastric biopsy/pathology (r/o H pylori)
[2019-06-09] MEDS ORDERED: PANTOPRAZOLE 40 MG TABLET PO SCH (10:00)
[2019-06-09] MEDS ORDERED: CHOLECALCIFEROL (VIT D3) 1,000 UNIT (25 MCG) TABLET PO SCH (10:00)
[2019-06-09] MEDS ORDERED: FINASTERIDE 5 MG TABLET (FP) PO SCH (10:00)
[2019-06-09] MEDS ORDERED: PRESCRIPTION PAD 1 EACH EACH NR ONE (13:01)
--- NOTE | 2019-06-09 13:18 | DS ---
Physical Exam: SUBJECTIVE: Patient seen and examined OBJECTIVE: Vital Signs Period Temp Pulse Resp BP Sys/Li Pulse Ox Last 24 Hr 97.4 F-98.5 F 68-86 16-20 100-145/44-58 98-100 PHYSICAL EXAM GENERAL: The patient is awake, alert, and fully oriented, in no acute distress. HEAD: Normal with no signs of trauma. EYES: PERRL, extraocular movements intact, sclera anicteric, conjunctiva clear. ENT: Ears normal, nares patent, oropharynx clear without exudates, moist mucous membranes. NECK: Trachea midline, full range of motion, supple. LUNGS: Breath sounds equal, clear to auscultation bilaterally, no wheezes, no crackles, no accessory muscle use. HEART: Regular rate and rhythm, S1, S2 without murmur, rub or gallop. ABDOMEN: Soft, nontender, nondistended, normoactive bowel sounds, no guarding, no rebound, no hepatosplenomegaly, no masses. EXTREMITIES: 2+ pulses, warm, well-perfused, no edema. NEUROLOGICAL: Cranial nerves II through XII grossly intact. Normal speech, gait not observed. PSYCH: Normal mood, normal affect. SKIN: Warm, dry, normal turgor, no rashes or lesions noted. LABS Laboratory Results - last 24 hr 06/08/19 06/08/19 06/08/19 15:00 15:14 15:14 WBC 5.8 RBC 2.15 L Hgb 6.7 L* Hct 20.6 L MCV 95.5 MCH 31.1 MCHC 32.6 RDW 17.3 H Plt Count 412 MPV 6.8 L Absolute Neuts (auto) 3.5 Neutrophils % 59.4 D Lymphocytes % 28.7 D Monocytes % 11.0 H Eosinophils % 0.5 Basophils % 0.4 PT with INR INR PTT (Actin FS) 29.9 Sodium Potassium Chloride Carbon Dioxide Anion Gap BUN Creatinine Est GFR (CKD-EPI)AfAm Est GFR (CKD-EPI)NonAf POC Glucometer Random Glucose Calcium Phosphorus Magnesium Iron TIBC Iron Saturation Unsaturated IBC Total Bilirubin AST ALT Alkaline Phosphatase LD Total Troponin I Total Protein Albumin Vitamin B12 Serum Folate TSH Stool Occult Blood Negative Blood Type Antibody Screen Crossmatch 06/08/19 06/08/19 06/08/19 15:14 15:14 15:14 WBC RBC Hgb Hct MCV MCH MCHC RDW Plt Count MPV Absolute Neuts (auto) Neutrophils % Lymphocytes % Monocytes % Eosinophils % Basophils % PT with INR 12.9 INR 1.16 PTT (Actin FS) Sodium 136 Potassium 4.1 Chloride 107 Carbon Dioxide 26 Anion Gap 3 L BUN 16.0 Creatinine 1.0 Est GFR (CKD-EPI)AfAm 80.88 Est GFR (CKD-EPI)NonAf 69.78 POC Glucometer Random Glucose 153 H Calcium 7.9 L Phosphorus Magnesium Iron TIBC Iron Saturation Unsaturated IBC Total Bilirubin 0.5 AST 22 ALT 21 Alkaline Phosphatase 106 LD Total Troponin I Total Protein 5.1 L Albumin 2.2 L Vitamin B12 Serum Folate TSH Stool Occult Blood Blood Type O POSITIVE Antibody Screen Negative Crossmatch See Detail 06/08/19 06/08/19 06/08/19 15:14 15:17 18:10 WBC RBC Hgb Hct MCV MCH MCHC RDW Plt Count MPV Absolute Neuts (auto) Neutrophils % Lymphocytes % Monocytes % Eosinophils % Basophils % PT with INR INR PTT (Actin FS) Sodium Potassium Chloride Carbon Dioxide Anion Gap BUN Creatinine Est GFR (CKD-EPI)AfAm Est GFR (CKD-EPI)NonAf POC Glucometer Random Glucose Calcium Phosphorus Magnesium Iron TIBC Iron Saturation Unsaturated IBC Total Bilirubin AST ALT Alkaline Phosphatase LD Total 125 Troponin I < 0.03 Total Protein Albumin Vitamin B12 Serum Folate TSH 6.39 H D Stool Occult Blood Blood Type Cancelled Antibody Screen Crossmatch 06/08/19 06/08/19 06/08/19 18:10 18:10 18:10 WBC RBC Hgb Hct MCV MCH MCHC RDW Plt Count MPV Absolute Neuts (auto) Neutrophils % Lymphocytes % Monocytes % Eosinophils % Basophils % PT with INR INR PTT (Actin FS) Sodium Potassium Chloride Carbon Dioxide Anion Gap BUN Creatinine Est GFR (CKD-EPI)AfAm Est GFR (CKD-EPI)NonAf POC Glucometer Random Glucose Calcium Phosphorus Magnesium Iron 21 L TIBC 228 L Iron Saturation 9 L Unsaturated IBC 207 Total Bilirubin AST ALT Alkaline Phosphatase LD Total Troponin I < 0.03 Total Protein Albumin Vitamin B12 629 Serum Folate > 20 H TSH Stool Occult Blood Blood Type Antibody Screen Crossmatch 06/08/19 06/09/19 06/09/19 18:10 06:18 07:10 WBC 5.9 RBC 3.02 L Hgb 9.4 L Hct 27.7 L D MCV 91.7 MCH 30.9 MCHC 33.7 RDW 15.2 D Plt Count 363 MPV 6.7 L Absolute Neuts (auto) 3.6 Neutrophils % 60.0 Lymphocytes % 28.0 Monocytes % 11.2 H Eosinophils % 0.6 Basophils % 0.2 PT with INR INR PTT (Actin FS) Sodium Potassium Chloride Carbon Dioxide Anion Gap BUN Creatinine Est GFR (CKD-EPI)AfAm Est GFR (CKD-EPI)NonAf POC Glucometer 121 Random Glucose Calcium Phosphorus 3.4 Magnesium 1.8 Iron TIBC Iron Saturation Unsaturated IBC Total Bilirubin AST ALT Alkaline Phosphatase LD Total Troponin I Total Protein Albumin Vitamin B12 Serum Folate TSH Stool Occult Blood Blood Type Antibody Screen Crossmatch 06/09/19 07:10 WBC RBC Hgb Hct MCV MCH MCHC RDW Plt Count MPV Absolute Neuts (auto) Neutrophils % Lymphocytes % Monocytes % Eosinophils % Basophils % PT with INR INR PTT (Actin FS) Sodium 136 Potassium 4.3 Chloride 102 Carbon Dioxide 28 Anion Gap 6 L BUN 14.0 Creatinine 1.0 Est GFR (CKD-EPI)AfAm 80.88 Est GFR (CKD-EPI)NonAf 69.78 POC Glucometer Random Glucose 124 H Calcium 7.9 L Phosphorus 3.4 Magnesium 2.0 Iron TIBC Iron Saturation Unsaturated IBC Total Bilirubin 0.5 AST 18 ALT 19 Alkaline Phosphatase 110 LD Total Troponin I Total Protein 5.2 L Albumin 2.2 L Vitamin B12 Serum Folate TSH Stool Occult Blood Blood Type Antibody Screen Crossmatch HOSPITAL COURSE: Date of Admission:06/08/19 Date of Discharge: 06/09/19 Minutes to complete discharge: 35 Discharge Summary Problems reviewed: Yes Reason For Visit: GASTROINTESTIANL HEMORRHAGE Current Active Problems GI bleed (Acute) Condition: Improved - Instructions Diet, Activity, Other Instructions: Advance your diet slowly. Stay with clear liquids for 24 hours, then advance to full, then to low residue. A prescription has been sent to your pharmacy for Pepcid which you should take daily. We checked with your oncologist's office and they prefer you be on Pepcid rather than a proton pump inhibitor. Follow up care 1. Follow up with Dr. Swift within one week for results from the biopsy and further treatment and evaluation. His contact information is enclosed. 2. You have been given a prescription to have your blood drawn. Come back to [facility] on Friday, 06/11, register as an outpatient, and have your blood drawn. Stop by on the second floor and see [employer] Casandra Plummer. 3. You have an appointment to see Dr. Doss on Friday, 06/13 at 10:45am. He is a partner of Dr. Abdi and will give you a post-discharge examination. Return to the emergency department for any new or worsening symptoms. Referrals: Nik Doss MD [Staff Physician] - 06/14/19 10:45 am Benny Swfit MD [Staff Physician] - 1 Week Anderson Beasley MD [Non Staff, Medical] - Disposition: HOME - Home Medications Comprehensive Discharge Medication List: Ambulatory Orders Aspirin [Aspir 81] 81 mg PO DAILY 12/10/12 Cholecalciferol (Vitamin D3) [Vitamin D3] 2,000 unit PO DAILY tablet 02/12/16 Simvastatin 40 mg PO HS 06/18/18 Levothyroxine [Synthroid -] 50 mcg PO DAILY@0700 06/29/18 Dabrafenib Mesylate [Tafinlar] 100 mg PO BID 11/26/18 Metoprolol Succinate [Toprol XL -] 37.5 mg PO AM 11/26/18 Ramipril 5 mg PO DAILY 11/26/18 Trametinib Dimethyl Sulfoxide [Mekinist] 1.5 mg PO DAILY 11/26/18 Famotidine [Pepcid -] 40 mg PO DAILY #30 tablet 06/09/19 This patient is new to me today: Yes Date on this admission: 06/09/19 Emergency Visit: Yes ED Registration Date: 06/08/19 Care time: The patient presented to the Emergency Department on the above date and was hospitalized for further evaluation of their emergent condition. Critical Care patient: No - Discharge Referral Referred to [facility] Yes Physician Referral: Andrew Abdi MD (Int Med)
--- NOTE | 2019-06-09 15:06 | CONS ---
DATE OF CONSULTATION: 06/09/2019 I was asked to evaluate this 83-year-old gentleman, with anemia and dark stool last week, for possible GI blood loss. The patient is an 83-year-old gentleman with history of coronary artery disease, status post CABG, as well as a history of lung cancer, currently undergoing treatment at [facility]. The patient has had some mild fatigue over the past week and on routine blood work was noted to have a hemoglobin of 7 with a hematocrit of 21.3. He did note some dark stool for several days last week and has been on aspirin chronically. He denies any prior history of GI bleeding and denies any nausea, vomiting, or abdominal pain. He believes he had a colonoscopy 6 to 7 years ago with several benign polyps removed. The patient currently is seen status post 2 units of packed red blood cells and feels better with no respiratory complaints and less fatigue. On exam, he is a well-developed older gentleman, alert and oriented, with slightly pale conjunctivae, bilaterally clear lungs, and a regular rate and rhythm on cardiac exam. His abdomen is soft, flat, and nontender. His blood work this morning includes a hemoglobin of 9.4, hematocrit of 27.7. He has normal red cell indices and a normal platelet count. His BUN is 14 and creatinine 1.0. His serum iron level was 21 with a 9% saturation. Patient with anemia, possibly due to chronic blood loss. The patient has been on aspirin and did have dark stools last week, raising the possibility of chronic GI blood loss from gastritis or an ulcer. Patient currently is having aspirin held and has been transfused with packed blood cells. Arrangements will be made for upper endoscopy to evaluate further. KRISTEL GONSALEZ M.D. [id number]
--- NOTE | 2019-06-09 16:49 | EKG ---
Test Reason : Blood Pressure : / mmHG Vent. Rate : 073 BPM Atrial Rate : 073 BPM P-R Int : 148 ms QRS Dur : 090 ms QT Int : 380 ms P-R-T Axes : 049 -41 -38 degrees QTc Int : 418 ms NORMAL SINUS RHYTHM LEFT AXIS DEVIATION ABNORMAL ECG Confirmed by MD SASHA, LIDIA ([id number]) on 06/09/2019 4:49:12 PM Referred By: DR LUNDBERG Confirmed By:LIDIA BAEZ MD
--- NOTE | 2019-06-11 15:44 | PATH ---
Surgical Pathology Report Patient Name: ROXANN PURDY Med. Rec. 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 IMMUNOHISTOCHEMICAL STAIN FOR H. PYLORI IS NEGATIVE. Positive and negative controls (internal if applicable) show appropriate results. Electronically Signed Roya Castro M.D. Gross Description Received in formalin, labeled "biopsy stomach" is a rojo, irregular portion of soft tissue measuring 0.5 cm. in greatest dimension. The specimen is submitted in toto in one cassette. /06/10/2019 [facility]06/10/2019
== END 2019-06-09 13:37 | disposition home or self-care (01) | DRG 384 ==
LOC: FER 14:13 → FM/S 16:08
PROVIDERS: ADMIT Internal Medicine; ATTEND Nurse Practitioner Acute Care
PROC: 30233N1 Transfusion of Nonautologous Red Blood Cells into Peripheral Vein, Percutaneous Approach (ICD-10-PCS; 2019-06-08)
PROC: 0DB68ZX Excision of Stomach, Via Natural or Artificial Opening Endoscopic, Diagnostic (ICD-10-PCS; principal; 2019-06-09 09:38)
DX: K26.3 Acute duodenal ulcer without hemorrhage or perforation (principal); C34.90 Malignant neoplasm of unspecified part of unspecified bronchus or lung; K29.50 Unspecified chronic gastritis without bleeding; D50.9 Iron deficiency anemia, unspecified; I10 Essential (primary) hypertension; I25.10 Atherosclerotic heart disease of native coronary artery without angina pectoris; E78.5 Hyperlipidemia, unspecified; K44.9 Diaphragmatic hernia without obstruction or gangrene; Z95.1 Presence of aortocoronary bypass graft; Z95.5 Presence of coronary angioplasty implant and graft; E03.9 Hypothyroidism, unspecified
CPT/HCPCS: 36415; 36430; 36511; 71045-TC-FY; 80053; 80061; 82272; 82550; 82607; 82746; 82962; 83010; 83540; 83550; 83615; 83735; 84100; 84153; 84439; 84443; 84484; 85025; 85027; 85610; 85730; 86850; 86900; 86901; 86922; 88305-TC; 93005; 99285-25; P9038; P9058

== ENCOUNTER 2021-07-13 12:44 | Observation (INO) | payer OTHER, MEDICARE ==
[2021-07-13] MEDS ORDERED: ADENOSINE 6 MG/2 ML VIAL IVPUSH ONE ×2 (13:54→13:58)
[2021-07-13 14:09] LABS: BASO % 0.4 % (0-2.0); EOS % 2.8 % (0-4.5); HEMATOCRIT 38.9 % (35.4-49); HEMOGLOBIN 13.2 GM/dL (11.7-16.9); LYMPH % 13.6 % (8-40); MCH 31.3 pg (25.7-33.7); MCHC 33.9 g/dl (32.0-35.9); MEAN CELL VOLUME 92.3 fl (80-96); MEAN PLT VOLUME 7.4 fl (7.5-11.1); MONO % 10.6 % (3.8-10.2); NEUT % 72.6 % (42.8-82.8); PLATELET COUNT 158 10^3/uL (134-434); RBC 4.21 M/mm3 (4.00-5.60); RDW 14.1 % (11.9-15.9); WHITE BLOOD COUNT 4.7 K/mm3 (4.0-10.0)
[2021-07-13 14:12] LABS: INR 1.07 (0.83-1.09); PROTHROMBIN TIME (PATIENT) 12.3 SEC (9.7-13.0)
[2021-07-13 14:15] LABS: ACTIVATED PTT 36.8 SECONDS (25.2-36.5)
[2021-07-13] MEDS ORDERED: metoPROLOL SUCCINATE 25 MG TAB.SR.24H (FP) PO ONE (14:17)
[2021-07-13] MEDS ORDERED: metoPROLOL SUCCINATE 25 MG TAB.SR.24H (FP) ONE (14:24)
[2021-07-13 14:28] LABS: CALCIUM 9.2 mg/dL (8.5-10.1)
[2021-07-13 14:29] LABS: ALBUMIN 2.9 g/dl (3.4-5.0); BLOOD UREA NITROGEN 21.8 mg/dL (7-18)
[2021-07-13 14:32] LABS: CREATININE 1.2 mg/dL (0.55-1.3)
[2021-07-13 14:33] LABS: BILIRUBIN,TOTAL 0.3 mg/dL (0.2-1)
[2021-07-13 14:34] LABS: TOT PROT 6.7 g/dl (6.4-8.2)
[2021-07-13] MEDS ORDERED: SODIUM ZIRCONIUM CYCLOSILICATE (LOKELMA) 5 GM PACKET PO ONE (17:58)
[2021-07-13] MEDS ORDERED: SODIUM ZIRCONIUM CYCLOSILICATE (LOKELMA) 5 GM PACKET ONE (18:09)
[2021-07-13 22:41] LABS: URINE APPEARANCE CLEAR; URINE BILIRUBIN NEGATIVE (NEGATIVE); URINE COLOR YELLOW; URINE GLUCOSE (UA) NEGATIVE (NEGATIVE); URINE KETONE NEGATIVE (NEGATIVE); URINE LEUK ESTERASE NEGATIVE (NEGATIVE); URINE NITRITE NEGATIVE (NEGATIVE); URINE PROTEIN NEGATIVE (NEGATIVE); URINE UROBILINOGEN 0.2 mg/dL (0.2-1.0)
[2021-07-14 03:32] VITALS: BMI 27.4
[2021-07-14] MEDS ORDERED: LEVOTHYROXINE NA 75 MCG TABLET (FP) PO SCH (07:00)
[2021-07-14] MEDS ORDERED: ISOSORBIDE MONONITRATE 30 MG TAB.SR.24H (FP) PO SCH (07:00)
[2021-07-14 07:19] LABS: ALBUMIN 2.7 g/dl (3.4-5.0); CALCIUM 8.8 mg/dL (8.5-10.1)
[2021-07-14 07:20] LABS: BLOOD UREA NITROGEN 17.9 mg/dL (7-18)
[2021-07-14 07:24] LABS: BILIRUBIN,TOTAL 0.3 mg/dL (0.2-1); TOT PROT 6.3 g/dl (6.4-8.2)
[2021-07-14] MEDS ORDERED: ASPIRIN COATED 81 MG TABLET.EC PO SCH (10:00)
[2021-07-14] MEDS ORDERED: RAMIPRIL 5 MG CAPSULE PO SCH (10:00)
[2021-07-14] MEDS ORDERED: FINASTERIDE 5 MG TABLET (FP) PO SCH (10:00)
[2021-07-14] MEDS ORDERED: ENOXAPARIN NA (PORCINE) 40 MG/0.4 ML DISP.SYRIN SQ SCH (10:00)
[2021-07-14 15:16] VITALS: BP 127/56; PULSE 72; TEMP 98.7
[2021-07-14] MEDS ORDERED: SODIUM ZIRCONIUM CYCLOSILICATE (LOKELMA) 5 GM PACKET PO ONE (17:34)
[2021-07-14] MEDS ORDERED: ATORVASTATIN CA 20 MG TABLET (FP) PO SCH (22:00)
== END 2021-07-14 12:00 | disposition home or self-care (01) ==
LOC: JER 12:44 → JERBED 16:07 → INTOOBSV 16:07 → OBSVTOIN 16:07 → UNDOADMOB 16:07 → JERBED 21:07 → J4W 07-14 01:56 → UNDODISOB 07-14 12:00
PROVIDERS: ADMIT Internal Medicine; ATTEND Internal Medicine
PROC: 3E023GC Introduction of Other Therapeutic Substance into Muscle, Percutaneous Approach (ICD-10-PCS; principal; 2021-07-13)
PROC: 3E033GC Introduction of Other Therapeutic Substance into Peripheral Vein, Percutaneous Approach (ICD-10-PCS; 2021-07-13)
DX: I25.10 Atherosclerotic heart disease of native coronary artery without angina pectoris (principal); I47.1 Supraventricular tachycardia; Z85.820 Personal history of malignant melanoma of skin; Z95.1 Presence of aortocoronary bypass graft; Z96.642 Presence of left artificial hip joint; I11.9 Hypertensive heart disease without heart failure; Z95.5 Presence of coronary angioplasty implant and graft; C34.90 Malignant neoplasm of unspecified part of unspecified bronchus or lung; I35.0 Nonrheumatic aortic (valve) stenosis; Z88.2 Allergy status to sulfonamides; Z88.8 Allergy status to other drugs, medicaments and biological substances; Z87.891 Personal history of nicotine dependence; E03.9 Hypothyroidism, unspecified
CPT/HCPCS: 36415; 71046-TC-FY; 80053; 81003; 82550; 84484; 85025; 85610; 85730; 86850; 86900; 86901; 87086; 93005; 93010; 93306-TC; 96372; 96374; 99291; C9803-CS; G0378; U0003; U0005

== ENCOUNTER 2021-10-27 12:50 | Emergency (ER) | payer OTHER, MEDICARE ==
[2021-10-27 13:04] VITALS: BMI 26.6
[2021-10-27] MEDS ORDERED: BEBTELOVIMAB (EUA) 175 MG/2 ML VIAL IVPUSH ONE (13:54)
[2021-10-27 15:48] VITALS: BP 140/69; PULSE 63; TEMP 98.2
== END 2021-10-27 16:37 | disposition home or self-care (01) ==
LOC: JER 12:50
PROC: 3E033GC Introduction of Other Therapeutic Substance into Peripheral Vein, Percutaneous Approach (ICD-10-PCS; principal; 2021-10-27)
DX: U07.1 COVID-19 (principal)
CPT/HCPCS: 99284-25; M0222; Q0222

== ENCOUNTER 2022-08-17 21:22 | Emergency (ER) | payer OTHER, MEDICARE ==
[2022-08-17 21:31] VITALS: BP 123/81; PULSE 58; RESP 18; TEMP 97.9; BMI 26.6
== END 2022-08-17 22:11 | disposition home or self-care (01) ==
LOC: FER 21:22
DX: S51.812A Laceration without foreign body of left forearm, initial encounter (principal); W54.1XXA Struck by dog, initial encounter
CPT/HCPCS: 99282-25